=== PATIENT | female | born 1990 | race Caucasian/White ===

== ENCOUNTER 2021-01-26 09:36 | Outpatient (CLI) | payer OTHER, SELFPAY ==
--- NOTE | 2021-01-26 11:30 | NEURO_ITS ---
Impression: # Complains of hand numbness. # Severe right Carpal Tunnel Syndrome. # Mild left Carpal Tunnel Syndrome. # No ulnar neuropathy. # There is cross innervation from ulnar to median noted. # Normal needle/EMG exam. Nerve Conduction Studies Anti Sensory Summary Table Stim Site NR Peak (ms) P-T Amp (?V) Site1 Site2 Delta-P (ms) Dist (cm) Hari (m/s) Left Median Anti Sensory (2-3nd Digit) Wrist 4.1 5.1 Wrist 2-3nd Digit 4.1 14.0 34 Wrist 4.4 15.7 Wrist 2-3nd Digit 4.1 14.0 34 Right Median Anti Sensory (2-3nd Digit) Wrist 4.9 29.6 Wrist 2-3nd Digit 4.9 14.0 29 Wrist 5.6 9.5 Wrist 2-3nd Digit 4.9 14.0 29 Left Radial Anti Sensory (Base 1st Digit) Wrist 1.8 25.2 Wrist Base 1st Digit 1.8 0.0 Right Radial Anti Sensory (Base 1st Digit) Wrist 1.9 41.3 Wrist Base 1st Digit 1.9 0.0 Left Ulnar Anti Sensory (5th Digit) Wrist 1.9 98.4 Wrist 5th Digit 1.9 14.0 74 Right Ulnar Anti Sensory (5th Digit) Wrist 1.8 88.6 Wrist 5th Digit 1.8 14.0 78 Motor Summary Table Stim Site NR Onset (ms) O-P Amp (mV) Site1 Site2 Delta-0 (ms) Dist (cm) Hari (m/s) Left Median Motor (Abd Poll Brev) Wrist 3.8 0.7 Elbow Wrist 4.3 24.0 56 Elbow 8.1 0.5 Right Median Motor (Abd Poll Brev) Wrist 5.7 1.0 Elbow Wrist 5.4 28.0 52 Elbow 11.1 1.1 Left Ulnar Motor (Abd Dig Minimi) Wrist 2.7 4.3 A Elbow Wrist 4.3 24.0 56 A Elbow 7.0 4.7 Right Ulnar Motor (Abd Dig Minimi) Wrist 2.0 7.0 A Elbow Wrist 4.3 25.0 58 A Elbow 6.3 5.8 F Wave Studies NR F-Lat (ms) L-R F-Lat (ms) Left Median (Mrkrs) (Abd Poll Brev) 27.25 0.47 Right Median (Mrkrs) (Abd Poll Brev) 27.72 0.47 Left Ulnar (Mrkrs) (Abd Dig Min) 24.28 0.52 Right Ulnar (Mrkrs) (Abd Dig Min) 24.80 0.52 EMG Side Muscle Nerve Root Ins Act Fibs Amp Dur Recrt Comment Right 1stDorInt Ulnar C8-T1 Nml Nml Nml Nml Nml Right Ext Indicis Radial (Post Int) C7-8 Nml Nml Nml Nml Nml Right Ext Digitorum Radial (Post Int) C7-8 Nml Nml Nml Nml Nml Right BrachioRad Radial C5-6 Nml Nml Nml Nml Nml Right PronatorTeres Median C6-7 Nml Nml Nml Nml Nml Right Abd Poll Brev Median C8-T1 Nml Nml Nml Nml Nml Left 1stDorInt Ulnar C8-T1 Nml Nml Nml Nml Nml Left Ext Indicis Radial (Post Int) C7-8 Nml Nml Nml Nml Nml Left Ext Digitorum Radial (Post Int) C7-8 Nml Nml Nml Nml Nml Left BrachioRad Radial C5-6 Nml Nml Nml Nml Nml Left PronatorTeres Median C6-7 Nml Nml Nml Nml Nml Left Abd Poll Brev Median C8-T1 Nml Nml Nml Nml Nml MTDD
== END 2021-01-26 09:37 | disposition home or self-care (01) ==
PROVIDERS: Family Provider Family Medicine; PCP Nurse Practitioner; Visit Provider Internal Medicine Gastroenterology
DX: R20.2 Paresthesia of skin (principal); G56.03 Carpal tunnel syndrome, bilateral upper limbs
CPT/HCPCS: 95886; 95911

== ENCOUNTER 2021-04-16 17:59 | Emergency (ER) | payer OTHER, SELFPAY ==
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
[2021-04-16 18:11] VITALS: BP 91/75; PULSE 110; RESP 16; TEMP 37.3; O2SAT 100
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
[2021-04-16 18:14] VITALS: BP 91/75; PULSE 110; RESP 16; TEMP 37.3; O2SAT 100
== END 2021-04-16 18:46 | disposition home or self-care (01) ==
PROVIDERS: Emergency Provider Nurse Practitioner; PCP Nurse Practitioner
DX: M25.512 Pain in left shoulder (principal); V49.40XA Driver injured in collision with unspecified motor vehicles in traffic accident, initial encounter
CPT/HCPCS: 73030; 99213; A4565; G0463

== ENCOUNTER 2021-05-29 10:18 | Emergency (ER) | payer OTHER, SELFPAY ==
--- NOTE | 2021-05-29 10:21 | ED.URI ---
HPI - URI/Sore Throat General Chief Complaint: Upper Respiratory Infection Stated Complaint: Coughing, fever, nausea, diarrhea Time Seen by Provider: 05/29/21 10:21 Source: patient and RN notes reviewed History of Present Illness HPI Narrative: Patient is a 30-year-old female who presents the urgent care with complaints of cough, fever, nausea, diarrhea and body aches. Patient states it started on . Patient has been vaccinated for Covid. States that she has been using DayQuil, [id number] antihistamines and ibuprofen for her symptoms. States that the coughing fits have been causing some wheezing and a little bit of shortness of breath. Patient is a current smoker. No other acute complaints. No acute distress noted. Patient aware of the plan of care. Some parts of this dictation were generated by voice recognition software and may contain typographical and/or grammatical inaccuracies. Related Data Home Medications Medication Instructions Recorded Confirmed bupropion HCl 100 mg PO DAILY 04/16/21 05/29/21 escitalopram oxalate 10 mg PO DAILY 04/16/21 05/29/21 hydroxyzine HCl 50 mg PO DAILY 04/16/21 05/29/21 naltrexone microspheres [Vivitrol] 380 mg IM MONTHLY 04/16/21 05/29/21 cetirizine 10 mg PO DAILY 05/29/21 05/29/21 quetiapine 300 mg PO DAILY 05/29/21 05/29/21 Review of Systems Review of Systems: CONSTITUTIONAL: Reports of fever, chills EYES: Denies visual changes, redness, or discharge. ENT: Reports of sore throat, left otalgia, congestion, postnasal drainage CARDIOVASCULAR: Denies chest pain, palpitations, or edema. RESPIRATORY: Reports of cough and wheezing GASTROINTESTINAL: Denies abdominal pain, nausea, vomiting, or diarrhea. GENITOURINARY: Denies dysuria or hematuria. SKIN: Denies rash or itching. MUSCULOSKELETAL: Denies back pain, joint pain. Reports body aches NEUROLOGIC: Denies headache, numbness, or weakness. All other systems reviewed are negative, except as documented in HPI. [facility] Social History Social History Gender identity (if verbalized by the patient): Female Comments At the time of my signature, I reviewed and agree with the nursing past medical, surgical, social, and family history. There is no relevant family history pertinent to the patient complaint. Exam Narrative: GENERAL: This is a well-nourished, well-developed patient, in no apparent distress. HEAD: normocephalic, atraumatic. EYES: PERRL. Sclera clear/white. Vision is grossly intact. EARS: External ears normal, auditory canals clear and without drainage, mild fluid noted behind bilateral TMs, TMs normal without perforation. Hearing grossly intact. NOSE: External nose normal with no obvious nasal discharge, nares without redness, clear rhinorrhea. THROAT: Mucous membranes moist, posterior pharynx clear. Mild postnasal drainage NECK: Neck supple, non-tender without lymphadenopathy CARDIOVASCULAR: Regular rate and rhythm without murmurs, gallops, or rubs. RESPIRATORY: Inspiratory and expiratory wheezes to left upper lobe. Otherwise clear SKIN: warm, intact with no suspicious lesions or rash, good texture and turgor. NEURO: awake, alert, and oriented to person, place and time. There were no obvious focal neurologic abnormalities. EXTREMITIES: No clubbing, cyanosis, or edema. Course Vital Signs Vital signs: Vital Signs Temperature 98.9 F 05/29/21 10:27 Pulse Rate 106 H 05/29/21 10:27 Respiratory Rate 20 05/29/21 10:27 Blood Pressure 125/69 05/29/21 10:27 Pulse Oximetry 100 05/29/21 10:27 Temperature 98.9 F 05/29/21 10:27 Pulse Rate 106 H 05/29/21 10:27 Respiratory Rate 20 05/29/21 10:27 Blood Pressure 125/69 05/29/21 10:27 Pulse Oximetry 100 05/29/21 10:27 Reviewed MDM - URI/Sore Throat MDM Narrative Medical decision making narrative: Reviewed lab results with the patient. Aware that rapid Covid, strep and influenza swabs were all negative. We will culture the strep swab and call y
[2021-05-29 10:27] VITALS: BP 125/69; PULSE 106; RESP 20; TEMP 37.2; O2SAT 100
== END 2021-05-29 10:53 | disposition home or self-care (01) ==
PROVIDERS: Emergency Provider Nurse Practitioner Family; PCP Nurse Practitioner
DX: J40 Bronchitis, not specified as acute or chronic (principal); Z20.822 Contact with and (suspected) exposure to COVID-19; J32.9 Chronic sinusitis, unspecified
CPT/HCPCS: 87081; 87426; 87804; 87880; 99213; C9803; G0463

== ENCOUNTER 2021-06-27 13:33 | Emergency (ER) | payer OTHER, SELFPAY ==
--- NOTE | ~2021-06-27 | CT_ITS ---
EXAMINATION: CT abdomen pelvis w con DATE: 06/28/2021 02:00 INDICATION: Abdominal pain. Nausea and vomiting. TECHNIQUE: Computed tomography (CT) of the abdomen and pelvis was performed with 100 mL Omnipaque 350 intravenous contrast. Automated exposure control and iterative reconstruction technique were employe d. The dose-length product was 599.82 mGy-cm. COMPARISON: Chest CT 12/04/2015 FINDINGS: The visualized portions of the lung bases demonstrate mild atelectasis on the right. No ple ural effusion. The heart size is normal. No pericardial effusion. There is a small sliding hiatal her keyla. The liver is normal. There are changes of cholecystectomy. The spleen, pancreas, adrenal glands, and kidneys are normal. There are no dilated loops of bowel. The appendix is normal. There are no pa thologically enlarged lymph nodes. There is no free intraperitoneal fluid. 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 IMPRESSION: 1. Small sliding hiatal hernia. Reviewed, dictated and finalized at location A.
[2021-06-27 14:32] VITALS: BP 132/107; PULSE 92; RESP 14; TEMP 36.2; O2SAT 99
[2021-06-27 14:59] LABS: Basophils Absolute Auto 0.1 K/mm3 (0.0-0.1); Basophils Percent Auto 0.9 % (0.2-1.2); Eosinophils Absolute Auto 0.2 K/mm3 (0-0.3); Eosinophils Percent Auto 2.5 % (0-4.4); Hematocrit 41.2 % (37.0-47.0); Hemoglobin 13.5 g/dL (12.0-15.0); Immature Granulocyte Absolute 0.02 K/mm3 (0.00-0.031); Immature Granulocyte Percent A 0.3 % (0-0.5); Lymphocytes Absolute Auto 1.81 K/mm3 (0.9-3.2); Lymphocytes Percent Auto 26.5 % (18.3-44.2); Mean Corpuscular HGB Conc 32.8 g/dl (32-36); Mean Corpuscular Hemoglobin 26.8 pg (26-34); Mean Corpuscular Volume 81.9 fl (80-100); Mean Platelet Volume 9.4 fl (7.4-10.4); Monocytes Absolute Auto 0.7 K/mm3 (0.1-0.6); Monocytes Percent Auto 10.7 % (2.6-8.5); Neutrophils Percent Auto 59.1 % (45.5-73.1); Platelet Count Result 415 k/mm3 (150-375); Red Blood Count 5.03 M/mm3 (4.2-5.4); White Blood Count 6.8 K/mm3 (4.5-10.0)
[2021-06-27 15:12] LABS: Alanine Aminotransferase 103 U/L (4-35); Albumin Level 4.8 g/dL (3.5-5.1); Alkaline Phosphatase 71 U/L (38-126); Anion Gap 11 mmol/L (8-16); Aspartate Amino Transferase 67 U/L (14-36); Bilirubin,Total 0.5 mg/dL (0.2-1.3); Blood Urea Nitrogen 18 mg/dL (7-17); Calcium 9.7 mg/dL (8.4-10.2); Carbon Dioxide 29 mmol/L (22-30); Chloride 96 mmol/L (98-107); Estimated Glomerular Filt Rate > 60; Glucose 114 mg/dL (65-110); Lipase 168 U/L (23-300); Potassium 2.9 mmol/L (3.4-5.0); Sodium 136 mmol/L (137-145)
[2021-06-27 16:32] VITALS: BP 135/96; PULSE 110; RESP 18; TEMP 36.7; O2SAT 99
[2021-06-27 16:53] LABS: Add Urine Microscopic? YES; Appearance Urine Clear (Clear); Bilirubin Urine 1+ (Negative); Blood Urine Negative (Negative); Color Urine Amber (Yellow); Glucose Urine UA Negative (Negative); Ketones Urine 1+ mg/dL (Negative); Leukocyte Esterase Ur Negative LEU/UL (Negative); Mucus Urine Heavy /lpf; Nitrate Urine Negative (Negative); Protein Urine 2+ mg/dL (Negative); RBC Urine 0-2 /hpf (0-2); Specific Grav Ur 1.029 (1.001-1.035); Squamous Epithelial Cell Urine Few /hpf (Few)
[2021-06-27 19:45] VITALS: BP 138/91; PULSE 102; RESP 20; TEMP 36.8; O2SAT 99
[2021-06-27 22:35] VITALS: BP 125/95; PULSE 95; RESP 16; TEMP 36.8; O2SAT 97
--- NOTE | 2021-06-27 23:23 | ED.NAVMDI ---
HPI - Nausea/Vomiting/Diarrhea General Chief complaint: Nausea/Vomiting/Diarrhea Stated complaint: n/v, abd pain Time Seen by Provider: 06/27/21 22:42 Source: patient History of Present Illness HPI Narrative: Patient presents with nausea vomiting and abdominal pain. Patient reports her pain is primarily epigastric area described as achy/sharp. Her pain is constant no radiation appears to be exacerbated by eating food. She is attempted Zofran on H2 and PPIs at home without relief of her symptoms so she came in for evaluation. She reports she has not had a bowel movement in few days and she has had decreased urine output. She denies any chest pain, shortness of breath, fevers, recent antibiotics, diarrhea Related Data Home Medications Medication Instructions Recorded Confirmed bupropion HCl 100 mg PO DAILY 04/16/21 05/29/21 escitalopram oxalate 10 mg PO DAILY 04/16/21 05/29/21 hydroxyzine HCl 50 mg PO DAILY 04/16/21 05/29/21 naltrexone microspheres [Vivitrol] 380 mg IM MONTHLY 04/16/21 05/29/21 cetirizine 10 mg PO DAILY 05/29/21 05/29/21 quetiapine 300 mg PO DAILY 05/29/21 05/29/21 Allergies Allergy/AdvReac Type Severity Reaction Status Date / Time No Known Allergies Allergy Verified 06/27/21 22:43 Review of Systems Review of Systems: CONSTITUTIONAL: Denies fever, chills, or sweats. EYES: Denies visual changes, redness, or discharge. ENT: Denies rhinorrhea, congestion, sore throat, or otalgia. CARDIOVASCULAR: Denies chest pain, palpitations, or edema. RESPIRATORY: Denies cough or dyspnea. GASTROINTESTINAL: Denies diarrhea. GENITOURINARY: Denies dysuria or hematuria. SKIN: Denies rash or itching. MUSCULOSKELETAL: Denies back pain, joint pain, or myalgia. NEUROLOGIC: Denies headache, numbness, dizziness, or weakness. PSYCHIATRIC: Denies anxiety or depression. All systems reviewed & are unremarkable except as noted in HPI and below PMFSH Social History Social History Gender identity (if verbalized by the patient): Female Exam Narrative: GENERAL: Well-appearing, well-nourished, and in no acute distress. HEAD: Normocephalic, atraumatic. EYES: PERRLA and EOMI. ENT: Nares clear, no rhinorrhea or epistaxis. Mucous membranes moist. NECK: Supple. No masses. No JVD ABDOMEN: Moderate tenderness in the epigastric area soft, nondistended, normal active bowel sounds. EXTREMITIES: Normal range of motion. No edema. SKIN: Warm, dry, no rash. NEURO: No focal deficits. Alert and oriented x3. PSYCH: Normal mood and affect. Course Reevaluation(s) Reevaluation #1: Patient reports feeling much improved labs and imaging reviewed with patient. Patient comfortable with the outpatient plan. Date: 06/28/21 Time: 04:09 Vital Signs Vital signs: Vital Signs Temperature 36.2 C L 06/27/21 14:32 Pulse Rate 92 06/27/21 14:32 Respiratory Rate 14 06/27/21 14:32 Blood Pressure 132/107 H 06/27/21 14:32 Pulse Oximetry 99 06/27/21 14:32 Temperature 36.8 C 06/27/21 22:35 Pulse Rate 69 06/28/21 04:27 Respiratory Rate 26 H 06/28/21 04:27 Blood Pressure 101/64 06/28/21 04:27 Pulse Oximetry 97 06/28/21 04:27 MDM - Nausea/Vomiting/Diarrhea MDM Narrative Medical decision making narrative: H&P as above, vss, pt looks clinically well, exam with moderate abdominal pain, labs with mild hypokalemia otherwise clinically unremarkable img clinically unremarkable, additional labs/img considered. symptomatic relief available as needed, on reevaluation pt continues to looks clinically well. Symptoms remain of unclear etiology they represent a viral process, dns acute abdomen, bowel obstruction, perforation, pancreatitis. plan to tx/monitor as op w/ pcm f/u findings/plan discussed with pt, pt agree/comfortable with plan, return precautions given Lab Data Result diagrams: 06/27/21 14:39 06/27/21 14:39 Labs: Lab Results 06/27/21
[2021-06-27] MEDS: ONDANSETRON INJ 4 MG/2 ML VIAL IV PUSH (23:47)
[2021-06-27] MEDS: SODIUM CHLORIDE 0.9% IV 2,000 ML 999 ML IV CONT (23:48)
[2021-06-27 23:55] VITALS: BP 124/90; PULSE 73; RESP 11; O2SAT 97
[2021-06-28 01:23] VITALS: BP 99/59; PULSE 65; RESP 13; O2SAT 96
[2021-06-28] MEDS: fentaNYL CITRATE INJ (*CRX) 100 MCG/2 ML VIAL 50 MCG IV PUSH ×2 (01:36→03:57)
[2021-06-28 03:56] VITALS: BP 102/64; PULSE 64; RESP 13; O2SAT 97
[2021-06-28 04:27] VITALS: BP 101/64; PULSE 69; RESP 26; O2SAT 97
== END 2021-06-28 04:34 | disposition home or self-care (01) ==
PROVIDERS: Emergency Medicine; Emergency Provider Emergency Medicine; PCP Nurse Practitioner
DX: E87.6 Hypokalemia (principal); R10.9 Unspecified abdominal pain; R11.2 Nausea with vomiting, unspecified
CPT/HCPCS: 36415; 74177; 80053; 81001; 81025; 83690; 85025; 96361; 96365; 96374; 96375; 99284; J0131; J2405; J3010; J7030; Q9967

== ENCOUNTER 2021-11-01 11:12 | Emergency (ER) | payer OTHER, SELFPAY ==
[2021-11-01 11:25] VITALS: BP 120/74; PULSE 85; RESP 18; TEMP 36.9; O2SAT 100
--- NOTE | 2021-11-01 11:36 | ED.URI ---
HPI - URI/Sore Throat General Chief Complaint: Upper Respiratory Infection Stated Complaint: bodyache,cough,sneezing Time Seen by Provider: 11/01/21 11:58 Source: patient and RN notes reviewed Mode of arrival: ambulatory Limitations: no limitations History of Present Illness HPI Narrative: 31-year-old female presents with concern for 4-day history of body aches, sore throat, cough, runny nose, sneezing. Reports her son has COVID. Reports she has been taking ibuprofen. She denies shortness of breath, fever. MD elicited complaint: cough and sore throat Related Data Home Medications Medication Instructions Recorded Confirmed bupropion HCl 100 mg PO DAILY 04/16/21 11/01/21 escitalopram oxalate 10 mg PO DAILY 04/16/21 11/01/21 quetiapine 300 mg PO DAILY 05/29/21 11/01/21 Allergies Allergy/AdvReac Type Severity Reaction Status Date / Time No Known Allergies Allergy Verified 11/01/21 11:36 Review of Systems Review of Systems: CONSTITUTIONAL: Reports malaise. Denies chills, sweats, or fever. EYES: Denies visual changes, redness, or discharge. ENT: Reports rhinorrhea, congestion, and sore throat. Denies sinus pain, otalgia CARDIOVASCULAR: Denies chest pain, palpitations, or edema. RESPIRATORY: Reports cough. Denies dyspnea. GASTROINTESTINAL: Denies abdominal pain, nausea, vomiting, diarrhea SKIN: Denies rash or itching. MUSCULOSKELETAL: Reports myalgia. NEUROLOGIC: Denies headache. All systems reviewed & are unremarkable except as noted in HPI and below PMFSH Social History Social History Gender identity (if verbalized by the patient): Female Comments At time of signature, agree with nursing past medical, surgical, social and family history. There is no relevant family history pertinent to the presenting complaint Exam Narrative: GENERAL: Well-appearing, well-nourished, and in no acute distress. HEAD: Normocephalic EYES: PERRLA, conjunctivae clear ENT: Nares clear, turbinates edematous and erythematous, clear discharge. Mucous membranes moist. TM pearly muñoz with dull light reflex bilaterally; no tragal tenderness. Oropharynx not erythematous without lesions. Tonsils not enlarged and without exudate, no drooling, no hoarseness, no trismus, uvula midline. NECK: Supple. No lymphadenopathy CHEST: Clear to auscultation, breath sounds equal. No wheezing, rhonchi, rales, or stridor. No respiratory distress, speaks in full sentences. HEART: Regular rate and rhythm. No murmur heard. SKIN: Warm, dry, no rash. NEURO: Alert and oriented x3. PSYCH: Normal mood and affect Course Course Emergency Course: Patient is aware of diagnosis, understands and agrees to treatment plan. Anticipatory guidance given. Patient agrees to follow-up as directed and is aware of reasons to seek care at the emergency department. Portions of this record may have been created with voice recognition software Level of Care: Express Care Visit Vital Signs Vital signs: Vital Signs Temperature 98.4 F 11/01/21 11:25 Pulse Rate 85 11/01/21 11:25 Respiratory Rate 18 11/01/21 11:25 Blood Pressure 120/74 11/01/21 11:25 Pulse Oximetry 100 11/01/21 11:25 Temperature 98.4 F 11/01/21 11:25 Pulse Rate 85 11/01/21 11:25 Respiratory Rate 18 11/01/21 11:25 Blood Pressure 120/74 11/01/21 11:25 Pulse Oximetry 100 11/01/21 11:25 Reviewed. MDM - URI/Sore Throat MDM Narrative Medical decision making narrative: Differential diagnosis considered: Ellis virus, strep pharyngitis, allergic rhinitis, upper respiratory tract infection, sinusitis, rhinosinusitis, nasopharyngitis. viral pharyngitis, otitis media, otitis externa, pneumonia, bronchitis, viral cough syndrome, viral syndrome, and influenza. Exam findings show no acute concerns or changes; patient is non-toxic appearing and is in no distress. Patient is appropriate for outpatient treatment and follow-up. Lab Data Attesta
== END 2021-11-01 12:10 | disposition home or self-care (01) ==
PROVIDERS: Emergency Provider Nurse Practitioner; PCP Nurse Practitioner
DX: U07.1 COVID-19 (principal); F41.9 Anxiety disorder, unspecified
CPT/HCPCS: 87426; 99213; C9803; G0463

== ENCOUNTER 2021-12-13 10:01 | Emergency (ER) | payer OTHER, SELFPAY ==
--- NOTE | ~2021-12-13 | XR_ITS ---
EXAMINATION: XR chest 2V DATE: 12/13/2021 10:23 INDICATION: Cough, COVID TECHNIQUE: PA and lateral views of the chest are obtained. COMPARISON: 12/04/2015 FINDINGS: There are minimal airspace disease of the lung bases. There is no pleural effusion or pneum othorax. The cardiomediastinal silhouette is normal. There is mild thoracic spondylosis. IMPRESSION: 1. Minimal bibasilar airspace opacities, consistent with atelectasis versus pneumonia. Reviewed, dictated and finalized at location A. DIE INSPECTOR IMPRESSION: 1. Minimal bibasilar airspace opacities, consistent with atelectasis versus pne umonia.
[2021-12-13 10:11] VITALS: BP 105/72; PULSE 100; RESP 20; TEMP 36.4; O2SAT 100
--- NOTE | 2021-12-13 10:15 | ED.GENADULT ---
HPI - General Adult General Chief complaint: Upper Respiratory Infection Stated complaint: cough Source: patient Mode of arrival: ambulatory Limitations: no limitations History of Present Illness HPI narrative: 31 y/o female. PMHx MDD. Presents to [facility] today with acute complaints of semi-productive cough, nasal congestion, as well as bilateral otalgia (LT > burdensome than RT). She reports these manifestations to have been worsening in the past 1 week. Serotherapeutic reliefs with home OTC remedies. Additional pertinents include Covid 19 positive 12/02/2021. Denies fever. No chest pain, palpitations, edema. No wheezing, hemopytosis. Client is without additional acute c/o illness upon PE. Related Data Home Medications Medication Instructions Recorded Confirmed bupropion HCl 100 mg PO DAILY 04/16/21 12/13/21 escitalopram oxalate 10 mg PO DAILY 04/16/21 12/13/21 quetiapine 300 mg PO DAILY 05/29/21 12/13/21 pregabalin 75 mg PO BID 12/13/21 12/13/21 Allergies Allergy/AdvReac Type Severity Reaction Status Date / Time No Known Allergies Allergy Verified 12/13/21 10:15 Review of Systems Review of Systems: CONSTITUTIONAL: Denies fever, chills, sweats. EYES: Denies visual changes, redness, discharge. ENT: Positive rhinorrhea, congestion, otalgia. CARDIOVASCULAR: Denies chest pain, palpitations, edema. RESPIRATORY: Denies dyspnea, wheezing. Positive cough GASTROINTESTINAL: Denies abdominal pain, nausea, vomiting, diarrhea. GENITOURINARY: Denies dysuria, hematuria, abnormal discharge SKIN: Denies rash or itching. MUSCULOSKELETAL: Denies acute back pain, joint pain, or myalgia. NEUROLOGIC: Denies numbness, or focal weakness. PSYCHIATRIC: Denies anxiety or depression. All systems reviewed & are unremarkable except as noted in HPI and below PMFSH Social History Social History Gender identity (if verbalized by the patient): Female Exam Narrative: GENERAL: This is a well-nourished, well-developed adult, in no apparent distress. HEAD: normocephalic, atraumatic. EYES: PERRL. EARS: External ears normal, auditory canals clear and without drainage, TMs erythematous. NOSE: External nose normal. Positive Rhinorrhea, no obstruction, nares patent. THROAT: Mucous membranes moist, posterior pharynx erythematous, without exudative burden. NECK: Neck supple, non-tender without lymphadenopathy, masses or thyromegaly. CARDIOVASCULAR: Regular rate and rhythm without murmurs, gallops, or rubs. RESPIRATORY: Upper airway Rhonchi, cleared with cough. No wheezes, rales, or distress. GASTROINTESTINAL: Abdomen soft, non-tender. SKIN: warm, intact. NEURO: Alert, active, and age appropriate. No focal neurologic deficits. Course Course Level of Care: Express Care Visit Vital Signs Vital signs: Vital Signs Temperature 36.4 C 12/13/21 10:11 Pulse Rate 100 12/13/21 10:11 Respiratory Rate 20 12/13/21 10:11 Blood Pressure 105/72 12/13/21 10:11 Pulse Oximetry 100 12/13/21 10:11 Temperature 36.4 C 12/13/21 10:11 Pulse Rate 100 12/13/21 10:11 Respiratory Rate 20 12/13/21 10:11 Blood Pressure 105/72 12/13/21 10:11 Pulse Oximetry 100 12/13/21 10:11 Medical Decision Making MDM Narrative Medical decision making narrative: -Afebrile, No hypoxemia or respiratory distress. -Plain film chest imaging reveals minimal bibasilar airspace opacities, consistent with atelectasis versus pneumonia. -Start Augmentin, Medrol, & Pro-Air HFA PRN (S/S > 5 days consider additional bacterial component following latent viral illness) (Zpack contraindicated-may prolong QT with concurrent SSRI). -May resume additional home OTC remedies as needed for other symptomatic reliefs. -PCP F/U 1 WK. -ER W/Emergent health status changes. -Pt voices no additional questions or concerns, and agrees. Differential Diagnosis Differential Diagnosis: Differ
== END 2021-12-13 10:44 | disposition home or self-care (01) ==
PROVIDERS: Emergency Provider Nurse Practitioner Adult Health; PCP Nurse Practitioner
DX: J40 Bronchitis, not specified as acute or chronic (principal); J06.9 Acute upper respiratory infection, unspecified; Z86.16 Personal history of COVID-19
CPT/HCPCS: 71046; 99213; G0463

== ENCOUNTER 2021-12-29 18:56 | Emergency (ER) | payer OTHER, SELFPAY ==
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
[2021-12-29 18:53] VITALS: BP 134/78; PULSE 112; RESP 22; TEMP 36.7; O2SAT 97
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
[2021-12-29] MEDS: KETOROLAC 30 MG/ML VIAL (*BKC) IM (20:07)
== END 2021-12-29 20:14 | disposition home or self-care (01) ==
LOC: ANHED 20:16
PROVIDERS: Emergency Provider Emergency Medicine; PCP Nurse Practitioner
DX: S93.401A Sprain of unspecified ligament of right ankle, initial encounter (principal); S96.911A Strain of unspecified muscle and tendon at ankle and foot level, right foot, initial encounter; R60.0 Localized edema; T14.90XA Injury, unspecified, initial encounter
CPT/HCPCS: 73610; 96372; 99283; J1885

== ENCOUNTER 2022-05-16 11:22 | Emergency (ER) | payer OTHER, SELFPAY ==
--- NOTE | ~2022-05-16 | CT_ITS ---
EXAMINATION: CT abdomen pelvis w con INDICATION: Flank pain, recent urinary tract infection TECHNIQUE: Computed tomographic images of the abdomen and pelvis were obtained after the administrati on of 100 cc of Omnipaque 300 intravenous contrast. The dose-length product (DLP) was 679.67 mGy-cm. Automated exposure control and iterative reconstruction technique were employed. COMPARISON: 06/28/2021 FINDINGS: The lung bases are clear. The heart size is normal. The gallbladder is surgically absent. T he liver, spleen, pancreas, and adrenal glands are normal. There is mild patchy perfusion of the kidn eys. No pathologically enlarged abdominal or pelvic lymph nodes are identified. There is no free intr aperitoneal gas or evidence of bowel obstruction. There is wall thickening of the urinary bladder whi ch is decompressed. The appendix is normal. There is a tiny fat-containing umbilical hernia. Mild lum bar spondylosis is noted. IMPRESSION: 1. Mild wall thickening of the urinary bladder, consistent with cystitis. Subtle patchy perfusion of the kidneys could reflect pyelonephritis. Reviewed, dictated and finalized at location B. IMPRESSION: 1. Mild wall thickening of the urinary bladder, consistent with cystitis. Subtl e patchy perfusion of the kidneys could reflect pyelonephritis.
[2022-05-16 11:25] VITALS: BP 119/87; PULSE 104; RESP 17; TEMP 36.4; O2SAT 98
[2022-05-16 11:32] VITALS: BP 104/68; O2SAT 96
--- NOTE | 2022-05-16 11:39 | ED.FEMALEGU ---
HPI - Female Genitourinary General Chief complaint: Urogenital-Female Stated complaint: vomiting, UTI Time Seen by Provider: 05/16/22 11:31 History of Present Illness HPI Narrative: 31-year-old female presents the emergency room for evaluation of suprapubic pain and right flank pain. Patient states 4 days ago she was diagnosed with a urinary tract infection and started on Cipro. Patient states that she developed low back pain yesterday and became diaphoretic. Patient is concerned that she might have a kidney infection. Patient also endorses nausea and vomiting Related Data Home Medications Medication Instructions Recorded Confirmed bupropion HCl 100 mg tablet,12 hr 100 mg PO DAILY 04/16/21 12/13/21 sustained-release escitalopram oxalate 10 mg tablet 10 mg PO DAILY 04/16/21 12/13/21 quetiapine 300 mg tablet 300 mg PO DAILY 05/29/21 12/13/21 pregabalin 75 mg capsule 75 mg PO BID 12/13/21 12/13/21 Allergies Allergy/AdvReac Type Severity Reaction Status Date / Time No Known Allergies Allergy Verified 05/16/22 11:29 Review of Systems Review of Systems: CONSTITUTIONAL: Denies fever, chills, or sweats. EYES: Denies visual changes, redness, or discharge. ENT: Denies rhinorrhea, congestion, sore throat, or otalgia. CARDIOVASCULAR: Denies chest pain, palpitations, or edema. RESPIRATORY: Denies cough or dyspnea. GASTROINTESTINAL: Reports right flank pain GENITOURINARY: Reports dysuria or hematuria. SKIN: Denies rash or itching. MUSCULOSKELETAL: Denies back pain, joint pain, or myalgia. NEUROLOGIC: Denies headache, numbness, dizziness, or weakness. PSYCHIATRIC: Denies anxiety or depression. [facility] Social History Social History Gender identity (if verbalized by the patient): Female Exam Narrative: GENERAL: Ill-appearing, well-nourished, no physical limitations, and diaphoretic EYES: Conjunctivae normal, PERRLA and EOMI. CHEST: Clear to auscultation. No respiratory distress. No wheezes rales or rhonchi. No tenderness. HEART: Regular rate and rhythm. No murmur heard. Normal peripheral pulses. ABDOMEN: Soft, nontender, nondistended, normal active bowel sounds. BACK: Right CVA tenderness EXTREMITIES: Normal range of motion. No edema. No clubbing or cyanosis SKIN: Warm, dry, no rash. No noted wounds NEURO: No focal deficits. Alert and oriented x3. MAEW. CN's II-XI intact bilaterally, normal gait PSYCH: Cooperative. Normal mood and affect. Course Vital Signs Vital signs: Vital Signs Temperature 36.4 C L 05/16/22 11:25 Pulse Rate 104 H 05/16/22 11:25 Respiratory Rate 17 05/16/22 11:25 Blood Pressure 119/87 05/16/22 11:25 Pulse Oximetry 98 05/16/22 11:25 Oxygen Delivery Room Air 05/16/22 11:25 Temperature 36.4 C L 05/16/22 11:25 Pulse Rate 104 H 05/16/22 11:25 Respiratory Rate 17 05/16/22 11:25 Blood Pressure 104/73 05/16/22 12:31 Pulse Oximetry 93 05/16/22 12:31 Oxygen Delivery Room Air 05/16/22 11:25 MDM - Female Genitourinary MDM Narrative Medical decision making narrative: 31-year-old female presented emergency room for evaluation of suprapubic pain and right flank pain. Patient was diagnosed with a urinary tract infection 4 days ago and has been on Cipro. Patient states that the dysuria is continued and now is experiencing low back and flank pain. CT scan showed a cystitis with possible early pyelonephritis. No signs of leukocytosis or acidosis. Patient was given a 2 L of fluid and a gram of Rocephin. We will have patient begin taking Keflex and discontinue the Cipro. Lab Data Result diagrams: 05/16/22 11:48 05/16/22 11:48 Labs: Lab Results 05/16/22 05/16/22 05/16/22 Range/Units 11:48 11:48 11:48 WBC 6.0 (4.5-10.0) K/mm3 RBC 4.90 (4.2-5.4) M/mm3 Hgb 12.3 (12.0-15.0) g/dL Hct 39.7 (37.0-47.0) % MCV 81.0 (80-100) fl MCH 25.1 L (26-34) pg M
[2022-05-16 11:55] LABS: Basophils Percent Auto 0.7 % (0.2-1.2); Eosinophils Absolute Auto 0.3 K/mm3 (0-0.3); Eosinophils Percent Auto 4.3 % (0-4.4); Hematocrit 39.7 % (37.0-47.0); Hemoglobin 12.3 g/dL (12.0-15.0); Immature Granulocyte Absolute 0.02 K/mm3 (0.00-0.031); Immature Granulocyte Percent A 0.3 % (0-0.5); Lymphocytes Absolute Auto 2.13 K/mm3 (0.9-3.2); Lymphocytes Percent Auto 35.5 % (18.3-44.2); Mean Corpuscular Hemoglobin 25.1 pg (26-34); Mean Platelet Volume 10.1 fl (7.4-10.4); Monocytes Absolute Auto 0.6 K/mm3 (0.1-0.6); Monocytes Percent Auto 9.8 % (2.6-8.5); Neutrophils Percent Auto 49.4 % (45.5-73.1); Platelet Count Result 404 k/mm3 (150-375)
[2022-05-16] MEDS: SODIUM CHLORIDE 0.9% IV 1,000 ML 999 ML IV CONT ×2 (12:00→13:30)
[2022-05-16] MEDS: ONDANSETRON INJ 4 MG/2 ML VIAL IV PUSH (12:00)
[2022-05-16 12:01] VITALS: BP 100/73; O2SAT 95
[2022-05-16] MEDS: ACETAMINOPHEN 500 MG TABLET 1000 MG PO (12:02)
[2022-05-16 12:03] LABS: Appearance Urine Cloudy (Clear); Bilirubin Urine 1+ (Negative); Blood Urine 3+ (Negative); Color Urine Yellow (Yellow); Glucose Urine UA Negative (Negative); Ketones Urine Negative (Negative); Leukocyte Esterase Ur 1+ LEU/UL (Negative); Nitrate Urine Negative (Negative); Protein Urine 3+ mg/dL (Negative); Specific Grav Ur >= 1.030 (1.001-1.035); Urobilinogen Urine 0.2 mg/dL (<2.0); pH Urine 5.5 (5.0-9.0)
[2022-05-16 12:04] LABS: Alanine Aminotransferase 93 U/L (6-35); Albumin Level 4.9 g/dL (3.5-5.1); Alkaline Phosphatase 83 U/L (38-126); Anion Gap 11 mmol/L (8-16); Aspartate Amino Transferase 70 U/L (14-36); Bilirubin,Total 0.4 mg/dL (0.2-1.3); Blood Urea Nitrogen 24 mg/dL (7-17); Calcium 9.9 mg/dL (8.4-10.2); Carbon Dioxide 26 mmol/L (22-30); Chloride 103 mmol/L (98-107); Estimated Glomerular Filt Rate > 60; Glucose 107 mg/dL (65-110); Lipase 73 U/L (23-300); Potassium 3.9 mmol/L (3.4-5.0); Sodium 140 mmol/L (137-145)
[2022-05-16 12:11] LABS: Bacteria Urine Trace /hpf; Mucus Urine Heavy /lpf; Squamous Epithelial Cell Urine Many /hpf (Few); WBC Urine 31-50 /hpf
[2022-05-16 12:12] LABS: Add Urine Microscopic? YES
[2022-05-16 12:31] VITALS: BP 104/73; O2SAT 93
[2022-05-16] MEDS: KETOROLAC 30 MG/ML VIAL (*BKC) IV PUSH (14:28)
[2022-05-16 15:00] VITALS: BP 100/79; PULSE 85; RESP 16; O2SAT 98
== END 2022-05-16 15:00 | disposition home or self-care (01) ==
PROVIDERS: Emergency Provider Nurse Practitioner Family; PCP Nurse Practitioner
DX: N39.0 Urinary tract infection, site not specified (principal); N12 Tubulo-interstitial nephritis, not specified as acute or chronic
CPT/HCPCS: 36415; 74177; 80053; 81001; 81025; 83605; 83690; 85025; 87077; 87086; 87088; 87186; 96361; 96365; 96375; 99284; A9270; J0696; J1885; J2405; J7030; Q9967

== ENCOUNTER 2022-05-19 18:16 | Emergency (ER) | payer OTHER, SELFPAY ==
[2022-05-19 18:19] VITALS: BP 133/87; PULSE 100; RESP 18; TEMP 36.2; O2SAT 99
[2022-05-19 18:40] LABS: Basophils Absolute Auto 0.1 K/mm3 (0.0-0.1); Basophils Percent Auto 0.8 % (0.2-1.2); Eosinophils Absolute Auto 0.4 K/mm3 (0-0.3); Eosinophils Percent Auto 5.2 % (0-4.4); Hematocrit 38.3 % (37.0-47.0); Hemoglobin 11.7 g/dL (12.0-15.0); Immature Granulocyte Absolute 0.02 K/mm3 (0.00-0.031); Immature Granulocyte Percent A 0.3 % (0-0.5); Lymphocytes Absolute Auto 3.29 K/mm3 (0.9-3.2); Lymphocytes Percent Auto 41.4 % (18.3-44.2); Mean Corpuscular HGB Conc 30.5 g/dl (32-36); Mean Corpuscular Hemoglobin 24.9 pg (26-34); Mean Corpuscular Volume 81.7 fl (80-100); Mean Platelet Volume 9.7 fl (7.4-10.4); Monocytes Absolute Auto 0.8 K/mm3 (0.1-0.6); Monocytes Percent Auto 10.3 % (2.6-8.5); Neutrophils Absolute Auto 3.4 K/mm3 (1.3-6.7); Platelet Count Result 449 k/mm3 (150-375); Red Blood Count 4.69 M/mm3 (4.2-5.4)
[2022-05-19 18:43] LABS: Appearance Urine Cloudy (Clear); Bilirubin Urine 1+ (Negative); Blood Urine Negative (Negative); Color Urine Yellow (Yellow); Glucose Urine UA Negative (Negative); Ketones Urine Trace mg/dL (Negative); Leukocyte Esterase Ur Negative LEU/UL (Negative); Nitrate Urine Negative (Negative); Protein Urine 1+ mg/dL (Negative); Specific Grav Ur >= 1.030 (1.001-1.035); Urobilinogen Urine 0.2 mg/dL (<2.0); pH Urine 5.5 (5.0-9.0)
[2022-05-19 18:47] LABS: Amorphous Sediment Urine Few; Bacteria Urine Trace /hpf; Mucus Urine Heavy /lpf; Squamous Epithelial Cell Urine Moderate /hpf (Few)
[2022-05-19 18:48] LABS: Add Urine Microscopic? YES
[2022-05-19 18:48] LABS: Lactic Acid Reflex 1.4 mmol/L (0.7-2.0)
[2022-05-19 18:50] LABS: Alanine Aminotransferase 60 U/L (6-35); Albumin Level 4.8 g/dL (3.5-5.1); Alkaline Phosphatase 86 U/L (38-126); Anion Gap 11 mmol/L (8-16); Aspartate Amino Transferase 37 U/L (14-36); Bilirubin,Total 0.2 mg/dL (0.2-1.3); Blood Urea Nitrogen 19 mg/dL (7-17); Calcium 9.7 mg/dL (8.4-10.2); Carbon Dioxide 32 mmol/L (22-30); Chloride 99 mmol/L (98-107); Estimated Glomerular Filt Rate > 60; Glucose 93 mg/dL (65-110); Potassium 3.9 mmol/L (3.4-5.0); Sodium 142 mmol/L (137-145)
--- NOTE | 2022-05-19 20:13 | ED.FEMALEGU ---
HPI - Female Genitourinary General Chief complaint: Urogenital-Female Stated complaint: PERSISTENT UTI Time Seen by Provider: 05/19/22 18:21 History of Present Illness HPI Narrative: 31-year-old female presents to the emergency room again for continued dysuria, suprapubic pain and low back pain. Patient was seen here 3 days ago diagnosed with early pyelonephritis. Was given 1 g of IV Rocephin and sent home with Keflex. Urine culture was returned today and patient was found to be resistant to Rocephin and Keflex. Denies abdominal pain or fevers. Related Data Home Medications Medication Instructions Recorded Confirmed bupropion HCl 100 mg tablet,12 hr 100 mg PO DAILY 04/16/21 12/13/21 sustained-release escitalopram oxalate 10 mg tablet 10 mg PO DAILY 04/16/21 12/13/21 quetiapine 300 mg tablet 300 mg PO DAILY 05/29/21 12/13/21 pregabalin 75 mg capsule 75 mg PO BID 12/13/21 12/13/21 Allergies Allergy/AdvReac Type Severity Reaction Status Date / Time No Known Allergies Allergy Verified 05/16/22 11:29 Review of Systems Review of Systems: CONSTITUTIONAL: Denies fever, chills, or sweats. EYES: Denies visual changes, redness, or discharge. ENT: Denies rhinorrhea, congestion, sore throat, or otalgia. CARDIOVASCULAR: Denies chest pain, palpitations, or edema. RESPIRATORY: Denies cough or dyspnea. GASTROINTESTINAL: Reports suprapubic pain GENITOURINARY: Reports dysuria or hematuria. SKIN: Denies rash or itching. MUSCULOSKELETAL: Reports low back pain NEUROLOGIC: Denies headache, numbness, dizziness, or weakness. PSYCHIATRIC: Denies anxiety or depression. [facility] Social History Social History Gender identity (if verbalized by the patient): Female Exam Narrative: GENERAL: Well-appearing, well-nourished, no physical limitations, and in no acute distress. HEAD: Normocephalic, atraumatic. EYES: Conjunctivae normal, PERRLA and EOMI. CHEST: Clear to auscultation. No respiratory distress. No wheezes rales or rhonchi. No tenderness. HEART: Regular rate and rhythm. No murmur heard. Normal peripheral pulses. ABDOMEN: Soft, suprapubic tenderness, nondistended, normal active bowel sounds. BACK: No CVA tenderness; no midline lumbar tenderness, no step-offs, no bony abnormality; FROM. Tenderness over the thoracolumbar fascia EXTREMITIES: Normal range of motion. No edema. No clubbing or cyanosis SKIN: Warm, dry, no rash. No noted wounds NEURO: No focal deficits. Alert and oriented x3. MAEW. CN's II-XI intact bilaterally, normal gait PSYCH: Cooperative. Normal mood and affect. Course Vital Signs Vital signs: Vital Signs Temperature 36.2 C L 05/19/22 18:19 Pulse Rate 100 05/19/22 18:19 Respiratory Rate 18 05/19/22 18:19 Blood Pressure 133/87 05/19/22 18:19 Pulse Oximetry 99 05/19/22 18:19 Oxygen Delivery Room Air 05/19/22 18:19 Temperature 36.2 C L 05/19/22 18:19 Pulse Rate 100 05/19/22 18:19 Respiratory Rate 18 05/19/22 18:19 Blood Pressure 133/87 05/19/22 18:19 Pulse Oximetry 99 05/19/22 18:19 Oxygen Delivery Room Air 05/19/22 18:19 MDM - Female Genitourinary Lab Data Result diagrams: 05/19/22 18:32 05/19/22 18:32 Labs: Lab Results 05/19/22 05/19/22 05/19/22 Range/Units 18:32 18:32 18:32 WBC 8.0 (4.5-10.0) K/mm3 RBC 4.69 (4.2-5.4) M/mm3 Hgb 11.7 L (12.0-15.0) g/dL Hct 38.3 (37.0-47.0) % MCV 81.7 (80-100) fl MCH 24.9 L (26-34) pg MCHC 30.5 L (32-36) g/dl RDW 16.0 H (11.5-14.5) % Plt Count 449 H (150-375) k/mm3 MPV 9.7 (7.4-10.4) fl Immature Gran % (Auto) 0.3 (0-0.5) % Neut % (Auto) 42.0 L (45.5-73.1) % Lymph % (Auto) 41.4 (18.3-44.2) % [place] % (Auto) 10.3 H (2.6-8.5) % Eos % (Auto) 5.2 H (0-4.4) % Baso % (Auto) 0.8 (0.2-1.2) % Lymph # (Auto) 3.29 H (0.9-3.2) K/mm3 [place] # (Auto) 0.8 H (0.1-0.6
[2022-05-19] MEDS: LORazepam INJ (*CRX) 2 MG/ML VIAL 1 MG IM (20:42)
[2022-05-19] MEDS: AMOXICILLIN/CLAVULANATE K 875-125 MG TAB 1 TABLET PO (20:42)
[2022-05-19 21:00] VITALS: BP 132/74; PULSE 90; RESP 16; O2SAT 98
== END 2022-05-19 21:01 | disposition home or self-care (01) ==
PROVIDERS: Emergency Provider Nurse Practitioner Family; PCP Nurse Practitioner
DX: N39.0 Urinary tract infection, site not specified (principal); M54.50 Low back pain, unspecified
CPT/HCPCS: 36415; 80053; 81001; 83605; 85025; 96372; 99283; A9270; J2060

== ENCOUNTER 2022-06-08 14:33 | Emergency (ER) | payer OTHER, SELFPAY ==
--- NOTE | ~2022-06-08 | XR_ITS ---
EXAMINATION: XR foot RT min 3V DATE: 06/08/2022 15:07 INDICATION: Right foot pain TECHNIQUE: Dorsoplantar, lateral, and 2 oblique views of the right foot were obtained. COMPARISON: 12/29/2021 FINDINGS: There are surgical changes of the talus and navicular. There is an age-indeterminate fractu re of the screw coursing from medial to lateral and the talus. No acute fracture is identified. The s oft tissues are unremarkable. IMPRESSION: 1. No acute osseous abnormality. 2. Changes of talar reconstruction with age indeterminate fracture one of the talar stabilization scr ews. Reviewed, dictated and finalized at location A. IMPRESSION: 1. No acute osseous abnormality. 2. Changes of talar reconstruction with age indeterminate fracture one of the t alar stabilization screws.
[2022-06-08 14:40] VITALS: BP 132/86; PULSE 92; RESP 16; TEMP 36.5; O2SAT 99
[2022-06-08 14:58] LABS: Appearance Urine Clear (Clear); Bilirubin Urine Negative (Negative); Blood Urine Negative (Negative); Color Urine Yellow (Yellow); Glucose Urine UA Negative (Negative); Ketones Urine Negative (Negative); Leukocyte Esterase Ur Negative LEU/UL (Negative); Nitrate Urine Negative (Negative); Protein Urine Negative (Negative); Specific Grav Ur >= 1.030 (1.001-1.035); Urobilinogen Urine 0.2 mg/dL (<2.0); pH Urine 5.5 (5.0-9.0)
[2022-06-08 15:08] LABS: Add Urine Microscopic? NO
--- NOTE | 2022-06-08 15:43 | ED.EXTPRO ---
HPI - Extremity Problem General Chief complaint: Extremity Problem,Nontraumatic Stated complaint: right foot and leg pain Time Seen by Provider: 06/08/22 14:57 History of Present Illness HPI Narrative: 31-year-old female history of right foot/ankle ORIF repair at [facility]. Patient states that she was at work earlier today when her foot twisted. Patient's been experiencing pain over the surgical site. States pain is worse when she attempts to ambulate or when pressure is applied. Related Data Home Medications Medication Instructions Recorded Confirmed bupropion HCl 100 mg tablet,12 hr 100 mg PO DAILY 04/16/21 12/13/21 sustained-release escitalopram oxalate 10 mg tablet 10 mg PO DAILY 04/16/21 12/13/21 quetiapine 300 mg tablet 300 mg PO DAILY 05/29/21 12/13/21 pregabalin 75 mg capsule 75 mg PO BID 12/13/21 12/13/21 Allergies Allergy/AdvReac Type Severity Reaction Status Date / Time No Known Allergies Allergy Verified 05/16/22 11:29 Review of Systems Review of Systems: CONSTITUTIONAL: Denies fever, chills, or sweats. EYES: Denies visual changes, redness, or discharge. ENT: Denies rhinorrhea, congestion, sore throat, or otalgia. CARDIOVASCULAR: Denies chest pain, palpitations, or edema. RESPIRATORY: Denies cough or dyspnea. GASTROINTESTINAL: Denies abdominal pain, nausea, vomiting, or diarrhea. GENITOURINARY: Denies dysuria or hematuria. SKIN: Denies rash or itching. MUSCULOSKELETAL: Right foot pain NEUROLOGIC: Denies headache, numbness, dizziness, or weakness. PSYCHIATRIC: Denies anxiety or depression. [facility] Social History Social History Gender identity (if verbalized by the patient): Female Exam Narrative: GENERAL: Well-appearing, well-nourished, no physical limitations, and in no acute distress. HEAD: Normocephalic, atraumatic. EYES: Conjunctivae normal, PERRLA and EOMI. CHEST: Clear to auscultation. No respiratory distress. No wheezes rales or rhonchi. No tenderness. HEART: Regular rate and rhythm. No murmur heard. Normal peripheral pulses. EXTREMITIES: Right foot: Surgical scars present on the medial and lateral sides. Tenderness with no soft tissue swelling or ecchymosis to the anterior talus. Range of motion is limited due to pain. Neurovascular is intact SKIN: Warm, dry, no rash. No noted wounds NEURO: No focal deficits. Alert and oriented x3. MAEW. CN's II-XI intact bilaterally, antalgic gait PSYCH: Cooperative. Normal mood and affect. Course Vital Signs Vital signs: Vital Signs Temperature 36.5 C 06/08/22 14:40 Pulse Rate 92 06/08/22 14:40 Respiratory Rate 16 06/08/22 14:40 Blood Pressure 132/86 06/08/22 14:40 Pulse Oximetry 99 06/08/22 14:40 Temperature 36.5 C 06/08/22 14:40 Pulse Rate 92 06/08/22 14:40 Respiratory Rate 16 06/08/22 14:40 Blood Pressure 132/86 06/08/22 14:40 Pulse Oximetry 99 06/08/22 14:40 MDM - Extremity (Nontraumatic) Lab Data Labs: Lab Results 06/08/22 Range/Units 14:50 Urine Color Yellow (Yellow) Urine Appearance Clear (Clear) Urine pH 5.5 (5.0-9.0) Ur Specific [place] >= 1.030 (1.001-1.035) Urine Protein Negative (Negative) mg/dL Urine Glucose (UA) Negative (Negative) mg/dL Urine Ketones Negative (Negative) mg/dL Ur Blood (Man) Negative (Negative) Urine Nitrate Negative (Negative) Urine Bilirubin Negative (Negative) Urine Urobilinogen 0.2 (<2.0) mg/dL Leukocyte Esterase Rfl Negative (Negative) NAVEED/UL Imaging Data Radiologist's impression: Impressions Foot X-Ray 06/08/22 15:08 IMPRESSION: 1. No acute osseous abnormality. 2. Changes of talar reconstruction with age indeterminate fracture one of the talar stabilization screws. Discharge Plan Discharge Clinical Impression: Talar fracture Patient Disposition: Home, Self-Care Condition: Stable Instructions: Antib
== END 2022-06-08 16:09 | disposition home or self-care (01) ==
PROVIDERS: Emergency Medicine; Emergency Provider Nurse Practitioner Family; PCP Nurse Practitioner
DX: S92.101D Unspecified fracture of right talus, subsequent encounter for fracture with routine healing (principal); X58.XXXD Exposure to other specified factors, subsequent encounter
CPT/HCPCS: 73630; 81003; 99283

== ENCOUNTER 2022-06-11 10:50 | Emergency (ER) | payer OTHER, SELFPAY ==
[2022-06-11 11:03] VITALS: BP 114/80; PULSE 90; RESP 18; TEMP 36.3; O2SAT 98
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
[2022-06-11] MEDS: KETOROLAC (*BKC) 60 MG/2 ML VIAL IM (11:49)
== END 2022-06-11 13:18 | disposition home or self-care (01) ==
PROVIDERS: Emergency Provider Emergency Medicine; PCP Nurse Practitioner
DX: S92.101A Unspecified fracture of right talus, initial encounter for closed fracture (principal); T84.9XXA Unspecified complication of internal orthopedic prosthetic device, implant and graft, initial encounter; F41.9 Anxiety disorder, unspecified; V89.2XXA Person injured in unspecified motor-vehicle accident, traffic, initial encounter
CPT/HCPCS: 29515; 96372; 99284; J1885

== ENCOUNTER 2022-08-18 07:04 | Emergency (ER) | payer OTHER, SELFPAY ==
--- NOTE | ~2022-08-18 | CT_ITS ---
EXAMINATION: CT facial bones w con DATE: 08/18/2022 08:58 INDICATION: Dental infection. TECHNIQUE: Computed tomography (CT) of the facial bones was performed with 100 cc Omnipaque 350 intra venous contrast. The dose-length product was 521.79 mGy-cm. COMPARISON: None FINDINGS: There is mild soft tissue swelling anterior to the maxilla. There are multiple odontogenic caries. No discrete fluid collection to suggest abscess. There are multiple enlarged submandibular ly mph nodes, likely reactive. The coastal space and parapharyngeal spaces are symmetric. There are ayana tional enlarged lymph nodes at the angle of mandible. No significant vascular abnormality. No discret e walled off enhancing fluid collection to suggest abscess. The intracranial structures are unremarka ble. There is mild mucosal thickening of the maxillary and ethmoid sinuses. No significant vascular a bnormality. IMPRESSION: 1. Multiple odontogenic caries with soft tissue swelling anterior to the maxilla and soft tissue infi ltration extending along the left lateral margin of the face. No discrete walled off fluid collection to suggest abscess. 2: Lymphadenopathy, most likely reactive. 3: Mild sinus disease. Reviewed, dictated and finalized at location A. IMPRESSION: 1. Multiple odontogenic caries with soft tissue swelling anterior to the maxill a and soft tissue infiltration extending along the left lateral margin of the f colin. No discrete walled off fluid collection to suggest abscess. 2: Lymphadenopathy, most likely reactive. 3: Mild sinus disease.
[2022-08-18 07:07] VITALS: BP 133/98; PULSE 117; RESP 20; TEMP 36.6; O2SAT 100
--- NOTE | 2022-08-18 07:49 | ED.GENADULT ---
HPI - General Adult General Chief complaint: Dental/Oral Stated complaint: Left sided facial swelling, mouth pain Time Seen by Provider: 08/18/22 07:21 History of Present Illness HPI narrative: This is a 31-year-old female presenting to ED with chief complaint of dental pain and facial swelling. Patient says she was having some dental pain when she went to bed last night. However when she woke up this morning she had significant swelling to the left side of her face. She is having difficulty opening her mouth. She does not have a sensation of throat closure or difficulty breathing. 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 Patient has a dental appointment in October. Patient denies systemic signs of illness such as fever, chills, nausea vomiting or diarrhea. Related Data Home Medications Medication Instructions Recorded Confirmed bupropion HCl 100 mg tablet,12 hr 100 mg PO DAILY 04/16/21 12/13/21 sustained-release escitalopram oxalate 10 mg tablet 10 mg PO DAILY 04/16/21 12/13/21 quetiapine 300 mg tablet 300 mg PO DAILY 05/29/21 12/13/21 pregabalin 75 mg capsule 75 mg PO BID 12/13/21 12/13/21 Allergies Allergy/AdvReac Type Severity Reaction Status Date / Time No Known Allergies Allergy Verified 08/18/22 07:15 Review of Systems Review of Systems: CONSTITUTIONAL: Denies night sweats. EYES: No eye pain ENT: Denies rhinorrhea CARDIOVASCULAR: Denies palpitations RESPIRATORY: Denies hemoptysis GASTROINTESTINAL: Denies hematemesis GENITOURINARY: Denies hematuria. SKIN: Denies rash MUSCULOSKELETAL: Denies myalgia. NEUROLOGIC: Denies weakness. PSYCHIATRIC: Denies delusions PMFSH Past Medical History Medical History Opioid abuse, uncomplicated Other specified anxiety disorders Surgical History Surgical History History of ankle surgery Social History Social History Smoking status: Current every day smoker Alcohol intake: former Substance use: former Gender identity (if verbalized by the patient): Female Exam Narrative: APPEARANCE: Patient appears uncomfortable Head: Patient has significant swelling to the left side of her face. essentially all of the teeth on her upper left side have rotted away.. The stubs that are left are tender to percussion. To the generalizedswelling I am unable to feel any area fluctuance. EYES: PERRLA/EOMI, NOSE: Normal no drainage NECK: Supple, Trachea midline RESPIRATORY: CTAB, No increased work of breathing. CARDIOVASCULAR: S1S2 appreciated ABDOMINAL: Soft, nontender, nondistended, MUSCULOSKELETAl: No obvious deformities NEURO: Alert. Moving 4/4 extremities SKIN:: Warm, dry. Normal color PSYCHIATRIC: Normal affect Course Vital Signs Vital signs: Vital Signs Temperature 97.8 F 08/18/22 07:07 Pulse Rate 117 H 08/18/22 07:07 Respiratory Rate 20 08/18/22 07:07 Blood Pressure 133/98 H 08/18/22 07:07 Pulse Oximetry 100 08/18/22 07:07 Oxygen Delivery Room Air 08/18/22 07:07 Temperature 97.8 F 08/18/22 07:07 Pulse Rate 117 H 08/18/22 07:07 Respiratory Rate 20 08/18/22 07:07 Blood Pressure 133/98 H 08/18/22 07:07 Pulse Oximetry 100 08/18/22 07:07 Oxygen Delivery Room Air 08/18/22 07:07 Medical Decision Making MDM Narrative Medical decision making narrative: This is a 31-year-old female presenting ED a chief complaint of dental pain and facial swelling. Patient has significant swelling to the left side of her face. I am unable to find a focal point fluctuance but I am concerned for abscess. CT of the face has been ordered. She will be given IV fluids and IV antibiotics. CT of the face did not reveal an abscess and it showed diffuse soft tissue swelling. Lab work was within normal limits. Upon re-evaluation patient's
[2022-08-18 07:55] LABS: Basophils Absolute Auto 0.1 K/mm3 (0.0-0.1); Basophils Percent Auto 0.8 % (0.2-1.2); Eosinophils Absolute Auto 0.4 K/mm3 (0-0.3); Eosinophils Percent Auto 3.9 % (0-4.4); Hematocrit 34.4 % (37.0-47.0); Hemoglobin 10.9 g/dL (12.0-15.0); Immature Granulocyte Absolute 0.04 K/mm3 (0.00-0.031); Immature Granulocyte Percent A 0.4 % (0-0.5); Lymphocytes Absolute Auto 2.35 K/mm3 (0.9-3.2); Lymphocytes Percent Auto 20.8 % (18.3-44.2); Mean Corpuscular HGB Conc 31.7 g/dl (32-36); Mean Corpuscular Hemoglobin 26.1 pg (26-34); Mean Corpuscular Volume 82.3 fl (80-100); Mean Platelet Volume 9.7 fl (7.4-10.4); Monocytes Absolute Auto 1.3 K/mm3 (0.1-0.6); Monocytes Percent Auto 11.8 % (2.6-8.5); Neutrophils Percent Auto 62.3 % (45.5-73.1); Platelet Count Result 401 k/mm3 (150-375); Red Blood Count 4.18 M/mm3 (4.2-5.4); Red Cell Distribution Width 16.8 % (11.5-14.5); White Blood Count 11.3 K/mm3 (4.5-10.0)
[2022-08-18] MEDS: HYDROmorphone HCL INJ (*CRX) 1 MG/ML SYR 0.5 MG IV PUSH (07:55)
[2022-08-18] MEDS: SODIUM CHLORIDE 0.9% IV 1,000 ML 999 ML IV CONT (07:55)
[2022-08-18] MEDS: AMPICILLIN SULB 3 GM/NS 100 ML 3 GM/100 ML VIAL IVPB (08:03)
[2022-08-18 08:08] LABS: Glucose Point of Care 108 mg/dl (65-105)
[2022-08-18 08:10] LABS: Anion Gap 11 mmol/L (8-16); Blood Urea Nitrogen 8 mg/dL (7-17); Calcium 8.7 mg/dL (8.4-10.2); Carbon Dioxide 27 mmol/L (22-30); Chloride 102 mmol/L (98-107); Estimated Glomerular Filt Rate > 60; Glucose 99 mg/dL (65-110); Magnesium 1.6 mg/dL (1.6-2.3); Potassium 3.6 mmol/L (3.4-5.0); Sodium 140 mmol/L (137-145)
[2022-08-18] MEDS: LORazepam (*CRX) 1 MG TABLET PO (08:39)
[2022-08-18 09:41] VITALS: BP 145/98; PULSE 99; RESP 18; O2SAT 100
== END 2022-08-18 09:52 | disposition home or self-care (01) ==
PROVIDERS: Emergency Provider Emergency Medicine; PCP Nurse Practitioner
DX: K04.7 Periapical abscess without sinus (principal); F41.8 Other specified anxiety disorders; F17.200 Nicotine dependence, unspecified, uncomplicated
CPT/HCPCS: 36415; 70487; 80048; 81025; 82948; 83735; 85025; 96361; 96365; 96375; 99284; A9270; J0295; J1170; J7030; Q9967

== ENCOUNTER 2022-08-18 22:05 | Emergency (ER) | payer OTHER, SELFPAY ==
[2022-08-18 22:07] VITALS: BP 119/70; PULSE 108; RESP 16; TEMP 37; O2SAT 98
--- NOTE | 2022-08-18 23:36 | PC.NURSE ---
Pt approached triage desk, stating Im just going to go home . Pt advised to come back to ED for any additional concerns. Pt ambulated out of ED, accompanied by family, in no obvious distress.
== END 2022-08-18 23:40 | disposition left against medical advice (07) ==
PROVIDERS: PCP Nurse Practitioner
DX: Z53.21 Procedure and treatment not carried out due to patient leaving prior to being seen by health care provider (principal)
CPT/HCPCS: 99199

== ENCOUNTER 2022-08-20 10:46 | Emergency (ER) | payer OTHER, SELFPAY ==
--- NOTE | 2022-08-20 10:54 | PC.NURSE ---
pt outside smoking
[2022-08-20 11:10] VITALS: BP 121/72; PULSE 109; RESP 18; TEMP 36.6; O2SAT 100
--- NOTE | 2022-08-20 12:09 | ED.GENADULT ---
HPI - General Adult General Chief complaint: Dental/Oral Stated complaint: blisters in mouth Time Seen by Provider: 08/20/22 11:15 History of Present Illness HPI narrative: This is a 31-year-old female with bad dentition presenting ED with dental infection. She was seen [address] days [address] and a [address] scan did not show any evidence of abscess. Today she has a pair of apical abscess over the front left incisor. She has taken all of her pain medication. She has been taking antibiotics as directed. She has had some improvement in the swelling of her face but is still having severe pain. Related Data Home Medications Medication Instructions Recorded Confirmed bupropion HCl 100 mg tablet,12 hr 100 mg PO DAILY 04/16/21 12/13/21 sustained-release escitalopram oxalate 10 mg tablet 10 mg PO DAILY 04/16/21 12/13/21 quetiapine 300 mg tablet 300 mg PO DAILY 05/29/21 12/13/21 pregabalin 75 mg capsule 75 mg PO BID 12/13/21 12/13/21 Allergies Allergy/AdvReac Type Severity Reaction Status Date / Time No Known Allergies Allergy Verified 08/18/22 22:07 Review of Systems Review of Systems: CONSTITUTIONAL: Denies night sweats. EYES: No eye pain ENT: Denies rhinorrhea CARDIOVASCULAR: Denies palpitations RESPIRATORY: Denies hemoptysis GASTROINTESTINAL: Denies hematemesis GENITOURINARY: Denies hematuria. SKIN: Denies rash MUSCULOSKELETAL: Denies myalgia. NEUROLOGIC: Denies weakness. PSYCHIATRIC: Denies delusions PMFSH Past Medical History Medical History Opioid abuse, uncomplicated Other specified anxiety disorders Surgical History Surgical History History of ankle surgery Social History Social History Smoking status: Current every day smoker Alcohol intake: former Substance use: former Gender identity (if verbalized by the patient): Female Exam Narrative: APPEARANCE: No apparent distress. Head atraumatic. EYES: PERRLA/EOMI, Patient has swelling around the left eye which is improving since 2 days ago. NOSE: Normal no drainage Mouth: Patient has numerous rotten teeth that are rotted below the gum line. She has a periapical abscess over the 1st upper left incisor. NECK: Supple, Trachea midline RESPIRATORY: CTAB, No increased work of breathing. CARDIOVASCULAR: S1S2 appreciated ABDOMINAL: Soft, nontender, nondistended, MUSCULOSKELETAl: No obvious deformities NEURO: Alert. Moving 4/4 extremities SKIN:: Warm, dry. Normal color PSYCHIATRIC: Normal affect Course Vital Signs Vital signs: Vital Signs Temperature 98 F 08/20/22 11:10 Pulse Rate 109 H 08/20/22 11:10 Respiratory Rate 18 08/20/22 11:10 Blood Pressure 121/72 08/20/22 11:10 Pulse Oximetry 100 08/20/22 11:10 Oxygen Delivery Room Air 08/20/22 11:10 Temperature 98 F 08/20/22 11:10 Pulse Rate 109 H 08/20/22 11:10 Respiratory Rate 18 08/20/22 11:10 Blood Pressure 121/72 08/20/22 11:10 Pulse Oximetry 100 08/20/22 11:10 Oxygen Delivery Room Air 08/20/22 11:10 Procedures Abscess I/D oral: Side (if applicable): left Local Anesthetic: lidocaine 2% and with epi Technique: incised with #11 blade Amount of fluid expressed (mL): 3 Irrigation: No I&D Results: Pus Medical Decision Making MDM Narrative Medical decision making narrative: This is a 31-year-old female with poor dentition coming to ED with a dental abscess. An I&D was performed the patient noted immediate relief. I will continue to treat the patient with her course of Augmentin. Outside of the abscess the swelling of her face appears to be improving. I encouraged her to continue seeking dental care. The patient was given a another script for [place]. I have informed the patient that I will not be providing her with narcotics past this visit. She
[2022-08-20] MEDS: HYDROcodone/acetaminophen (*CRX) 5-325 MG TABLET 2 TAB PO (12:20)
[2022-08-20] MEDS: LIDO 2%/EPINEPHRINE 1:100,000 50 ML VIAL 10 ML INFILTRATE (12:24)
== END 2022-08-20 13:42 | disposition home or self-care (01) ==
PROVIDERS: Emergency Provider Emergency Medicine; PCP Nurse Practitioner
DX: K04.7 Periapical abscess without sinus (principal); K02.9 Dental caries, unspecified; F41.8 Other specified anxiety disorders; F17.200 Nicotine dependence, unspecified, uncomplicated
CPT/HCPCS: 41800; 99283; A9270

== ENCOUNTER 2023-02-15 17:01 | Emergency (ER) | payer OTHER, SELFPAY ==
[2023-02-15 17:11] VITALS: BP 139/75; PULSE 119; RESP 16; TEMP 36.7; O2SAT 100
[2023-02-15 17:32] LABS: Basophils Percent Auto 0.4 % (0.2-1.2); Eosinophils Percent Auto 0.4 % (0-4.4); Hematocrit 36.4 % (37.0-47.0); Hemoglobin 11.6 g/dL (12.0-15.0); Immature Granulocyte Absolute 0.03 K/mm3 (0.00-0.031); Immature Granulocyte Percent A 0.3 % (0-0.5); Lymphocytes Absolute Auto 2.36 K/mm3 (0.9-3.2); Lymphocytes Percent Auto 23.7 % (18.3-44.2); Mean Corpuscular HGB Conc 31.9 g/dl (32-36); Mean Corpuscular Volume 72.2 fl (80-100); Mean Platelet Volume 10.2 fl (7.4-10.4); Monocytes Absolute Auto 1.1 K/mm3 (0.1-0.6); Monocytes Percent Auto 10.8 % (2.6-8.5); Neutrophils Absolute Auto 6.4 K/mm3 (1.3-6.7); Neutrophils Percent Auto 64.4 % (45.5-73.1); Platelet Count Result 635 k/mm3 (150-375); Red Blood Count 5.04 M/mm3 (4.2-5.4); Red Cell Distribution Width 17.7 % (11.5-14.5)
[2023-02-15 17:40] LABS: Microcytosis 1+ (NORMAL); Ovalocytes 1+ (NORMAL); Platelet Estimate Increased (Adequate); Schistocytes None Seen (NORMAL); Stomatocytes 1+ (NORMAL)
[2023-02-15 17:58] LABS: Alanine Aminotransferase 49 U/L (6-35); Albumin Level 5.1 g/dL (3.5-5.1); Alkaline Phosphatase 115 U/L (38-126); Anion Gap 12 mmol/L (8-16); Aspartate Amino Transferase 46 U/L (14-36); Bilirubin,Total 0.7 mg/dL (0.2-1.3); Blood Urea Nitrogen 14 mg/dL (7-17); Calcium 10.1 mg/dL (8.4-10.2); Carbon Dioxide 30 mmol/L (22-30); Chloride 93 mmol/L (98-107); Estimated Glomerular Filt Rate > 60; Glucose 117 mg/dL (65-110); Lipase 115 U/L (23-300); Potassium 2.5 mmol/L (3.4-5.0); Sodium 135 mmol/L (137-145)
--- NOTE | 2023-02-15 18:13 | PC.NURSE ---
Discussed with EDP Andres patient's potassium level. Patient left department prior to being seen by ED provider. Patient was contacted and made aware of an abnormal blood result and said she would be coming back to the ER for evaluation.
== END 2023-02-15 17:37 | disposition left against medical advice (07) ==
LOC: ANHED 17:36
PROVIDERS: Emergency Provider Emergency Medicine; PCP Nurse Practitioner
DX: R11.2 Nausea with vomiting, unspecified (principal)
CPT/HCPCS: 36415; 80053; 83690; 85025; 99199

== ENCOUNTER 2023-02-15 18:59 | Emergency (ER) | payer OTHER, SELFPAY ==
[2023-02-15] VITALS (13 sets, daily range): BP systolic 122–169; BP diastolic 84–136; PULSE 83–121; RESP 12–27; TEMP 36.8; O2SAT 95–100
--- NOTE | ~2023-02-15 | CT_ITS ---
EXAMINATION: CT abdomen pelvis w con DATE: 02/15/2023 20:50 INDICATION: Right flank pain. TECHNIQUE: Computed tomography (CT) of the abdomen and pelvis was performed with 100 mL Omnipaque 350 intravenous contrast. Automated exposure control and iterative reconstruction technique were employe d. The dose-length product was 1208.14 mGy-cm. COMPARISON: CT abdomen and pelvis 05/16/2022 FINDINGS: The visualized portions of the lung bases are clear without pneumonia or pleural effusion. The heart size is normal. No pericardial effusion. There is a small sliding hiatal hernia. There is m ild intrahepatic biliary duct dilatation, likely secondary to cholecystectomy. The spleen, pancreas, adrenal glands, and kidneys are normal. There are no dilated loops of bowel. The appendix is normal. There are no pathologically enlarged lymph nodes. There is no free intraperitoneal fluid. 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 IMPRESSION: 1. Small sliding hiatal hernia. Reviewed, dictated and finalized at location E.
--- NOTE | 2023-02-15 19:04 | ECG_ITS ---
Measurements Intervals [place] Rate: 108 P: NH: 0 QRS: 76 QRSD: 86 T: 58 QT: 438 QTc: 588 Interpretive Statements SINUS TACHYCARDIA NONSPECIFIC ST AND T WAVE ABNORMALITY NO PREVIOUS ECG AVAILABLE FOR COMPARISON Electronically Signed On 02-16-2023 12:07:48 CDT by Esau Jade M.D.
[2023-02-15] MEDS: SODIUM CHLORIDE 0.9% IV 2,000 ML 999 ML IV CONT (19:44)
[2023-02-15] MEDS: PANTOPRAZOLE SODIUM IV 40 MG VIAL IV PUSH (19:45)
[2023-02-15] MEDS: ONDANSETRON INJ 4 MG/2 ML VIAL IV PUSH (19:45)
[2023-02-15] MEDS: MORPHINE SULFATE (*CRX) 4 MG/ML INJ IV PUSH (19:45)
--- NOTE | 2023-02-15 19:48 | ED.ABDPAIN ---
HPI - Abdominal Pain General Chief Complaint: Abdominal Pain Stated Complaint: abd pain Time Seen by Provider: 02/15/23 19:17 History of Present Illness HPI narrative: This is a 32-year-old female with past history of anxiety, who presents emergency department complaining of diffuse abdominal pain for the past 3 days. She describes the pain as sharp and cramping, rated 10/10, throughout the abdomen and low back. This is associated with nausea and vomiting. She denies any known trauma or other injury to the abdomen. Related Data Home Medications Medication Instructions Recorded Confirmed bupropion HCl 100 mg tablet,12 hr 100 mg PO DAILY 04/16/21 12/13/21 sustained-release escitalopram oxalate 10 mg tablet 10 mg PO DAILY 04/16/21 12/13/21 quetiapine 300 mg tablet 300 mg PO DAILY 05/29/21 12/13/21 pregabalin 75 mg capsule 75 mg PO BID 12/13/21 12/13/21 Allergies Allergy/AdvReac Type Severity Reaction Status Date / Time No Known Allergies Allergy Verified 02/15/23 18:59 Review of Systems Review of Systems: CONSTITUTIONAL: Denies fever, chills, or sweats. CARDIOVASCULAR: Denies chest pain, palpitations, or edema. RESPIRATORY: Denies cough or dyspnea. GASTROINTESTINAL: Diffuse abdominal pain, nausea and vomiting denies or diarrhea. GENITOURINARY: Denies dysuria or hematuria. SKIN: Denies rash or itching. MUSCULOSKELETAL: Bilateral low back pain denies joint pain, or myalgia. NEUROLOGIC: Denies headache, numbness, dizziness, or weakness. PSYCHIATRIC: Anxiety denies depression. PMFSH Past Medical History Medical History (Updated 02/16/23 @ 00:00 by Background Daemon) Dental caries Opioid abuse, uncomplicated Other specified anxiety disorders Surgical History Surgical History History of ankle surgery Social History Social History Smoking status: Current every day smoker Alcohol intake: former Substance use: former Gender identity (if verbalized by the patient): Female Exam Narrative: GENERAL: Well-developed, well-nourished, very anxious appearing, becomes tearful during evaluation HEAD: Normocephalic, atraumatic. EYES: PERRLA and EOMI. ENT: Multiple dental caries nares clear, no rhinorrhea or epistaxis. Mucous membranes moist. Oropharynx without tonsillar hypertrophy exudate or other lesions. NECK: Supple. No adenopathy or masses. No carotid bruits or JVD CHEST: Clear to auscultation. No respiratory distress. No wheezes rales or rhonchi HEART: Tachycardic with regular rhythm. No murmur heard. Normal peripheral pulses. ABDOMEN: Soft, diffuse tenderness to palpation throughout the abdomen, greater in the left upper quadrant, nondistended, normal active bowel sounds. Bilateral CVA tenderness to palpation EXTREMITIES: Normal range of motion. No edema. SKIN: Warm, dry, no rash. NEURO: No focal deficits. Alert and oriented x3. PSYCH: Normal mood and affect. Course Course Emergency Course: 22:30 - CBC demonstrates mild anemia with hemoglobin of 11.2. This appears to be the patient's baseline. CMP demonstrates hypokalemia with potassium of 2.3 but is otherwise unremarkable. test was negative. CT abdomen pelvis demonstrates a hiatal hernia but is otherwise unremarkable. On reevaluation, the patient states her pain is improved though not resolved. UA pending. Pending urinalysis, will discharge with recommendation for primary care follow-up and potassium supplementation. 23:08 - Urinalysis consistent with UTI. I suspect patient may have early pyelonephritis. Will give a first dose of antibiotics and discharged with antibiotics. Discussed return and emergent precautions including signs/symptoms of acute abdomen. The patient voiced understanding and is comfortable with the plan. All questions answered to her satisfaction. Vital Signs Vital signs: Vital Signs T
[2023-02-15 19:56] LABS: Basophils Percent Auto 0.4 % (0.2-1.2); Eosinophils Percent Auto 0.4 % (0-4.4); Hematocrit 35.8 % (37.0-47.0); Hemoglobin 11.2 g/dL (12.0-15.0); Immature Granulocyte Absolute 0.04 K/mm3 (0.00-0.031); Immature Granulocyte Percent A 0.4 % (0-0.5); Lymphocytes Percent Auto 23.6 % (18.3-44.2); Mean Corpuscular HGB Conc 31.3 g/dl (32-36); Mean Corpuscular Hemoglobin 22.9 pg (26-34); Mean Corpuscular Volume 73.1 fl (80-100); Mean Platelet Volume 10.4 fl (7.4-10.4); Monocytes Absolute Auto 1.1 K/mm3 (0.1-0.6); Monocytes Percent Auto 11.9 % (2.6-8.5); Neutrophils Absolute Auto 5.6 K/mm3 (1.3-6.7); Neutrophils Percent Auto 63.3 % (45.5-73.1); Platelet Count Result 576 k/mm3 (150-375); Red Cell Distribution Width 17.7 % (11.5-14.5); White Blood Count 8.9 K/mm3 (4.5-10.0)
[2023-02-15 20:04] LABS: Platelet Estimate Increased (Adequate)
[2023-02-15 20:05] LABS: Microcytosis 1+ (NORMAL); Ovalocytes 1+ (NORMAL); Schistocytes None Seen (NORMAL)
[2023-02-15 20:21] LABS: Alanine Aminotransferase 51 U/L (6-35); Albumin Level 4.9 g/dL (3.5-5.1); Alkaline Phosphatase 108 U/L (38-126); Anion Gap 11 mmol/L (8-16); Aspartate Amino Transferase 45 U/L (14-36); Bilirubin,Total 0.7 mg/dL (0.2-1.3); Blood Urea Nitrogen 14 mg/dL (7-17); Carbon Dioxide 32 mmol/L (22-30); Chloride 91 mmol/L (98-107); Estimated Glomerular Filt Rate > 60; Glucose 116 mg/dL (65-110); Lipase 118 U/L (23-300); Potassium 2.3 mmol/L (3.4-5.0); Sodium 134 mmol/L (137-145)
--- NOTE | 2023-02-15 20:38 | PC.NURSE ---
Pt taken to CAT scan
[2023-02-15] MEDS: POTASSIUM CHLORIDE 20 MEQ PACKET (FOR LIQUID) 40 MEQ PO (20:59)
[2023-02-15] MEDS: KCL 20 MEQ/SW 100 ML 100 ML 50 MEQ IVPB (21:00)
--- NOTE | 2023-02-15 22:05 | PC.NURSE ---
Patient called this nurse into room to state she is in pain. Patient informed she has dicyclomine ordered. Patient states I don't want that, that does not work for me, can I have more morphine? Patient informed that the ERP ordered the dicyclomine for her pain, but I will speak to the physician. ERP notified.
[2023-02-15] MEDS: KETOROLAC 30 MG/ML VIAL (*BKC) IV PUSH (22:22)
[2023-02-15 22:54] LABS: Appearance Urine Turbid (Clear); Bacteria Urine 4+ /hpf; Bilirubin Urine 1+ (Negative); Blood Urine Negative (Negative); Color Urine Dark Yellow (Yellow); Glucose Urine UA Negative (Negative); Ketones Urine 3+ mg/dL (Negative); Leukocyte Esterase Ur 3+ LEU/UL (Negative); Mucus Urine Present /lpf; Nitrate Urine Negative (Negative); Non Pathogenic Casts >20; Protein Urine 2+ mg/dL (Negative); RBC Urine 0-2 /hpf (0-2); Specific Grav Ur 1.026 (1.001-1.035); Squamous Epithelial Cell Urine Many /hpf (Few); WBC Urine 51-100 /hpf; pH Urine >=9.0 (5.0-9.0)
[2023-02-15 22:57] LABS: Add Urine Microscopic? YES
== END 2023-02-15 23:35 | disposition home or self-care (01) ==
PROVIDERS: Emergency Provider Preventive Medicine Aerospace Medicine; PCP Nurse Practitioner
DX: N12 Tubulo-interstitial nephritis, not specified as acute or chronic (principal); F41.8 Other specified anxiety disorders; F17.200 Nicotine dependence, unspecified, uncomplicated; K44.9 Diaphragmatic hernia without obstruction or gangrene
CPT/HCPCS: 36415; 74177; 80053; 81001; 81025; 83605; 83690; 85025; 87077; 87086; 87088; 93005; 96361; 96365; 96366; 96367; 96375; 99199; 99284; A9270; C9113; J0696; J1885; J2270; J2405; J3480; J7030; Q9967

== ENCOUNTER 2023-07-07 13:46 | Emergency (ER) | payer OTHER, SELFPAY ==
--- NOTE | ~2023-07-07 | XR_ITS ---
EXAMINATION: XR chest 2V DATE: 07/07/2023 15:50 INDICATION: Shortness of breath and cough TECHNIQUE: frontal and lateral views of the chest were obtained. COMPARISON: Chest radiograph dated 12/13/[address] dated 12/04/2015 and 02/15/2023 FINDINGS: The lungs remain clear with no focal airspace opacities, pulmonary edema, pleural effusion or pneumot horax. The cardiomediastinal silhouette is normal. Chronic expansile lesion at the anterior left agustina nth rib with central chondroid matrix on recent CT of the abdomen and pelvis consistent with an encho ndroma. IMPRESSION: 1. No acute cardiopulmonary disease. Reviewed, dictated and finalized at location A.
[2023-07-07 13:47] VITALS: BP 125/86; PULSE 90; RESP 18; TEMP 37.1; O2SAT 100
[2023-07-07 14:05] LABS: Basophils Absolute Auto 0.1 K/mm3 (0.0-0.1); Basophils Percent Auto 1.4 % (0.2-1.2); Eosinophils Absolute Auto 0.3 K/mm3 (0-0.3); Eosinophils Percent Auto 4.2 % (0-4.4); Hematocrit 34.6 % (37.0-47.0); Hemoglobin 10.8 g/dL (12.0-15.0); Immature Granulocyte Absolute 0.02 K/mm3 (0.00-0.031); Immature Granulocyte Percent A 0.3 % (0-0.5); Lymphocytes Absolute Auto 2.43 K/mm3 (0.9-3.2); Lymphocytes Percent Auto 33.9 % (18.3-44.2); Mean Corpuscular HGB Conc 31.2 g/dl (32-36); Mean Corpuscular Hemoglobin 24.2 pg (26-34); Mean Corpuscular Volume 77.6 fl (80-100); Mean Platelet Volume 9.9 fl (7.4-10.4); Monocytes Absolute Auto 0.8 K/mm3 (0.1-0.6); Monocytes Percent Auto 11.3 % (2.6-8.5); Neutrophils Absolute Auto 3.5 K/mm3 (1.3-6.7); Neutrophils Percent Auto 48.9 % (45.5-73.1); Platelet Count Result 411 k/mm3 (150-375); Red Blood Count 4.46 M/mm3 (4.2-5.4); Red Cell Distribution Width 17.1 % (11.5-14.5); White Blood Count 7.2 K/mm3 (4.5-10.0)
[2023-07-07 14:15] LABS: Alanine Aminotransferase 56 U/L (6-35); Albumin Level 4.6 g/dL (3.5-5.1); Alkaline Phosphatase 69 U/L (38-126); Anion Gap 8 mmol/L (8-16); Aspartate Amino Transferase 49 U/L (14-36); Bilirubin,Total 0.4 mg/dL (0.2-1.3); Blood Urea Nitrogen 10 mg/dL (7-17); Calcium 9.5 mg/dL (8.4-10.2); Carbon Dioxide 29 mmol/L (22-30); Chloride 100 mmol/L (98-107); Estimated Glomerular Filt Rate > 60; Glucose 94 mg/dL (65-110); Lipase 81 U/L (23-300); Potassium 3.8 mmol/L (3.4-5.0); Sodium 137 mmol/L (137-145)
[2023-07-07 14:40] LABS: Influenza A QL RT-PCR Negative (Negative); Influenza B QL RT-PCR Negative (Negative); SARS-CoV-2 RNA PCR Negative (Negative)
[2023-07-07 14:58] LABS: Appearance Urine Clear (Clear); Bilirubin Urine Negative (Negative); Blood Urine Negative (Negative); Color Urine Yellow (Yellow); Glucose Urine UA Negative (Negative); Ketones Urine Trace mg/dL (Negative); Leukocyte Esterase Ur Negative LEU/UL (Negative); Nitrate Urine Negative (Negative); Protein Urine Negative (Negative)
[2023-07-07 15:05] LABS: Add Urine Microscopic? NO
--- NOTE | 2023-07-07 15:40 | ED.NAVMDI ---
HPI - Nausea/Vomiting/Diarrhea General Chief complaint: Nausea/Vomiting/Diarrhea Stated complaint: nausea Time Seen by Provider: 07/07/23 14:44 History of Present Illness HPI Narrative: Patient is a 32-year-old female presenting with vomiting and diarrhea. Patient states that for the last 4 days she has had persistent vomiting whenever she tries to eat. She has had numerous bouts of diarrhea associated with diffuse abdominal cramping. States that she is also nasal congestion, shortness of breath, and cough. No chest pain, headache, dysuria, hematuria, leg swelling. States that she did have a fever of 101F yesterday. Related Data Home Medications Medication Instructions Recorded Confirmed bupropion HCl 100 mg tablet,12 hr 100 mg PO DAILY 04/16/21 12/13/21 sustained-release escitalopram oxalate 10 mg tablet 10 mg PO DAILY 04/16/21 12/13/21 quetiapine 300 mg tablet 300 mg PO DAILY 05/29/21 12/13/21 pregabalin 75 mg capsule 75 mg PO BID 12/13/21 12/13/21 Allergies Allergy/AdvReac Type Severity Reaction Status Date / Time No Known Allergies Allergy Verified 02/15/23 18:59 Review of Systems Review of Systems: All systems reviewed & are unremarkable except as noted in HPI and below PMFSH Past Medical History Medical History Dental caries Opioid abuse, uncomplicated Other specified anxiety disorders Surgical History Surgical History History of ankle surgery Social History Social History Smoking status: Current every day smoker Alcohol intake: former Substance use: former Gender identity (if verbalized by the patient): Female Exam Narrative: GENERAL: Well-appearing, well-nourished, and in no acute distress. HEAD: Normocephalic, atraumatic. EYES: PERRLA and EOMI. ENT: Nares clear, no rhinorrhea or epistaxis. Mucous membranes moist. NECK: Supple. CHEST: Clear to auscultation. No respiratory distress. HEART: Regular rate and rhythm ABDOMEN: Soft, nontender, nondistended EXTREMITIES: Normal range of motion. No edema. SKIN: Warm, dry, no rash. NEURO: No focal deficits. Alert and oriented x3. PSYCH: Normal mood and affect. Course Vital Signs Vital signs: Vital Signs Temperature 98.7 F 07/07/23 13:47 Pulse Rate 90 07/07/23 13:47 Respiratory Rate 18 07/07/23 13:47 Blood Pressure 125/86 07/07/23 13:47 Pulse Oximetry 100 07/07/23 13:47 Oxygen Delivery Room Air 07/07/23 13:47 Temperature 98.7 F 07/07/23 13:47 Pulse Rate 97 07/07/23 15:55 Respiratory Rate 18 07/07/23 13:47 Blood Pressure 107/76 07/07/23 15:55 Pulse Oximetry 100 07/07/23 13:47 Oxygen Delivery Room Air 07/07/23 13:47 MDM - Nausea/Vomiting/Diarrhea MDM Narrative Medical decision making narrative: 32-year-old female presenting with several days of body aches, nausea, diarrhea. Vitals are stable. Exam unremarkable. Do not feel imaging is warranted given her reassuring exam. Blood work is unremarkable. Patient received fluids, Zofran. On reevaluation, she is sleeping comfortably. No episodes of emesis here. She feels comfortable going home which I think is reasonable. We will send in for some Zofran. Advised PCP follow-up. Appropriate return precautions given. Voiced understanding and is agreeable with plan. Discharged in stable condition. Differential Diagnosis Differential diagnosis: Likely food poisoning, gastroenteritis and dehydration Medical Records Attestation: I reviewed the patient's medical records. Lab Data Attestation: I reviewed the patient's lab results. 07/07/23 13:56 07/07/23 13:56 Labs: Lab Results 07/07/23 07/07/23 07/07/23 Range/Units 13:56 14:36 15:52 WBC 7.2 (4.5-10.0) K/mm3 RBC 4.46 (4.2-5.4) M/mm3 Hgb 10.8 L (12.0-15.0) g/dL Hc
[2023-07-07 15:53] VITALS: BP 103/73; PULSE 97
[2023-07-07 15:54] VITALS: BP 107/80; PULSE 90
[2023-07-07 15:55] VITALS: BP 107/76; PULSE 97
[2023-07-07] MEDS: ONDANSETRON INJ 4 MG/2 ML VIAL IV PUSH (16:15)
[2023-07-07] MEDS: KETOROLAC 30 MG/ML VIAL (*BKC) IV PUSH (16:15)
[2023-07-07] MEDS: SODIUM CHLORIDE 0.9% IV 1,000 ML 999 ML IV CONT (16:16)
[2023-07-07 16:52] LABS: Influenza A QL RT-PCR Negative (Negative); Influenza B QL RT-PCR Negative (Negative); RSV RNA, RT-PCR Negative (Negative); SARS-CoV-2 RNA PCR Negative (Negative)
== END 2023-07-07 18:44 | disposition home or self-care (01) ==
PROVIDERS: Emergency Provider Emergency Medicine; PCP Nurse Practitioner
DX: R11.2 Nausea with vomiting, unspecified (principal); R19.7 Diarrhea, unspecified; F41.8 Other specified anxiety disorders; F17.200 Nicotine dependence, unspecified, uncomplicated; Z20.822 Contact with and (suspected) exposure to COVID-19
CPT/HCPCS: 36415; 71046; 80053; 81003; 81025; 83690; 85025; 87636; 87637; 96361; 96374; 96375; 99284; J1885; J2405; J7030

== ENCOUNTER 2023-07-10 16:30 | Emergency (ER) | payer OTHER, SELFPAY ==
--- NOTE | 2023-07-10 17:51 | PC.NURSE ---
Pt did not answer to call for sales and marketing vice president.
== END 2023-07-10 18:06 | disposition left against medical advice (07) ==
LOC: ANHED 17:58
PROVIDERS: PCP Nurse Practitioner
DX: Z53.21 Procedure and treatment not carried out due to patient leaving prior to being seen by health care provider (principal)
CPT/HCPCS: 99199

== ENCOUNTER 2025-07-19 00:28 | Emergency (ER) | payer OTHER, SELFPAY ==
--- OUTSIDE RECORDS SUMMARY | 2025-05-09 19:00 | XMS_ITS | Continuity of Care Document ---
Author Organization [facility] Address [address] [place] [phone] Phone Care Team Providers Care Positive Printer Operator Name Role Phone Miensh MANZO, FACC, Samantha Unavailable Unavailab le Procedures Procedure Date ELECTROCARDIOGRAM REPORT Advance Directives Directive Yes / No Effective Date File Name No Information Encounters Encounter Description Practice Location Reason(s) For Visit Diagnoses Date Provider Providers Copied on Encounter [facility], [address] [place] [address], [id number], tel:[phone] [facility] ER No Information Minesh Singh. [address] [place] [address], [id number], . tel:[phone] Referring Provider: Samantha Edge, [address] [place] [address], [id number]. tel:[phone] Family History Family Member Type Diagnosis Age At Onset No Information Payers Payer name Insurance type Covered democrat ID Authoriza tion(s) [employer] [id number] Social History Type Description Quantity Date Captured Comments Sex Female Smoking Status No Information Chief Complaint And Reason For Visit No Information Reason For Referral Reason For Referral No Information History Of Present Illness Encounter Date Complaint History Of Prese nt Illness No Information Functional Status Date Functional Assessmen t No Information Instructions Date Instruction Additional Infor mation No Information Assessments Type Assessment Date No Information Patient Care Teams Name Effective Dates (start - stop) Status Members No Information
--- OUTSIDE RECORDS SUMMARY | 2025-05-09 19:00 | XMS_ITS | Continuity of Care Document ---
Author Organization [facility] Address [address] [place] [phone] Phone Care Team Providers Care Literary Writer Name Role Phone Minesh MANZO, FACC, Samantha Unavailable Unavailab le Procedures Procedure Date ELECTROCARDIOGRAM REPORT Advance Directives Directive Yes / No Effective Date File Name No Information Encounters Encounter Description Practice Location Reason(s) For Visit Diagnoses Date Provider Providers Copied on Encounter [facility], [address] [place] [address], [id number], tel:[phone] [facility] ER No Information Minesh Singh. [address] [place] [address], [id number], . tel:[phone] Referring Provider: Samantha Edge, [address] [place] [address], [id number]. tel:[phone] Family History Family Member Type Diagnosis Age At Onset No Information Payers Payer name Insurance type Covered libertarian ID Authoriza tion(s) [employer] [id number] Social History Type Description Quantity Date Captured [...]
--- NOTE | ~2025-07-19 | CT_ITS ---
CT abdomen pelvis w con Clinical History: gen abd pain . Comparison: 02/15/2023 Technique: Axial images lung bases to symphysis pubis 100 mL Omnipaque 350 Coronal, sagittal reformats CT images acquired with automatic exposure control for dose reduction DLP: 272 mGy-cm Findings: Lung bases: Clear. Visualized heart and pericardium: Unremarkable. Liver: Enlarged. Steatosis. Gallbladder: Cholecystectomy. Spleen: Unremarkable. Pancreas: Unremarkable. Adrenal glands: Unremarkable. Kidneys: Right kidney- No hydronephrosis. No renal stones. Left kidney- No hydronephrosis. No renal stones. Distal esophagus/stomach: Unremarkable. Small bowel loops: Normal caliber and wall thickness. Colon: Apparent wall thickening transverse segment but under distended. Normal RLQ appendix. Nodes: No enlarged nodes. Peritoneum: No ascites. No free air. Urinary bladder: Unremarkable. Uterus: Unremarkable. Trace pelvic free fluid. Bones: No acute bony abnormality. Soft tissues: Unremarkable. Aorta: No aneurysm or dissection. IVC: Unremarkable. Main portal vein/SMV/splenic vein: Patent. IMPRESSION: 1. Mild colitis not excluded. 2. Otherwise no acute abnormality. Reviewed, dictated and finalized at location R.
--- OUTSIDE RECORDS SUMMARY | 2025-07-19 00:30 | XMS_ITS | Encounter Summary ---
Author Organization [facility] Address [address] [place] [address] Phone Care Team Providers Care Waterproof Coating Machine Tender Name Role Phone Unknown, Notinfile Primary Care Provider Unavail able Arnulfo Brewer NP Primary Care Provider +1- [phone] Encounter Details Date Type Department Care Team (Latest Contact Info) Description 07/30/2017 Orders Only [facility] CONVERSION Scanning, Provider Social History Tobacco Use Types Packs/Day Years Used Date Smoking Tobacco: Every Day Comments Unknown Sex and Gender Information Value Date Recorded Sex Assigned at Not on file Legal Sex Female 8:52 AM CDT Gender Identity Not on file Sexual Orientation Not on file documented as of this encounter Plan of Treatment Not on file documented as of this encounter Procedures Procedure Name Priority Date/Time Associated Diagnosis Comments OBSTETRIC/GYNECOLOGY ULTRASONOGRAPHY REPORT 07/30/2017 4:59 PM CDT documented in this encounter Results * OBSTETRIC/GYNECOLOGY ULTRASONOGRAPHY REPORT (07/30/2017 4:59 PM CDT) Anatomical Region Laterality Modality Ultrasound us Provider Scanning IMG OB US PROCEDURES Final Res ult documented in this encounter Visit Diagnoses Not on filedocumented in this encounter Care Teams Waterproof Coating Machine Tender Relationship Specialty Start Date End Date Unknown, Notinfile PCP - General 03/27/17 12/28/22 Arnulfo Brewer NP [address] [facility] [address] PCP - General Pain Management 12/29/22 documented as of this encounter
--- OUTSIDE RECORDS SUMMARY | 2025-07-19 00:30 | XMS_ITS | Clinical Summary ---
Author Organization [facility] Address [address] [place] [address] Phone Care Team Providers Care Singing Messenger Name Role Phone Cristino Claire MD Primary Care Provider [phone]- [phone] Allergies No known active allergies Medications No known medications Social History Tobacco Use Types Packs/Day Years Used Date Smoking Tobacco: Every Day Cigarettes Alcohol Use Standard Drinks/Week Comments No 0 (1 standard drink = 0.6 oz pur e alcohol) Comments Unknown Sex and Gender Information Value Date Recorded Sex Assigned at Not on file Legal Sex Female 4:38 PM CDT Gender Identity Not on file Sexual Orientation Not on file Last Filed Vital Signs Vital Sign Reading Time Taken Comments Blood Pressure 111/50 01/14/2017 4:15 AM CDT Pulse 76 01/14/2017 4:45 AM CDT Temperature 36.7 C (98.1 F) 01/14/2017 3:07 AM CDT Respiratory Rate 16 01/14/2017 4:45 AM CDT Oxygen Saturation 99% 01/14/2017 4:45 AM CDT Inhaled Oxygen Concentration - - Weight 81.6 kg (180 lb) 01/14/2017 3:07 AM CDT Height 147.3 cm (4' 10) 01/14/2017 3:07 AM CDT Body Mass Index 37.62 01/14/2017 3:07 AM CDT Plan of Treatment Health Maintenance Due Date Last Done Comments Hepatitis C Virus (HCV) Screening 1990 TdaP Immunization 1990 Hepatitis B Immunization (1 of 3 - 19+ 3-dose series) 2009 Pap Smear 2011 Human Papillomavirus (HPV) Immunization (1 - 3-dose SCDM series) 2017 Cervical Cancer Screening (CCS) 2020 HPV/Cotest 2020 Influenza Immunization (#1) 2025 SARS-COV-2 Immunization ( season) 2025 Respiratory Syncytial Virus (RSV) Immunization (Adult) (1 - 1-dose 75+ series) 2065 Meningococcal Immunization (ACWY) Aged Out No longer eligible based on patient's age to complete this topic Pneumococcal Immunization Combined Aged Out No longer eligible based on patient's age to complete this topic Rotavirus Immunization Aged Out No lo nger eligible based on patient's age to complete this topic Care Teams Singing Messenger Relationship Specialty Start Date End Date Cristino Claire MD [address] [place] [address] PCP - General Family Medicine 01/14/17
--- OUTSIDE RECORDS SUMMARY | 2025-07-19 00:30 | XMS_ITS | Clinical Summary ---
Author Organization [facility] Address [address] [place] [address] Care Team Providers Care Loss Control Consultant Name Role Phone Arnulfo Brewer NP Primary Care Provider +1- [phone] Allergies No known active allergies Medications ondansetron ODT (ZOFRAN-ODT) 4 mg disintegrating tablet Take 1 tablet (4 mg total) by mouth every 8 (eight) hours as needed for nausea or vomiting 20 tablet 1 Active nitrofurantoin monohydrate (MACROBID) 100 mg capsuleIndications :Urinary Tract/Genitourinar y Infection Take 1 capsule (100 mg total) by mouth 2 (two) times a day 10 capsule 1 Active famotidine (PEPCID) 40 mg tablet Take 1 tablet (40 mg total) by mouth nightly as needed for heartburn 20 tablet 1 1 Active Surgical History Surgery Date Site/Laterality Comments SECTION Medical History Medical History Date Comments IBS (irritable bowel syndrome) Depression Seasonal allergies Social History Tobacco Use Types Packs/Day Years Used Date Smoking Tobacco: Every Day Smokeless Tobacco: Never Alcohol Use Standard Drinks/Week Comments Never 0 (1 standard drink = 0.6 oz pur e alcohol) Personal Safety Answer Date Recorded Getting School Help Needed Not on file 01/02 Comments No Sex and Gender Information Value Date Recorded Sex Assigned at Not on file Legal Sex Female 8:52 AM CDT Gender Identity Not on file Sexual Orientation Not on file Obstetrics History Last Filed Vital Signs Vital Sign Reading Time Taken Comments Blood Pressure 111/69 12/29/2022 7:35 PM NURSING RESIDENT Pulse 101 12/29/2022 7:35 PM NURSING RESIDENT Temperature 36.6 C (97.8 F) 12/29/2022 7:35 PM NURSING RESIDENT Respiratory Rate 18 12/29/2022 7:35 PM NURSING RESIDENT Oxygen Saturation 99% 12/29/2022 7:35 PM NURSING RESIDENT Inhaled Oxygen Concentration - - Weight 77.1 kg (170 lb) 02/22/2022 11:52 AM CDT Height 147.3 cm (4' 10) 02/22/2022 11:52 AM CDT Body Mass Index 35.53 02/22/2022 11:52 AM CDT Plan of Treatment Health Maintenance Due Date Last Done Comments Cervical Cancer Screening 1990 Depression Screening 1990 Varicella Vaccines (1 of 2 - 13+ 2-dose series) 2003 Hepatitis B Screening 2008 Regular Well Visit/Exam 18-64 2008 Pneumococcal vaccine <65 (1 of 2 - PCV) 2009 HPV Vaccines (1 - 3-dose SCDM series) 2017 Covid-19 Vaccine ( - 2024- season) 2025 09/07/2021, 03/16/2021, 01/12/2021 Influenza Vaccine (#1) 2025 DTaP/Tdap/Td Vaccine (3 - Td or Tdap) 12/19/202810/2018, 06/17/2017 Hepatitis C Screening Completed 03/27/2017 Procedures Procedure Name Priority Date/Time Associated Diagnosis Comments HEPATITIS C GENOTYPE Routine Gen Lab 03/27/2017 11:35 AM CDT from Last 3 Months or Most Recently Relevant to Health Maintenance Results * Hepatitis C genotype (03/27/2017 11:35 AM CDT) Pathologist [facility] HCV genotype Undetected Undetected [facility] Comment: Assay failed to detect HCV RNA. This assay is not intended for HCV RNA detection purposes. ADDITIONAL INFORMATION This test was performed using the [employer] RealTime HCV Genotype II assay ([employer] [place], [place]). Test Performed by: [facility] - [address] [address] Blood specimen (specimen) 03/27/2017 11:35 AM CDT 03/27/2017 12:55 PM CDT us Lydia Cadena MD LAB MICROBIOLOGY - GENER AL ORDERABLES Final Result Performing Organization Address City/State/[facility] Co de Phone Number [facility] Department [place] [address] from Last 3 Months or Most Recently Relevant to Health Maintenance Insurance [facility] Care Teams Loss Control Consultant Relationship Specialty Start Date End Date Arnulfo Brewer NP [address] [facility] [place] [address] PCP - General Pain Management 12/29/22
--- OUTSIDE RECORDS SUMMARY | 2025-07-19 00:30 | XMS_ITS | Encounter Summary ---
Author Organization [facility] Address [facility] [place] [address] Care Team Providers Care Automobile Painter Name Role Phone Unavailable Primary Care Provider Unavailabl e Reason for Visit * Reason Onset Date Comments MEDICATION REFILL 01/30/2022 Encounter Details Date Type Department Care Team (Late st Contact Info) Description 01/30/2022 Refill [facility] - Orthopedics [address] [place] [address], [facility] [place] [id number] Luis Enrique Friedman MD [address] [place] [address] [place] [address] MEDICATION REFILL Social History Tobacco Use Types Packs/Day Years Used Date Smoking Tobacco: Every Day Cigarettes 1 19.1 Started: 06/02/2006 Smokeless Tobacco: Never Alcohol Use Standard Drinks/Week Comments Not Currently 14 (1 standard drink = 0.6 oz pure alcohol) Patient reports last use 16 months ago (01/17/22) Comments No Sex and Gender Information Value Date Recorded Sex Assigned at Not on file Legal Sex Female 7:44 PM CDT Gender Identity Not on file Sexual Orientation Not on file documented as of this encounter Functional Status * Is person deaf or have serious hearing difficulty? Answer Date of Assessment Author No 06/07/2020 9:54 AM CDT Concepcion Madsen RN * Is person blind or have serious difficulty seeing? Answer Date of Assessment Author No 06/07/2020 9:54 AM Concepcion Kraus RN * Does person have serious difficulty walking/climbing stairs? Answer Date of Assessment Author No 06/07/2020 9:54 AM Concepcion Kraus RN * Does person have difficulty dressing/bathing? Answer Date of Assessment Author No 06/07/2020 9:54 AM Concepcion Kraus RN * Does person have difficulty doing errands alone? Answer Date of Assessment Author No 06/07/2020 9:54 AM Concepcion Kraus RN documented as of this encounter Mental Status * Does person have difficulty concentrating/remembering/making decisions? Answer Entry Date Author No 06/07/2020 9:54 AM Concepcion Kraus RN documented in this encounter Plan of Treatment Not on file documented as of this encounter Visit Diagnoses Not on filedocumented in this encounter
--- OUTSIDE RECORDS SUMMARY | 2025-07-19 00:30 | XMS_ITS | Clinical Summary ---
Author Organization [facility] Address [address] [place] [address] Care Team Providers Care Gaming Dealer Name Role Phone Unavailable Primary Care Provider Unavailabl e Source Comments [facility] [place] [facility],non-owned Affiliates and Associated Physician Practices is amultiple site organization consisting of ambulatory clinics and hospital sitesin [place], [place], [place] and [place]. This disclosure is being madepursuant to the Care Everywhere program and may not contain all information available regarding this patient. Last updated 18.[facility] [place] [facility] Allergies No known active allergies Medications * This document contains information received from the source organization and may not represent a complete record from that organization. * Be aware that medications may not be up to date on this document. Alwaysverify current medications with the patient. 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, subsequent encounter Take 1 (one) tablet by mouth every 6 hours as needed for Pain 40 tablet 05/29/2023 Active Active Problems Problem Noted Date Diagnosed Date Status post surgery 11/08/2022 Breakdown (mechanical) of ot her internal orthopedic devices, implants and grafts, subsequent encounter 10/11/2022 Closed displaced fracture of right talus 022 PTSD (post-traumatic stress disorder) 06/03/2020 Bipolar I disorder, most rec ent episode (or current) depressed, severe, specified as with psychotic behavior 06/02/2020 Amphetamine use disorder, severe, dependence Alcohol use disorder, severe, dependence 020 Post-operative pain Closed displaced fracture of navicular bone of r ight foot Mechanical complication of musculoskeletal impla nt Social History Tobacco Use Types Packs/Day Years Used Date Smoking Tobacco: Every Day Cigarettes 0.5 19.1 Started: 06/02/2006 Smokeless Tobacco: Never Tobacco Cessation:Ready to Q uit: Not Asked; Counseling Given: Not Answered Alcohol Use Standard Drinks/Week Comments Not Currently 14 (1 standard drink = 0.6 oz pure alcohol) Patient reports last use (02/22/22) Comments No Sex and Gender Information Value Date Recorded Sex Assigned at Not on file Legal Sex Female 7:44 PM CDT Gender Identity Not on file Sexual Orientation Not on file Last Filed Vital Signs Vital Sign Reading Time Taken Comments Blood Pressure 115/82 11/10/2022 8:21 AM TRANSFER MACHINE OPERATOR Pulse 83 11/10/2022 8:21 AM TRANSFER MACHINE OPERATOR Temperature 36.9 C (98.5 F) 11/10/2022 8:21 AM TRANSFER MACHINE OPERATOR Respiratory Rate 20 11/10/2022 8:21 AM TRANSFER MACHINE OPERATOR Oxygen Saturation 95% 11/10/2022 8:21 AM TRANSFER MACHINE OPERATOR Inhaled Oxygen Concentration 21% 01/19/2022 5 :30 PM CDT Weight 90.7 kg (200 lb) 06/06/2023 9:46 AM CDT Height 149.9 cm (4' 11) 06/06/2023 9:46 AM CDT Body Mass Index 40.4 06/06/2023 9:46 AM CDT Plan of Treatment Health Maintenance Due Date Last Done Comments HIV SCREENING 2005 DTAP/TDAP/TD VACCINES (1 - Tdap) 2009 HEPATITIS B VACCINE (1 of 3 - 19+ 3-dose series) 2009 PNEUMOCOCCAL VACCINE (1 of 2 - PCV) 2009 PAP SMEAR 2011 HPV VACCINE (1 - 3-dose SCDM series) 2017 COVID-19 VACCINE (4 - 2024-2 6 season) 2025 09/07/2021, 03/16/2021, 01/12/2021 INFLUENZA VACCINE (#1) 2025 ZOSTER VACCINE (1 of 2) 2040 HEPATITIS C SCREENING Completed 06/28/2022 HIB VACCINE Aged Out No longer eligi ble based on patient's age to complete this topic MENINGOCOCCAL (Group B) VACCINE SHARED DECISION-MAKING Aged Out No longer eligible based on patient's age to complete this topic MENINGOCOCCAL GROUPS A/C/Y/W VACCINE Aged Out No longer eligible b ased on patient's age to complete this topic Medical Devices Implanted Type Area Container Filler Device Identifier Shelf Expiration Date Model / Serial / Lot Montage Implanted:Qty: 1 on 01/19/2022 by Luis Enrique Friedman MD at [facility] Right: Foot 05/20/2023 [id number] / / [id number] Screw 2.4mm 36mm T7 Slf-Tap Cortx Vlp Implanted:Qty: 1 on 01/19/2022 by Luis Enrique Friedman MD at [facility] Right: Foot [employer] [id number] / / 3.5mm Cannulated Compression Headless Screw 34mm Implanted:Qty: 1 on 01/19/2022 by Luis Enrique Friedman MD at [facility] Right: Foot [id number] / / 4.0mm Cannulated Compression Headless Screws 28mm Implanted:Qty: 1 on 01/19/2022 by Luis Enrique Friedman MD at [facility] Right: Foot [id number] / / 3 Hole Right Talus Plate Implanted:Qty: 1 on 01/19/2022 by Luis Enrique Friedman MD at [facility] Right: Foot [id number] / / 2.4 Non-Locking Screw 26mm Implanted:Qty: 1 on 01/19/2022 by Luis Enrique Friedman MD at [facility] Right: Foot [id number] / / Screw 2.4mm 30mm T7 Slf-Tap Ft Duy Vlp Implanted:Qty: 1 on 01/19/2022 by Luis Enrique Friedman MD at [facility] Right: Foot [employer] [id number] / / Screw 2.4mm 28mm T7 Lck Slf-Tap Ft Vlp Implanted:Qty: 2 on 01/19/2022 by Luis Enrique Friedman MD at [facility] Right: Foot [employer] [id number] / / Graft Bone Canc 4-9.5mm 15cc Frzdr Chp Implanted:Qty: 1 on 11/08/2022 by Luis Enrique Friedman MD at [facility] Right: Ankle [employer] 06/07/2027 [id number] / / [id number] Graft Bone Trcort Ilium Frzdr Wdg 17-19 Implanted:Qty: 1 on 11/08/2022 by Luis Enrique Friedman MD at [facility] Right: Ankle [employer] 11/22/2025 [id number] / / [id number] Plate 3 Hl Mod Talus Rl Vlp Mini-Mod 2.4 Implanted:Qty: 1 on 11/08/2022 by Luis Enrique Friedman MD at [facility] Right: Ankle [employer] [id number] / / Screw 2.4mm 30mm T7 Slf-Tap Ft Duy Vlp Implanted:Qty: 2 on 11/08/2022 by Luis Enrique Friedman MD at [facility] Right: Ankle [employer] [id number] / / Screw 2.4mm 26mm T7 Slf-Tap Ft Duy Vlp Implanted:Qty: 1 on 11/08/2022 by Luis Enrique Friedman MD at [facility] Right: Ankle [employer] [id number] / / Screw 2.4mm 34mm T7 Slf-Tap Ft Duy Vlp Implanted:Qty: 1 on 11/08/2022 by Luis Enrique Friedman MD at [facility] Right: Ankle [employer] [id number] / / Screw 2.4mm 30mm T7 Lck Slf-Tap Ft Vlp Implanted:Qty: 1 on 11/08/2022 by Luis Enrique Friedman MD at [facility] Right: Ankle [employer] [id number] / / Screw 2.4mm 32mm T7 Lck Slf-Tap Ft Vlp Implanted:Qty: 1 on 11/08/2022 by Luis Enrique Friedman MD at [facility] Right: Ankle [employer] [id number] / / 3.5mm Cannulated Screw Implanted:Qty: 2 on 11/08/2022 by Luis Enrique Friedman MD at [facility] Right: Ankle [employer] Trauma [id number] / / Screw 4.7mm 30mm Ft Evos Strl Osteopenia Implanted:Qty: 1 on 11/08/2022 by Luis Enrique Friedman MD at [facility] Right: Ankle [employer] [id number] / / Explanted Type Area Container Filler Device Identifier Shelf Expiration Date Model / Serial / Lot Screw 2.4mm 30mm T7 Lck Slf-Tap Ft Vlp Explanted:Qty: 1 on 01/19/2022 by Luis Enrique Friedman MD at [facility] Right: Foot [employer] [id number] / / 1.4mm Guidewire, L 150 Mm, Trocar Tip Explanted:Qty: 3 on 01/19/2022 by Luis Enrique Friedman MD at [facility] Right: Foot [id number] / / Wire K 1.6mm 150mm Troc Pnt Ss Fx Strl Explanted:Qty: 2 on 01/19/2022 by Luis Enrique Friedman MD at [facility] Right: Foot [employer] [id number] / / Wire K 1.6mm 150mm Troc Pnt Ss Fx Strl Explanted:Qty: 2 on 11/08/2022 by Luis Enrique Friedman MD at [facility] Right: Ankle [employer] [id number] / / Wire K 2mm 150mm Troc Pnt Ss Fx Strl Explanted:Qty: 3 on 11/08/2022 by Luis Enrique Friedman MD at [facility] Right: Ankle [employer] [id number] / / Screw Explanted:Qty: 1 on 11/08/2022 by Luis Enrique Friedman MD at [facility] Right: Ankle [employer] Trauma [id number] / / Insurance [facility] Advance Directives * Full Code (Latest Code Status on File) Date Activated Date Inactivated Comments 11/08/2022 2:30 PM 11/10/2022 12:00 PM * Full Code Date Activated Date Inactivated Comments 01/19/2022 2:43 PM 01/20/2022 5:30 PM * Full Code Date Activated Date Inactivated Comments 06/02/2020 9:15 PM 06/07/2020 12:08 PM
--- OUTSIDE RECORDS SUMMARY | 2025-07-19 00:30 | XMS_ITS | Encounter Summary ---
Author Organization [facility] Address [address] [place] [address] Phone Care Team Providers Care Human Resources Admin Name Role Phone Unknown, Notinfile Primary Care Provider Unavail able Arnulfo Brewer NP Primary Care Provider +1- [phone] Encounter Details Date Type Department Care Team (Latest Contact Info) Description 06/25/2017 Orders Only [facility] CONVERSION Scanning, Provider Social [...] Date/Time Associated Diagnosis Comments OBSTETRIC/GYNECOLOGY ULTRASONOGRAPHY REPORT 07/23/2017 1:44 PM CDT OBSTETRIC/GYNECOLOGY ULTRASONOGRAPHY REPORT 07/16/2017 3:23 PM CDT OBSTETRIC/GYNECOLOGY ULTRASONOGRAPHY REPORT 07/02/2017 10:40 AM CDT OBSTETRIC/GYNECOLOGY ULTRASONOGRAPHY REPORT 06/25/2017 4:59 PM CDT documented in this encounter Results * OBSTETRIC/GYNECOLOGY ULTRASONOGRAPHY REPORT (07/23/2017 1:44 PM CDT) Anatomical Region Laterality Modality Ultrasound us Provider Scanning IMG OB US PROCEDURES Final Res ult * OBSTETRIC/GYNECOLOGY ULTRASONOGRAPHY REPORT (07/16/2017 3:23 PM CDT) Anatomical Region Laterality Modality Ultrasound us Provider Scanning IMG OB US PROCEDURES Final Res ult * OBSTETRIC/GYNECOLOGY ULTRASONOGRAPHY REPORT (07/02/2017 10:40 AM CDT) Anatomical Region Laterality Modality Ultrasound us Provider Scanning IMG OB US PROCEDURES Final Res ult * OBSTETRIC/GYNECOLOGY ULTRASONOGRAPHY REPORT (06/25/2017 4:59 PM CDT) Anatomical Region Laterality Modality Ultrasound us Provider Scanning IMG OB US PROCEDURES Final Res ult documented in this encounter Visit Diagnoses Not on filedocumented in this encounter Care Teams Human Resources Admin Relationship Specialty Start Date End Date Unknown, Notinfile PCP - General 03/27/17 12/28/22 Arnulfo Brewer, ISAAC [address] [place] [address] [place] [address] PCP - General Pain Management 12/29/22 documented as of this encounter
--- OUTSIDE RECORDS SUMMARY | 2025-07-19 00:30 | XMS_ITS | Patient Health Record ---
Author Organization [facility] Address [address] [place] [address] [place] [address] Care Team Providers Care Continuous Mining Operator Name Role Phone ORIN STEWART, CYNTHIA Primary Care Provider Jeff Alonzo Unavailable [phone] RAMIREZ INIGUEZ JASON Unavailable Unavailable ALLERGIES No Known Allergies REASON FOR REFERRAL No Information MEDICATIONS Medication SIG (Take, Route, Frequency, Duration) Notes Start Date End Date Status Nicotine 21 MG/24HR 1 patch to skin Diaz sdermal Once a day for 30 day(s) Active Lexapro 10 MG 1 tablet Orally Once a day for 30 day(s) Active Wellbutrin XL 150 MG 1 tablet in the mor teresa Orally Once a day for 30 day(s) Active SEROquel 25 MG 1 tablet at bedtime Orally Once a day for 30 day(s) Active hydrOXYzine HCl 50 MG 2 ml as needed Ora lly every 6 hrs Active Vivitrol 380 MG 4 ml Intramuscular f or 30 day(s) Active Xanax 0.25 MG 1-2 tablets Orally 3 0 minutes prior to injection 12/04/2022 Activ e Diclofenac Potassium 50 MG 1 tablet with food or milk as needed Orally Twice a day for 30 days 12/04/2022 Active PROBLEMS Problem Type ICD Code Onset Dates Problem Status W/U Status Risk SNOMED Code Notes Problem Fear of injections and transfusions (F40.231) Active confirmed Fear of medical treatment (998132382) Problem Spondylosis without myelopathy or radiculopathy, cervical region (M47.812) Active confirmed Cervical spondylosis without myelopathy (421554044) Problem Spondylosis without myelopathy or radiculopathy, cervicothoracic region (M47.813) Active confirmed Cervical spondylosis without myelopathy (455733464) Problem Spinal stenosis, cervical region (M48.02) Active confirmed Spinal stenosis in cervical region (81185335) Problem Radiculopathy, cervical region (M54.12) Active confirmed Cervical radiculopathy (89718637) Problem Radiculopathy, cervicothoracic region (M54.13) Active confirmed Cervical radiculopathy (67190867) Problem Cervicalgia (M54.2) Active confirmed Cervicalgia (50675587) Problem 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) Active confirmed Spinal stenosis in cervical region (79293143) Problem Cervical disc disorder at C6-C7 level with radiculopathy (M50.123) Active confirmed Cervical disc disorder with radiculopathy (307996465) Problem Myalgia, other site (M79.18) Active confirmed Muscle pain (28388373) PLAN OF TREATMENT Pending Test Test Name Order Date MRI : Cervical Spine without Contrast (7 0540) 11/14/2021 MRI : Cervical Spine without Contrast (7 0540) 06/21/2022 Insurance Providers Payer Name Payer Address Payer Phone Subscriber Number Group Number Insured Name Patient Relationship to Insured Coverage Start Date Coverage End Date Law office of Justin Mcdonough [address] [place] [place] [phone] ALEXANDRA GARCIA Self - patient is the insured MEDICAL (GENERAL) HISTORY Medical History History ICD Code Headaches Surgical History Surgery Date(Month/Year) Cholecystectomy
--- OUTSIDE RECORDS SUMMARY | 2025-07-19 00:30 | XMS_ITS | Encounter Summary ---
Author Organization [facility] Health Address [facility] [place] [address] Care Team Providers Care Postal Service Window Clerk Name Role Phone Unavailable Primary Care Provider Unavailabl e Reason for Visit * Reason Onset Date Comments MEDICATION REFILL 01/30/2022 Encounter Details Date Type Department Care Team (Late st Contact Info) Description 01/30/2022 Refill [facility] [address] [place] [address], [facility] [place] [id number] Luis Enrique Friedman MD [address] [place] [address] [place] [address] MEDICATION REFILL Social History Tobacco Use Types [...]
[2025-07-19 00:37] VITALS: BP 141/10; PULSE 89; RESP 16; O2SAT 97
--- NOTE | 2025-07-19 00:48 | ED.GENADULT ---
HPI - General Adult General Chief complaint: Nausea/Vomiting/Diarrhea Stated complaint: vomiting Time Seen by Provider: 07/19/25 00:33 History of Present Illness HPI narrative: Patient is a 34-year-old female who presents emergency department this evening complaining of nausea, vomiting and abdominal pain for the past 24 hours. Patient states that she has been unable to keep anything down. Denies any alcohol or drug abuse although patient does have a history of polysubstance abuse. Otherwise denies any recent illness, fevers or chills, chest pain or shortness of breath. There are no additional modifying, alleviating, or precipitating factors at this time. Related Data Home Medications ?Medication ?Instructions ?Recorded ?Confirmed ?Last Taken ?Type bupropion HCl 100 mg tablet,12 hr 100 mg PO DAILY 04/16/21 12/13/21 Unknown History sustained-release escitalopram oxalate 10 mg tablet 10 mg PO DAILY 04/16/21 12/13/21 Unknown History quetiapine 300 mg tablet 300 mg PO DAILY 05/29/21 12/13/21 Unknown History pregabalin 75 mg capsule 75 mg PO BID 12/13/21 12/13/21 Unknown History Allergies Allergy/AdvReac Type Severity Reaction Status Date / Time No Known Allergies Allergy Verified 02/15/23 18:59 Review of Systems Review of Systems: All systems are reviewed and are negative unless stated otherwise in the HPI. [facility] Past Medical History Medical History Dental caries Other specified anxiety disorders Opioid abuse, uncomplicated Surgical History Surgical History History of ankle surgery Social History Social History Smoking status: Current every day smoker Alcohol intake: former Substance use: former Gender identity (if verbalized by the patient): Female Exam Narrative: General: Alert, awake, afebrile, in no acute distress. HEENT: PERRL, no rhinorrhea, no post nasal drip, oropharynx clear. Neck: Trachea midline, no JVD, no lymphadenopathy. Cardiovascular: Regular rate and rhythm, no murmurs, rubs or gallops, no peripheral edema. Respiratory: Clear to auscultation bilaterally, no tachypnea, no wheezing, no rhonchi, no rubs, no respiratory distress. Abdomen: Soft, nontender, nondistended, no rebound, no guarding, no peritoneal signs. Musculoskeletal: No joint swelling or deformity, normal muscle tone. Skin: No rashes or petechia, no signs of infection. Psychiatric: Alert and oriented, normal behavior and judgment for situation. Neurological: Alert and oriented to person, place, and time. Follows all commands. No focal deficits, speech is clear and fluent. Course Vital Signs Vital signs: Vital Signs Pulse Rate 89 07/19/25 00:37 Respiratory Rate 16 07/19/25 00:37 Blood Pressure 141/10 H 07/19/25 00:37 Pulse Oximetry 97 07/19/25 00:37 Oxygen Delivery Room Air 07/19/25 00:37 Pulse Rate 89 07/19/25 00:37 Respiratory Rate 16 07/19/25 00:37 Blood Pressure 141/10 H 07/19/25 00:37 Pulse Oximetry 97 07/19/25 00:37 Oxygen Delivery Room Air 07/19/25 00:37 Medical Decision Making MDM Narrative Medical decision making narrative: The patient was evaluated by myself in the emergency department. History is obtained from patient who is an independent historian and physical exam was performed. External medical records were reviewed at this time. IV was established and pertinent tests were ordered. Patient was administered 2 L IV fluid bolus with normal saline, 4 mg of IV Zofran, 10 mg of IV Reglan, 25 mg of IV Benadryl and 5 mg of IV Haldol with improvement of her nausea/vomiting. Laboratory results obtained revealing AST of 53 and ALT of 70 otherwise unremarkable. Patient liver enzymes are chronically elevated. Urinalysis revealed urinary tract infection. UDS did return back positive for opiates, benzos and cannabinoids. At this time patient was administered 1 g of IV Rocephin. Imaging studies obtained included CT abdomen pelvis with IV contrast which was independently interpreted by me revealing fatty infiltration of the liver otherwise unremarkable, which is pending final radiology interpretation. Differential diagnosis considerations include cyclical vomiting syndrome, dehydration, electrolyte derangements, acute viral syndrome, polysubstance abuse. Comorbidities impacting this visit include history of poly substance/alcohol abuse. I have evaluated and discussed social determinants of health with the patient that could potentially impact subsequent diagnosis and treatment plans. On repeat assessment of the patient, reevaluation revealed that the patient is doing well and is in no acute distress. Patient symptoms have improved since patient arrived to our emergency department. Repeat vital signs were all reviewed and noted to be stable. Differential diagnosis and treatment plan were discussed with the patient at bedside. Patient agrees with discussion and after shared medical decision making agrees with discharge. All questions were answered to the patient's satisfaction. Patient will follow up with her PCP in 3-5 days. For cephalexin and Zofran was sent to patient's pharmacy to use as prescribed. Patient was provided with strict return precautions and instructed to return to the emergency department if any new or worsening symptoms develop. The patient was discharged in stable condition. Vital Signs Vital Signs: Vital Signs Pulse Rate 89 07/19/25 00:37 Respiratory Rate 16 07/19/25 00:37 Blood Pressure 141/10 H 07/19/25 00:37 Pulse Oximetry 97 07/19/25 00:37 Oxygen Delivery Room Air 07/19/25 00:37 Pulse Rate 89 07/19/25 00:37 Respiratory Rate 16 07/19/25 00:37 Blood Pressure 141/10 H 07/19/25 00:37 Pulse Oximetry 97 07/19/25 00:37 Oxygen Delivery Room Air 07/19/25 00:37 Lab Data 07/19/25 01:03 07/19/25 01:32 Labs: Lab Results 07/19/25 07/19/25 07/19/25 Range/Units 00:48 01:03 01:07 WBC 4.8 (4.5-10.0) K/mm3 RBC 4.73 (4.2-5.4) M/mm3 Hgb 11.3 L (12.0-15.0) g/dL Hct 36.4 L (37.0-47.0) % MCV 77.0 L (80-100) fl MCH 23.9 L (26-34) pg MCHC 31.0 L (32-36) g/dl RDW 18.0 H (11.5-14.5) % Plt Count 399 H (150-375) k/mm3 MPV 9.7 (7.4-10.4) fl Immature Gran % (Auto) 0.2 (0-0.5) % Neut % (Auto) 75.0 H (45.5-73.1) % Lymph % (Auto) 17.2 L (18.3-44.2) % Daggett % (Auto) 4.6 (2.6-8.5) % Eos % (Auto) 1.9 (0-4.4) % Baso % (Auto) 1.1 (0.2-1.2) % Lymph # (Auto) 0.82 L (0.9-3.2) K/mm3 Daggett # (Auto) 0.2 (0.1-0.6) K/mm3 Eos # (Auto) 0.1 (0-0.3) K/mm3 Baso # (Auto) 0.1 (0.0-0.1) K/mm3 Abs Immat Gran (auto) 0.01 (0.00-0.031) K/mm3 Absolute Neuts (auto) 3.6 (1.3-6.7) K/mm3 Absolute Nucleated RBC 0.000 (0.0-0.012) K/mm3 Nucleated RBC % 0.0 (0.0-0.2) % Sodium (137-145) mmol/L Potassium (3.4-5.0) mmol/L Chloride (98-107) mmol/L Carbon Dioxide (22-30) mmol/L Anion Gap (4-12) mmol/L BUN (7-17) mg/dL Creatinine (0.7-1.0) mg/dL Estim Creat Clear Calc Estimated GFR (59 - ) Glucose (65-110) mg/dL POC Capillary Glucose 111 H (65-105) mg/dl Calcium (8.4-10.2) mg/dL Magnesium (1.6-2.3) mg/dL Total Bilirubin (0.2-1.3) mg/dL AST (14-36) U/L ALT (6-35) U/L Alkaline Phosphatase (38-126) U/L Total Protein (6.3-8.2) g/dL Albumin (3.5-5.1) g/dL Lipase (23-300) U/L Urine Color (Yellow) Urine Appearance (Clear) Urine pH (5.0-9.0) Ur Specific Newport (1.001-1.035) Urine Protein (Negative) mg/dL Urine Glucose (UA) (Negative) mg/dL Urine Ketones (Negative) mg/dL Ur Blood (Man) (Negative) Urine Nitrate (Negative) Urine Bilirubin (Negative) Urine Urobilinogen (<2.0) mg/dL Add Ur Microanalysis Leukocyte Esterase Rfl (Negative) NAVEED/UL Urine RBC (0-2) /hpf Urine WBC (0-3) /hpf Ur Squamous Epith Cells (Few) /hpf Urine Bacteria /hpf Urine Casts POC Urine HCG, Qual (Negative) Urine Opiates Screen (Negative) Urine Methadone Screen (Negative) Ur Barbiturates Screen (Negative) Ur Phencyclidine Scrn (Negative) Ur Amphetamine Screen U Benzodiazepines Scrn (Negative) Urine Cocaine Screen (Negative) U Cannabinoids Screen (Negative) Influenza A (RT-PCR) Negative (Negative) Influenza B (RT-PCR) Negative (Negative) RSV (RT-PCR) Negative (Negative) SARS-CoV-2 RNA (RT-PCR) Negative (Negative) 07/19/25 07/19/25 07/19/25 Range/Units 01:32 02:50 03:01 WBC (4.5-10.0) K/mm3 RBC (4.2-5.4) M/mm3 Hgb (12.0-15.0) g/dL Hct (37.0-47.0) % MCV (80-100) fl MCH (26-34) pg MCHC (32-36) g/dl RDW (11.5-14.5) % Plt Count (150-375) k/mm3 MPV (7.4-10.4) fl Immature Gran % (Auto) (0-0.5) % Neut % (Auto) (45.5-73.1) % Lymph % (Auto) (18.3-44.2) % Daggett % (Auto) (2.6-8.5) % Eos % (Auto) (0-4.4) % Baso % (Auto) (0.2-1.2) % Lymph # (Auto) (0.9-3.2) K/mm3 Daggett # (Auto) (0.1-0.6) K/mm3 Eos # (Auto) (0-0.3) K/mm3 Baso # (Auto) (0.0-0.1) K/mm3 Abs Immat Gran (auto) (0.00-0.031) K/mm3 Absolute Neuts (auto) (1.3-6.7) K/mm3 Absolute Nucleated RBC (0.0-0.012) K/mm3 Nucleated RBC % (0.0-0.2) % Sodium 135 L (137-145) mmol/L Potassium 4.3 (3.4-5.0) mmol/L Chloride 104 (98-107) mmol/L Carbon Dioxide 25 (22-30) mmol/L Anion Gap 6 (4-12) mmol/L BUN 7 (7-17) mg/dL Creatinine 0.60 L (0.7-1.0) mg/dL Estim Creat Clear Calc Not Reportable Estimated GFR > 60 (59 - ) Glucose 116 H (65-110) mg/dL POC Capillary Glucose (65-105) mg/dl Calcium 8.9 (8.4-10.2) mg/dL Magnesium 1.9 (1.6-2.3) mg/dL Total Bilirubin 0.5 (0.2-1.3) mg/dL AST 53 H (14-36) U/L ALT 70 H (6-35) U/L Alkaline Phosphatase 82 (38-126) U/L Total Protein 7.5 (6.3-8.2) g/dL Albumin 4.0 (3.5-5.1) g/dL Lipase 34 (23-300) U/L Urine Color Yellow (Yellow) Urine Appearance Turbid H (Clear) Urine pH 8.0 (5.0-9.0) Ur Specific Newport 1.021 (1.001-1.035) Urine Protein 1+ H (Negative) mg/dL Urine Glucose (UA) Negative (Negative) mg/dL Urine Ketones 2+ H (Negative) mg/dL Ur Blood (Man) 3+ H (Negative) Urine Nitrate Negative (Negative) Urine Bilirubin Negative (Negative) Urine Urobilinogen 1.0 (<2.0) mg/dL Add Ur Microanalysis Reviewed Leukocyte Esterase Rfl 2+ H (Negative) NAVEED/UL Urine RBC 0-2 (0-2) /hpf Urine WBC 51-100 H (0-3) /hpf Ur Squamous Epith Cells Many H (Few) /hpf Urine Bacteria 3+ H /hpf Urine Casts 0-2 POC Urine HCG, Qual Negative (Negative) Urine Opiates Screen Positive A (Negative) Urine Methadone Screen Negative (Negative) Ur Barbiturates Screen Negative (Negative) Ur Phencyclidine Scrn Negative (Negative) Ur Amphetamine Screen Pending U Benzodiazepines Scrn Positive A (Negative) Urine Cocaine Screen Negative (Negative) U Cannabinoids Screen Positive A (Negative) Influenza A (RT-PCR) (Negative) Influenza B (RT-PCR) (Negative) RSV (RT-PCR) (Negative) SARS-CoV-2 RNA (RT-PCR) (Negative) Discharge Plan Discharge Clinical Impression: Dehydration, Nausea & vomiting, Urinary tract infection, Polysubstance abuse, Abdominal pain Patient Disposition: Home Condition: Improved Instructions: Antibiotic Form, Dehydration (ED), Urinary Tract Infection in Women (DC), Acute Nausea and Vomiting (ED), Polysubstance Use Disorder (ED) Additional Instructions: Please follow-up with your family doctor within the next 3-5 days. Take the prescribed antibiotic as instructed for UTI. Use the prescribed Zofran as needed for nausea/vomiting. Maintain your oral hydration by drinking lots of water. Return to the ED if any new or worsening symptoms develop. Patient Language: Yi Prescriptions: New cephalexin 500 mg capsule 500 mg PO Q12H 7 Days Qty: 14 0RF ondansetron 4 mg tablet,disintegrating 4 mg PO Q8H PRN (Reason: nausea and vomiting) Qty: 10 0RF No Action quetiapine 300 mg tablet 300 mg PO DAILY pregabalin 75 mg capsule 75 mg PO BID methylprednisolone [Medrol (Semaj)] 4 mg tablets,dose pack See Rx Instructions .ROUTE .COMPLEX Qty: 21 0RF Rx Instructions: orally per package directions albuterol sulfate [ProAir HFA] 90 mcg/actuation HFA aerosol inhaler 1 inh inhalation QID PRN (Reason: shortness of breath or wheezing) Qty: 8.5 0RF amoxicillin-pot clavulanate [Augmentin] 500-125 mg tablet 1 tablet PO Q12H 10 Days Qty: 20 0RF bupropion HCl 100 mg tablet sustained-release 12 hr 100 mg PO DAILY escitalopram oxalate 10 mg tablet 10 mg PO DAILY naproxen 500 mg tablet 500 mg PO BID PRN (Reason: pain) Qty: 20 0RF cephalexin 500 mg capsule 500 mg PO Q8H 7 Days Qty: 21 0RF amoxicillin-pot clavulanate 875-125 mg tablet 1 tablet PO Q12H 7 Days Qty: 14 0RF methocarbamol 500 mg tablet 500 mg PO TID Qty: 21 0RF hydrocodone-acetaminophen 5-325 mg tablet 1 tablet PO Q8H PRN (Reason: pain) Qty: 20 0RF ibuprofen 800 mg tablet 800 mg PO TID PRN (Reason: pain) 7 Days Qty: 21 0RF hydrocodone-acetaminophen 5-325 mg tablet 1 tablet PO Q4H PRN (Reason: pain) Qty: 6 0RF acetaminophen 500 mg tablet 1,000 mg PO TID PRN (Reason: tip) 7 Days Qty: 42 0RF amoxicillin-pot clavulanate 875-125 mg tablet 1 tablet PO Q12H Qty: 20 0RF hydrocodone-acetaminophen 5-325 mg tablet 1 tablet PO Q4H Qty: 20 0RF cefpodoxime 200 mg tablet 200 mg PO BID Qty: 28 0RF Rx Instructions: must administer with a meal/food prochlorperazine maleate 5 mg tablet 5 mg PO Q8H PRN (Reason: nausea and vomiting) Qty: 10 0RF ondansetron HCl 4 mg tablet 4 mg PO Q8H PRN (Reason: nausea and vomiting) 5 Days Qty: 20 0RF Follow-up/Referrals: Osman,Arnulfo Coburn APRN [Primary Care Provider, Unknown] - 3 Days Time of Disposition: 04:05
[2025-07-19 01:07] LABS: Hematocrit 36.4 % (37.0-47.0); Hemoglobin 11.3 g/dL (12.0-15.0); Immature Granulocyte Percent A 0.2 % (0-0.5); Lymphocytes Absolute Auto 0.82 K/mm3 (0.9-3.2); Mean Corpuscular HGB Conc 31.0 g/dl (32-36); Mean Corpuscular Hemoglobin 23.9 pg (26-34); Mean Corpuscular Volume 77.0 fl (80-100); Nucleated Red Blood Cells Absolute Auto 0.000 K/mm3 (0.0-0.012); Nucleated Red Blood Cells Perc 0.0 % (0.0-0.2); Platelet Count Result 399 k/mm3 (150-375); Red Blood Count 4.73 M/mm3 (4.2-5.4); White Blood Count 4.8 K/mm3 (4.5-10.0)
[2025-07-19] MEDS: ONDANSETRON INJ 4 MG/2 ML VIAL IV PUSH (01:08)
[2025-07-19] MEDS: SODIUM CHLORIDE 0.9% IV 1,000 ML 999 ML IV CONT ×2 (01:08→03:06)
--- OUTSIDE RECORDS SUMMARY | 2025-07-19 01:18 | XMS_ITS | Clinical Summary ---
Author Organization [facility] Address [address] [place] [address] Phone Care Team Providers Care Boarding Mother Name Role Phone KAROLINA GilbertSANDRA [phone] Reason for Visit and Chief Complaint The Chief Complaint is: post ltcs 11-11-10 Plan of Treatment - OTHER - Last Documented On 12/01/2010 10:27AM ; [facility] Follow-up about 3 weeks (6 week after C/S please) for PP and IUD insertion PHY ORDER/COMMENT please check insurance benefits for Mirena IUD and order if she agrees to applicable charges - Last Documented On 12/01/2010 10:27AM ; [facility] Assessments Includes: Assessments from this encounter No Assessments Recorded Medical Equipment - Implanted Devices Includes: Current Devices No Medical Equipment Recorded Medications Includes: Medications discussed during this encounter and other current Medications Current Medications (continue as prescribed) Mirena (52 MG) 20 MCG/24HR IU IUD 01/18/2011 Provide r: Diagnosis: Inserted 01-18-11 Last Documented On 01/18/2011 3:52PM By SIMEON HA ; [facility] Past Medications on file Promethazine HCl 25 MG OR TABS 09/28/2010 - 10/12/2010 Provider: FATIMAH TALBERT MD Diagnosis: Last Documented On 09/28/2010 9:59AM By FATIMAH TALBERT MD ; [facility] Ondansetron HCl 8 MG OR TABS 09/28/2010 - 10/18/2010 P rovider: FATIMAH TALBERT MD Diagnosis: i po Q8 hours prn nausea Last Documented On 09/28/2010 9:59AM By FATIMAH TALBERT MD ; [facility] Wrist Brace Ultra-Lite MISC 08/17/2010 - 11/15/2010 Pr ovider: FATIMAH TALBERT MD Diagnosis: i right and i left wrist bra ce for carpal tunnel syndrome please Last Documented On 08/17/2010 9:24AM By FATIMAH TALBERT MD ; [facility] 19 OR TABS 03/31/2010 - 03/26/2011 Provider: CHAS HUGGINS Diagnosis: Last Documented On 0 9:44AM By CHAS HUGGINS ; [facility] Medications Administered Includes: Administered Medications from this encounter No Administered Medications Recorded Vital Signs Includes: Vital Signs from this encounter Vital Name 12/01/2010 10:00A Blood Pressure Sitting (mmHg) 110/70 Weight (lb) 152 Last Documented: On 12/01/2010 10:06A M ; [facility] Results Includes: Results discussed during this encounter No Results Recorded For Specified Dates History of Present Illness Includes: History of Present Illness from this encounter CARMEN GARCIA is a 20 year old female. - Patient is no longer taking pain medication - Bleeding has stopped - No pain - Normal appetite - No nausea - Bowel movement frequency has not recently changed - No urinary symptoms - Date of last menstruation was unknown - No depression Social History Description Last Updated Not sexually active 1 Last Documented On 1 10:27AM ; [facility] Smoking Status Unknown Medical History Includes: Medical History addressed during this encounter Description Last Updated Infant is not breast-feeding 12/01/2010 Last Documented On 1 10:27AM ; [facility] Baby thriving boy-lani 12/01/2010 Last Documented On 1 10:27AM ; [facility] Contraception: mirena, but not inserting today 12/01/2010 Last Documented On 1 10:27AM ; [facility] Infant is bottle-feeding 12/01/2010 Last Documented On 1 10:27AM ; [facility] Last pap smear date 03/31/2010 12/01/2010 Last Documented On 1 10:27AM ; [facility] Family History Includes: Family History addressed during this encounter No Family History Recorded Review of Systems Includes: Review of Systems from this encounter No Review of Systems Recorded Mental Status Includes: Mental Status from this encounter No Mental Status Recorded Functional Status Includes: Functional Status from this encounter No Functional Status Recorded Physical Exam Includes: Physical Exam from this encounter Allergies Includes: Active Allergies No Known Allergies Encounters Encounter Provider Location Date Check-In Time Check- Out Time Diagnosis POST VISIT FATIMAH TALBERT MD [facility] [employer] [facility] 1 9:54AM 10:33AM Clinical Notes Includes: Clinical Notes from this encounter No Clinical Notes Recorded
--- OUTSIDE RECORDS SUMMARY | 2025-07-19 01:18 | XMS_ITS | Encounter Summary ---
Author Organization [facility] Address [facility] [place] [address] Care Team Providers Care Grooming Assistant Name Role Phone Unavailable Primary Care Provider Unavailabl e Reason for Visit * Reason Onset Date Comments MEDICATION REFILL 08/02/2022 Encounter Details Date Type Department Care Team (Late st Contact Info) Description 08/02/2022 Refill [facility] [address] [place] [address], [facility] [place] [id number] Luis Enrique Friedman MD [address] [place] [address] OF [place] [address] MEDICATION REFILL Social History Tobacco Use Types Packs/Day Years Used Date Smoking Tobacco: Every Day Cigarettes 0.5 19.1 Started: 06/02/2006 Smokeless Tobacco: Never Alcohol [...]
--- OUTSIDE RECORDS SUMMARY | 2025-07-19 01:18 | XMS_ITS | Encounter Summary ---
Author Organization [facility] Address [address] [place] [address] Phone Care Team Providers Care Office Administrative Assistant Name Role Phone Unknown, Notinfile Primary Care Provider Unavail able Arnulfo Brewer NP Primary Care Provider [phone] Encounter Details Date Type Department Care Team [...] on filedocumented in this encounter Care Teams Office Administrative Assistant Relationship Specialty Start Date End Date Unknown, Notinfile PCP - General 03/27/17 12/28/22 Arnulfo Brewer, ISAAC [address] [place] [address] [place] [address] PCP - General Pain Management 12/29/22 documented as of this encounter
--- OUTSIDE RECORDS SUMMARY | 2025-07-19 01:18 | XMS_ITS | Encounter Summary ---
Author Organization [facility] Health Address [facility] [place] [address] Care Team Providers Care Pallet Rectifier Name Role Phone Unavailable Primary Care Provider Unavailabl e Reason for Visit * Reason Onset Date Comments MEDICATION REFILL 01/30/2022 Encounter Details Date Type Department Care Team (Late st Contact Info) Description 01/30/2022 Refill [facility] [address] [place] [address], [facility] [place] [phone] Luis Enrique Friedman MD [address] [place] [address] OF [place]OPEDIC [place] [address] MEDICATION REFILL Social History Tobacco Use Types [...]
--- OUTSIDE RECORDS SUMMARY | 2025-07-19 01:19 | XMS_ITS ---
Care Plan - [facility] Created on: July 19, 2025 ALEXANDRA GARCIA : 1990 Sex: Female Author Organization [facility] Address [address] [place] [address] Phone Care Team Providers Care Batching Operator Name Role Phone SANDRA TURCIOS M.D. Unavailable [phone]
--- OUTSIDE RECORDS SUMMARY | 2025-07-19 01:19 | XMS_ITS | Clinical Summary ---
Author Organization [facility] Address [address] [place] [address] Phone Care Team Providers Care Burglar Alarm Installer Name Role Phone KAROLINA HuntSANDRA [phone] Reason for Visit and Chief Complaint visit for: IUD Insertion - The Chief Complaint is: from LTCS 11-11-10 and Mirena IUD insertion Plan of Treatment - OTHER - Last Documented On 01/18/2011 3:54PM ; [facility] Follow-up 1 month IUD check - Last Documented On 01/18/2011 3:54PM ; [facility] ? Gynecologic Services Intrauterine Device (IUD) InsertionIn office procedures/OB: IUD Insertion - Last Documented On 01/18/2011 3:54PM ; [facility] Pending Tests Order Diagnosis Results Due Ordering Manisha grewal In office procedures - OB IUD Insertion INSERTION OF IUD 02/01/11 FATIMAH Benavides Last Documented On 1 3:53PM ; [facility] Assessments Includes: Assessments from this encounter Findings - Contraceptive management: Insertion of IUD - Last Documented On 01/18/2011 3:54PM ; [facility] Medical Equipment - Implanted Devices Includes: Current Devices No Medical Equipment Recorded Medications Includes: Medications discussed during this encounter and other current Medications Current Medications (continue as prescribed) Mirena (52 MG) 20 MCG/24HR IU IUD 01/18/2011 Provide r: Diagnosis: Inserted 01-18-11 Last Documented On 01/18/2011 3:52PM By SIMEON HA ; [facility] Past Medications on file Promethazine HCl 25 MG OR TABS 09/28/2010 - 10/12/2010 Provider: FATIMAH TALBERT MD Diagnosis: Last Documented On 09/28/2010 9:59AM By FATIMAH TALBERT MD ; [facility] Ondansetron HCl 8 MG OR TABS 09/28/2010 - 10/18/2010 P rovider: FATIMAH TALBERT MD Diagnosis: i po Q8 hours prn nausea Last Documented On 09/28/2010 9:59AM By FATIMAH TALBERT MD ; [facility] Wrist Brace Ultra-Lite MISC 08/17/2010 - 11/15/2010 Pr ovider: FATIMAH TALBERT MD Diagnosis: i right and i left wrist bra ce for carpal tunnel syndrome please Last Documented On 08/17/2010 9:24AM By FATIMAH TALBERT MD ; [facility] 19 OR TABS 03/31/2010 - 03/26/2011 Provider: CHAS HUGGINS Diagnosis: Last Documented On 0 9:44AM By CHAS HUGGINS ; [facility] Medications Administered Includes: Administered Medications from this encounter No Administered Medications Recorded Results Includes: Results discussed during this encounter No Results Recorded For Specified Dates History of Present Illness Includes: History of Present Illness from this encounter CARMEN GARCIA is a 20 year old female. - Patient is no longer taking pain medication - Bleeding has stopped - Pain only cramping with menses - No problems with nursing - Normal appetite - No nausea - Bowel movement frequency has not recently changed - Date of last menstruation 01/14/2011 - No urinary symptoms - No depression Social History Description Last Updated Sexually active a few days ag o and used condoms 01/18/2011 Last Documented On 1 3:54PM ; [facility] Smoking Status Unknown Procedures and Surgical History Includes: Procedures from this encounter Procedures Code Diagnosis Performing Provider Service L ocation Service Date insertion of intrauterine device (IUD) .Risks versus benefits discussed. Consent signed [id number] Last Documented On 1 3:53PM ; [facility] Sterile speculum inserted Last Documented On 1 3:53PM ; [facility] Cervix easily visualized , cervix swabbe d with Betadine Last Documented On 1 3:53PM ; [facility] Tenaculum applied to anterior cervix. Last Documented On 1 3:53PM ; [facility] Uterus sounded to 9 cm Last Documented On 1 3:54PM ; [facility] Mirena buttonhole tacker introduced through cervi x to 8 cm Last Documented On 1 3:54PM ; [facility] Mirena released and buttonhole tacker advanced to 9 cm Last Documented On 1 3:54PM ; [facility] Funeral Driver removed. Last Documented On 1 3:53PM ; [facility] Tenaculum removed and pressu re applied to tenaculum sites with cotton swabs until hemostatis obtained. Last Documented On 1 3:53PM ; [facility] IUD strings trimmed to 3-4 cm. Last Documented On 1 3:53PM ; [facility] Patient tolerated procedure well Last Documented On 1 3:53PM ; [facility] Instructed to use non-hormonal, back-up method of control x 1 month Last Documented On 1 3:53PM ; [facility] Patient verbalizes understanding Last Documented On 1 3:53PM ; [facility] RTO in month for IUD check. Last Documented On 1 3:53PM ; [facility] Encouraged to call office with any IUD c oncerns Last Documented On 1 3:53PM ; [facility] Medical History Includes: Medical History addressed during this encounter Description Last Updated Baby thriving Sarpy 01/18/2011 Last Documented On 1 3:54PM ; [facility] Contraception: Mirena IUD 01/18/2011 Last Documented On 1 3:54PM ; [facility] Infant is bottle-feeding 01/18/2011 Last Documented On 1 3:54PM ; [facility] Infant is not breast-feeding 01/18/2011 Last Documented On 1 3:54PM ; [facility] Last pap smear date 03/31/2010 WNL 2010 Last Documented On 1 3:54PM ; [facility] Family History Includes: Family History addressed during [...] Encounters Encounter Provider Location Date Check-In Time Check-Out Time Diagnosis POST VISIT FATIMAH TALBERT MD [facility] LEAD INFORMATICA DEVELOPER 01/19/20 11 3:23PM 3:57PM Contraceptive Management: Insertion of Iud Clinical Notes Includes: Clinical Notes from this encounter No Clinical Notes Recorded
--- OUTSIDE RECORDS SUMMARY | 2025-07-19 01:19 | XMS_ITS | Encounter Summary ---
Author Organization [facility] Health Address [facility] [facility] [place] [address] Care Team Providers Care Beauty Sales Consultant Name Role Phone Unavailable Primary Care Provider Unavailabl e Reason for Visit * Reason Onset Date Comments MEDICATION REFILL 01/30/2022 Encounter Details Date Type Department Care Team (Late st Contact Info) Description 01/30/2022 Refill [facility] - Orthopedics [address] [place] [address], [place] [id number] Luis Enrique Friedman MD [address] [place] [address] [place] [address] MEDICATION REFILL Social History Tobacco Use Types [...]
--- OUTSIDE RECORDS SUMMARY | 2025-07-19 01:19 | XMS_ITS | Encounter Summary ---
Author Organization [facility] Address [address] [place] [address] Phone Care Team Providers Care Flexographic Press Operator Name Role Phone Unknown, Notinfile Primary Care Provider Unavail able Arnulfo Brewer NP Primary Care Provider [phone] Encounter Details Date Type Department Care Team [...] on filedocumented in this encounter Care Teams Flexographic Press Operator Relationship Specialty Start Date End Date Unknown, Notinfile PCP - General 03/27/17 12/28/22 Arnulfo Brewer NP [address] [facility] [place] [address] PCP - General Pain Management 12/29/22 documented as of this encounter
--- OUTSIDE RECORDS SUMMARY | 2025-07-19 01:19 | XMS_ITS | Clinical Summary ---
Author Organization [facility] Address [address] [place] [address] Care Team Providers Care Security Shift Supervisor Name Role Phone Arnulfo Brewer NP Primary Care Provider [phone] Allergies No known active allergies Medications ondansetron [...] Comments Blood Pressure 111/69 12/29/2022 7:35 PM ROTARY SWAGING MACHINE OPERATOR Pulse 101 12/29/2022 7:35 PM ROTARY SWAGING MACHINE OPERATOR Temperature 36.6 C (97.8 F) 12/29/2022 7:35 PM ROTARY SWAGING MACHINE OPERATOR Respiratory Rate 18 12/29/2022 7:35 PM ROTARY SWAGING MACHINE OPERATOR Oxygen Saturation 99% 12/29/2022 7:35 PM ROTARY SWAGING MACHINE OPERATOR Inhaled Oxygen Concentration - - Weight 77.1 [...] C genotype (03/27/2017 11:35 AM CDT) Pathologist [facility] HCV genotype Undetected Undetected [facility] Comment: Assay failed to detect HCV RNA. This assay is not intended for HCV RNA detection purposes. ADDITIONAL INFORMATION This test was performed using the [employer] RealTime HCV Genotype II assay ([employer] [place], [place]). Test Performed by: [facility] - [address] [address] Blood specimen (specimen) 03/27/2017 11:35 AM CDT 03/27/2017 12:55 PM CDT us Lydia Cadena MD LAB MICROBIOLOGY - GENER AL ORDERABLES Final Result Performing Organization Address City/State/[facility] Co de Phone Number [facility] Department [place] [address] from Last 3 Months or Most Recently Relevant to Health Maintenance Insurance [facility] Care Teams Security Shift Supervisor Relationship Specialty Start Date End Date Arnulfo Brewer NP [address] [facility] [place] [address] PCP - General Pain Management 12/29/22
--- OUTSIDE RECORDS SUMMARY | 2025-07-19 01:20 | XMS_ITS | Clinical Summary ---
Author Organization [facility] Address [address] [place] [address] Care Team Providers Care Learning And Development Manager Name Role Phone Unavailable Primary Care Provider Unavailabl e Source Comments [facility],non-owned Affiliates and Associated Physician Practices is amultiple site organization consisting of ambulatory clinics and hospital sitesin [place], [place], [place] and [place]. This disclosure is being madepursuant to the Care Everywhere program and may not contain all information available regarding this patient. Last updated 18.[facility] Allergies No known active allergies Medications * [...] Comments Blood Pressure 115/82 11/10/2022 8:21 AM DRAG OUT MAN Pulse 83 11/10/2022 8:21 AM DRAG OUT MAN Temperature 36.9 C (98.5 F) 11/10/2022 8:21 AM DRAG OUT MAN Respiratory Rate 20 11/10/2022 8:21 AM DRAG OUT MAN Oxygen Saturation 95% 11/10/2022 8:21 AM DRAG OUT MAN Inhaled Oxygen Concentration 21% 01/19/2022 5 :30 [...] this topic Medical Devices Implanted Type Area Tear Down Man Device Identifier Shelf Expiration Date Model / Serial / Lot Montage Implanted:Qty: 1 on 01/19/2022 by Luis Enrique Friedman MD at [facility] Right: Foot 05/20/2023 [id number] / / [id number] Screw 2.4mm 36mm T7 Slf-Tap Cortx Vlp Implanted:Qty: 1 on 01/19/2022 by Luis Enrique Friedman MD at [facility] Right: Foot [employer] [id number] / / 3.5mm Cannulated Compression Headless Screw 34mm Implanted:Qty: 1 on 01/19/2022 by Luis Enrique Friedman MD at [facility] Right: Foot [id number] / / 4.0mm Cannulated Compression Headless Screws 28mm Implanted:Qty: 1 on 01/19/2022 by Luis Enrique Friedman MD at [facility] Right: Foot [id number] / / 3 Hole Right Talus Plate Implanted:Qty: 1 on 01/19/2022 by Luis Enrique Friedman MD at [facility] Right: Foot [id number] / / 2.4 Non-Locking Screw 26mm Implanted:Qty: 1 on 01/19/2022 by Luis Enrique Friedman MD at [facility] Right: Foot [id number] / / Screw 2.4mm 30mm T7 Slf-Tap Ft Duy Vlp Implanted:Qty: 1 on 01/19/2022 by Luis Enrique Friedman MD at [facility] Right: Foot [employer] [id number] / / Screw 2.4mm 28mm T7 Lck Slf-Tap Ft Vlp Implanted:Qty: 2 on 01/19/2022 by Luis Enrique Friedman MD at [facility] Right: Foot [employer] [id number] / / Graft Bone Canc 4-9.5mm 15cc Frzdr Chp Implanted:Qty: 1 on 11/08/2022 by Luis Enrique Friedman MD at [facility] Right: Ankle [employer] 06/07/2027 [id number] / / [id number] Graft Bone Trcort Ilium Frzdr Wdg 17-19 Implanted:Qty: 1 on 11/08/2022 by Luis Enrique Friedman MD at [facility] Right: Ankle [employer] 11/22/2025 [id number] / / [id number] Plate 3 Hl Mod Talus Rl Vlp Mini-Mod 2.4 Implanted:Qty: 1 on 11/08/2022 by Luis Enrique Friedman MD at [facility] Right: Ankle [employer] [id number] / / Screw 2.4mm 30mm T7 Slf-Tap Ft Duy Vlp Implanted:Qty: 2 on 11/08/2022 by Luis Enrique Friedman MD at [facility] Right: Ankle [employer] [id number] / / Screw 2.4mm 26mm T7 Slf-Tap Ft Duy Vlp Implanted:Qty: 1 on 11/08/2022 by Luis Enrique Friedman MD at [facility] Right: Ankle [employer] [id number] / / Screw 2.4mm 34mm T7 Slf-Tap Ft Duy Vlp Implanted:Qty: 1 on 11/08/2022 by Luis Enrique Friedman MD at [facility] Right: Ankle [employer] [id number] / / Screw 2.4mm 30mm T7 Lck Slf-Tap Ft Vlp Implanted:Qty: 1 on 11/08/2022 by Luis Enrique Friedman MD at [facility] Right: Ankle [employer] [id number] / / Screw 2.4mm 32mm T7 Lck Slf-Tap Ft Vlp Implanted:Qty: 1 on 11/08/2022 by Luis Enrique Friedman MD at [facility] Right: Ankle [employer] [id number] / / 3.5mm Cannulated Screw Implanted:Qty: 2 on 11/08/2022 by Luis Enrique Friedman MD at [facility] Right: Ankle [employer] Trauma [id number] / / Screw 4.7mm 30mm Ft Evos Strl Osteopenia Implanted:Qty: 1 on 11/08/2022 by Luis Enrique Friedman MD at [facility] Right: Ankle [employer] [id number] / / Explanted Type Area Tear Down Man Device Identifier Shelf Expiration Date Model / Serial / Lot Screw 2.4mm 30mm T7 Lck Slf-Tap Ft Vlp Explanted:Qty: 1 on 01/19/2022 by Luis Enrique Friedman MD at [facility] Right: Foot [employer] [id number] / / 1.4mm Guidewire, L 150 Mm, Trocar Tip Explanted:Qty: 3 on 01/19/2022 by Luis Enrique Friedman MD at [facility] Right: Foot [id number] / / Wire K 1.6mm 150mm Troc Pnt Ss Fx Strl Explanted:Qty: 2 on 01/19/2022 by Luis Enrique Friedman MD at [facility] Right: Foot [employer] [id number] / / Wire K 1.6mm 150mm Troc Pnt Ss Fx Strl Explanted:Qty: 2 on 11/08/2022 by Luis Enrique Friedman MD at [facility] Right: Ankle [employer] [id number] / / Wire K 2mm 150mm Troc Pnt Ss Fx Strl Explanted:Qty: 3 on 11/08/2022 by Luis Enrique Friedman MD at [facility] Right: Ankle [employer] [id number] / / Screw Explanted:Qty: 1 on 11/08/2022 by Luis Enrique Friedman MD at [facility] Right: Ankle [employer] Trauma [id number] / / Insurance [facility] Advance Directives * Full Code (Latest Code Status on File) Date Activated Date Inactivated Comments 11/08/2022 2:30 PM 11/10/2022 12:00 PM * Full Code Date Activated Date Inactivated Comments 01/19/2022 2:43 PM 01/20/2022 5:30 PM * Full Code Date Activated Date Inactivated Comments 06/02/2020 9:15 PM 06/07/2020 12:08 PM
--- OUTSIDE RECORDS SUMMARY | 2025-07-19 01:20 | XMS_ITS | Clinical Summary ---
Author Organization [facility] Address [address] [place] [address] Phone Care Team Providers Care Client Services Analyst Name Role Phone KAROLINA HuntSANDRA [phone] Reason for Visit and Chief Complaint SLEEVE PRESSER OPERATOR EXAM Plan of Treatment No Plan of Treatment Recorded Assessments Includes: Assessments from this encounter No Assessments Recorded Medical Equipment - Implanted Devices Includes: Current Devices No Medical Equipment Recorded Medications Includes: Medications discussed during this encounter and other current Medications Current Medications (continue as prescribed) Mirena (52 MG) 20 MCG/24HR IU IUD 01/18/2011 Provide r: Diagnosis: Inserted 01-18-11 Last Documented On 01/18/2011 3:52PM By SIMEON HA ; [facility] Medications Administered Includes: Administered Medications from this encounter No Administered Medications Recorded Results Includes: Results discussed during this encounter No Results Recorded For Specified Dates History of Present Illness Includes: History of Present Illness from this encounter No History of Present Illness Recorded Social History No Social History Recorded - Smoking Status Unknown Medical History Includes: Medical History addressed during this encounter No Medical History Recorded Family History Includes: Family History addressed during this encounter No Family History Recorded Review of Systems Includes: Review of Systems from this encounter No Review of Systems Recorded Mental Status Includes: Mental Status from this encounter No Mental Status Recorded Functional Status Includes: Functional Status from this encounter No Functional Status Recorded Physical Exam Includes: Physical Exam from this encounter No Physical Exam Recorded Allergies Includes: Active Allergies No Known Allergies Clinical Notes Includes: Clinical Notes from this encounter No Clinical Notes Recorded
--- OUTSIDE RECORDS SUMMARY | 2025-07-19 01:20 | XMS_ITS | Clinical Summary ---
Author Organization [facility] Address [address] [place] [address] Phone Care Team Providers Care Area Captain Name Role Phone KAROLINA HuntSANDRA [phone] Reason for Visit and Chief Complaint The Chief Complaint is: 1 month IUD check, inserted 01-18-11. Pt c/o N/V, states that she feels likeshe's Plan of Treatment - MENOMETRORRHAGIA - Last Documented On 02/22/2011 3:39PM ; [facility] In office procedures/*Clia Waived Labs: Urine Test - Last Documented On 02/22/2011 3:39PM ; [facility] ? OTHERFollow-up 03/31 or after for annual w/CE or SC - Last Documented On 02/22/2011 3:39PM ; [facility] Pending Tests Order Diagnosis Results Due Ordering Provider In office procedures - *Clia Waived Labs Urine Test Excessive Menstruation 03/08/11 FATIMAH TALBERT MD Last Documented On 1 3:37PM ; [facility] Assessments Includes: Assessments from this encounter Findings - Contraceptive management - Last Documented On 02/22/2011 3:39PM ; [facility] - Menometrorrhagia - Last Documented On 02/22/2011 3:39PM ; [facility] Medical Equipment - Implanted Devices Includes: Current Devices No Medical Equipment Recorded Medications Includes: Medications discussed during this encounter and other current Medications Current Medications (continue as prescribed) Mirena (52 MG) 20 MCG/24HR IU IUD 01/18/2011 Provide r: Diagnosis: Inserted 01-18-11 Last Documented On 01/18/2011 3:52PM By SIMEON HA ; [facility] Past Medications on file Promethazine HCl 25 MG OR TABS 09/28/2010 - 10/12/2010 Provider: FATIMAH TALBERT MD Diagnosis: Last Documented On 09/28/2010 9:59AM By FATIMAH TALBERT MD ; [facility] Ondansetron HCl 8 MG OR TABS 09/28/2010 - 10/18/2010 Manisha robertoder: FATIMAH TALBERT MD Diagnosis: i po Q8 hours prn nausea Last Documented On 09/28/2010 9:59AM By FATIMAH TALBERT MD ; [facility] Wrist Brace Ultra-Lite MISC 08/17/2010 - 11/15/2010 Pr ovider: FATIMAH TALBERT MD Diagnosis: i right and i left wrist bra ce for carpal tunnel syndrome please Last Documented On 08/17/2010 9:24AM By FATIMAH TALBERT MD ; [facility] 19 OR TABS 03/31/2010 - 03/26/2011 Provider: CHAS HUGGINS Diagnosis: Last Documented On 0 9:44AM By CHAS HUGGINS ; [facility] Medications Administered Includes: Administered Medications from this encounter No Administered Medications Recorded Vital Signs Includes: Vital Signs from this encounter Vital Name 02/22/2011 03:15P Blood Pressure Sitting R 108/60 BP Cuff Size Regular Pulse Rate-Sitting (bpm) 72 Weight (lb) 154 Last Documented: On 02/22/2011 3:28PM ; [facility] Results Includes: Results discussed during this encounter No Results Recorded For Specified Dates History of Present Illness Includes: History of Present Illness from this encounter CARMEN GARCIA is a 20 year old female. 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 - No pelvic pain - No vaginal discharge She reports feeling queasy at times, no emesis. No breast tenderness. She says she's used a condom every time she's had sex since baby was born Social History No Social History Recorded - Smoking Status Unknown Procedures and Surgical History Includes: Procedures from this encounter Procedures Code Diagnosis Performing Provider Service L ocation Service Date follow-up visit for annual exam Last Documented On 1 3:38PM ; [facility] Patient reassured IUD in cor rect position and she may rely on it for contraception Last Documented On 1 3:38PM ; [facility] Medical History Includes: Medical History addressed [...] Location Date Check-In Time Check-Out Time Diagnosis 1 MONTH CHECK FATIMAH TALBERT MD [facility] LITIGATION DOCKET MANAGER 02/23/20 11 3:23PM 3:38PM Menometrorrhag ia,Contracepti ve Management Clinical Notes Includes: Clinical Notes from this encounter No Clinical Notes Recorded
--- OUTSIDE RECORDS SUMMARY | 2025-07-19 01:20 | XMS_ITS | Data Portability ---
[facility] Address [address] [place] [address] Care Team Providers Care Support Clerk Name Role Phone KAYLEIGH FRANCIS Dehydrator [phone] Assessment No assessment recorded. Plan of Treatment Reminders Order Date Submit Date Provider Last Modified By Organization Details Last Modified Time Details Appointments None recorded. Lab vitamin B12 + folate, serum or blood 2020 021 [facility] [address], [address], [place], [address], 1 08:18:49 vitamin D, 25-hydroxy , total, serum 2020 021 [facility] [address], [address], [place], [address], 1 08:18:50 CMP, serum or plasma 2020 021 [facility], [address], [address], [place], [address], 1 08:18:49 glucose tolerance test, post-50G, 1-hour 2016 017 [facility], [address], [address], [place], [address], 7 14:14:12 test, urine 2016 017 clau In-Office Order, Internal Use Only DO Not Attach Compendium DO Not Attach Compendium, Do Not Delete/merge, [id number] 7 16:34:02 RPR (rapid plasma reagin), serum - Please fax results to [facility] 2016 017 [facility], [address] [facility], [place], [address], 7 14:14:10 culture, urine - Please fax results to [facility] 2016 017 [facility], [address] [place] [address] [address], [address], [place], [address], 7 06:06:25 HCG, intact + beta subunit, quant, serum or plasma - Please fax results to [facility] 2016 017 NIRU LABMIKE, [facility], [address], [place], [address], 7 14:14:09 HSV (1+2) DNA, qual, PCR, unspecifie d specimen - Please fax results to [facility] 2016 017 [facility], [address] [place] [address] [address], [address], [place], [address], 7 14:14:07 culture, vaginal/re ctal, streptococ cus group B - Please fax results to [facility] 2016 017 [facility], [address] [facility], [address], [place], [address], 7 14:14:13 varicella- zoster igg Ab screen, serum - Fax results to [facility] 2016 017 [facility], [address] [place] [address], [address], [place], [address], 7 14:14:12 HbA1c (hemoglobi n A1c), blood - Please fax to [facility] 2016 017 [facility], [address] [place] [address], [address], [place], [address], 7 14:14:08 vitamin D3, 25-hydroxy , serum - [id number] Please fax results to [facility] 2016 017 [facility], [address] [place] [address], [address], [place], [address], 7 09:50:54 CBC w/ auto diff - Please fax results to [facility] 2016 017 [facility], [address] [place] [address], [address], [place], [address], 7 14:14:06 hsv-2 (herpes simplex virus type 2) igg Ab, serum - Please fax results to [facility] 2016 017 [facility], [address] [place] [address], [address], [place], [address], 7 14:14:13 HBsAg (hepatitis B surface Ag), EIA, serum - Please fax results to [facility] 2016 017 [facility], [address], [address], [place], [address], 7 14:14:14 cf (cystic fibrosis) profile - Please fax results to [facility] 2016 017 roz [facility], [address] [facility] [address] [facility] [address], [address], [place], [address], 7 09:50:54 rubella IgG Ab, quant immunoassa y, serum or plasma - Please fax results to [facility] 2016 017 [facility], [address] [facility] [address], [address], [place], [address], 7 14:14:10 pap, IG + HPV, cervical - Please also use Code Z11.51 for HPV screening off of the pap 2016 017 [facility], [address] [facility] [address], [address], [place], [address], 7 06:05:56 type + screen, serum - Please fax results to [facility] 2016 017 [facility], [address] [facility] [address] [facility], [address], [place], [address], 7 14:14:07 HIV 1+2 AB + HIV 1 p24 Ag, qualitativ e immunoassa y, serum - please fax results to [facility] 2016 017 [facility], 20[address] Joana Correa, [address], [address], 7 14:14:11 unlisted lab - toxassure select 13 (mw) 2016 017 NIR[facility], [address], [address], [place], [address], 7 14:14:04 bacterial vaginosis + vaginitis panel, vaginal - Please fax results to [facility] 2016 017 [facility], [facility] [address], [address], [place], [address], 7 14:14:05 hemoglobin S (hbs), presence, blood - Please fax results to [facility] 2016 017 [facility], [facility] [address], [address], [place], [address], 7 14:14:09 TSH, 2nd Generation , QN, serum or plasma - [id number] 2016 017 [facility], [address], [address], [place], [address], 7 09:50:54 afp (alpha-fet oprotein) panel, maternal screen, serum 2016 017 NIRU JAMA, [facility] [address], [address], [place], [address], 7 14:14:05 cf (cystic fibrosis) profile 2016 017 NIRU LUU, [facility] [address], [address], [place], [address], 7 14:14:08 urinalysis , dipstick 2016 017 clau In-Office Order, Internal Use Only DO Not Attach Compendium DO Not Attach Compendium, Do Not Delete/merge, [id number] 7 13:27:49 Referral counseling referral 2016 017 Bobby (), [address] [place], [address], 7 10:18:28 maternal & medicine referral 2016 017 [facility], [address] [place], [address], 7 11:38:42 Procedures nerve conduction study/EMG, upper extremity (PROC) 2020 021 [facility] (Cardiology & Emg), [address], [address], 1 16:34:37 Surgeries None recorded. Imaging US, obstetric, 1st trimester - Z34.9, Z36, Z34 2016 017 bmoser Not available 7 09:42:30 Medication Orders gabapentin 100 mg capsule 2020 021 [id number], [address] [place], [id number], 1 12:07:16 Calcium with Vitamin D3 600 mg (carbonate )-10 mcg (400 unit) capsule 2016 017 [id number], [address] [place], [id number], 1 10:15:47 Gummy 400 mcg-35 mg-25 mg-5 mg chewable tablet 2016 017 [id number], [address], [place], [id number], 1 10:16:48 Zoloft 50 mg tablet 2016 017 [facility], [address], [place], [id number], 1 10:17:16 Patient TargetsNo targets recorded. Patient Instructions Encounter Date Encounter Id Patient Instructions Last Modified By Organization Details Last Modified Time 03/12/2017 [id number] When You Want to Lose Weight: Care Instructions clau Not available 03/12/2017 16:44:06 learning about depression during [email or web address] Not available 03/12/2017 17:53:20 The following is a list of safe medications which you can use during . Be sure to let your physician know if you are starting or have started a new medication. Pain Medication: Tylenol (acetaminophen) for minor aches and pains Decongestants/Co h Medicine: Sudafed (pseudoephedrine ) avoid if you have high blood pressure Robitussin CF, DM Tavist D [place] Mist Nasal [place] Antihistamines: Claritin and Claritin D Benadryl Dimetapp Lani and Lani D Zyrtec Heartburn/Indige stion: Tums Rolaids Gas X Mylanta Maalox Pepcid Zantac *DO NOT USE PEPTO BISMOL* Nausea: Small, frequent meals of bland foods such as dry toast, dry cereal, saltine crackers Vitamin B6 Doxylamine (unisom) Sea Bands Diarrhea: Imodium/Imodium AD Constipation: Colace Metamucil Miralax FiberCon Citrucel Milk of Magnesium Hemorrhoids: Preparation H Tucks Anusol Yeast Infections: Monistat Gyne-Lotrimin Toothaches: Orajel sdevriesma Not available 03/12/2017 15:56:01 Reason for Referral Counseling Referral for Posi tive screening for depression on PHQ-9 (Patient Health Questionnaire 9) Referring Physician: Kayleigh Francis SPLICER APPRENTICE, Encounter Date: 03/12/2017 Maternal & Medicine Re ferral for Depressive disorder Referring Physician: Kayleigh Francis SPLICER APPRENTICE, Encounter Date: 03/12/2017 Results Created Date Observation Date Name Description Value Unit Range Abnormal Flag Note LastModifiedBy Organization Detail LastModifiedTime 03/13/20 17 03/13/2017 urina lysis , dipst ick Leukocytes Negati ve Not Available In-Office Order Internal Use Only DO Not Attach Compendium DO Not Attach Compendium, Do Not Delete/merge, 03/13/2017 12:58:31 03/13/20 17 03/13/2017 urina lysis , dipst ick Nitrite negati ve Not Available In-Office Order Internal Use Only DO Not Attach Compendium DO Not Attach Compendium, Do Not Delete/merge, 03/13/2017 12:58:31 03/13/20 17 03/13/2017 urina lysis , dipst ick Urobilinogen 4 Not Available In-Of fice Order Internal Use Only DO Not Attach Compendium DO Not Attach Compendium, Do Not Delete/merge, 03/13/2017 12:58:31 03/13/2003/13/2017 urina lysis , dipst ick Protein 30 Not Available In-Office Order Internal Use Only DO Not Attach Compendium DO Not Attach Compendium, Do Not Delete/merge, 03/13/2017 12:58:31 03/13/2003/13/2017 urina lysis , dipst ick pH 7.0 Not Available In-Office Order Internal Use Only DO Not Attach Compendium DO Not Attach Compendium, Do Not Delete/merge, 03/13/2017 12:58:31 03/13/2003/13/2017 urina lysis , dipst ick Blood Non-He molyze d: Trace Not Available In-Office Order Internal Use Only DO Not Attach Compendium DO Not Attach Compendium, Do Not Delete/merge, 03/13/2017 12:58:31 03/13/2003/13/2017 urina lysis , dipst ick Specific [place] 1.020 Not Available In-Off ice Order Internal Use Only DO Not Attach Compendium DO Not Attach Compendium, Do Not Delete/merge, 03/13/2017 12:58:31 03/13/2003/13/2017 urina lysis , dipst ick Ketone Trace Not Available In-Office Order Internal Use Only DO Not Attach Compendium DO Not Attach Compendium, Do Not Delete/merge, [id number] 03/13/2017 12:58:31 03/13/20 17 03/13/2017 urina lysis , dipst ick Bilirubin Modera te Not Available In-Office Order Internal Use Only DO Not Attach Compendium DO Not Attach Compendium, Do Not Delete/merge, [id number] 03/13/2017 12:58:31 03/13/20 17 03/13/2017 urina lysis , dipst ick Glucose 100 Not Available In-Office Order Internal Use Only DO Not Attach Compendium DO Not Attach Compendium, Do Not Delete/merge, [id number] 03/13/2017 12:58:31 03/12/20 17 03/12/2017 pregn ruben test, urine HCG positi ve Not Available In-Office Order Internal Use Only DO Not Attach Compendium DO Not Attach Compendium, Do Not Delete/merge, [id number] 03/12/2017 16:23:57 03/12/20 17 03/14/2017 cultu re, urine urine culture, routine FINAL REPORT Not Available [facility] ([facility]) [address] [facility], [place], [address], 03/14/2017 06:06:25 03/12/20 17 03/14/2017 cultu re, urine result 1 COMMEN T MIXED UROGE NITAL LEAH LESS THAN 10,00 0 COLON IES/M L Not Available [facility] ([facility]) [address] [place], [address], 03/14/2017 06:06:25 03/12/20 17 03/14/2017 pap, IG + HPV, cervi am[place] diagnosis: COMMEN T NEGAT GUSTAVO FOR INTRA EPITH ELIAL LESIO N AND [place] . PREDO MINAN CE OF [place]CC[place] BACIL LI CONSI STENT WITH SHIFT IN VAGIN AL LEAH IS PRESE NT. Not Available [facility] ([facility]) [address] [facility], [place], [address], 03/15/2017 06:05:55 03/12/20 17 03/14/2017 pap, IG + HPV, cervi [place] specimen adequacy: GUERO Poole SATIS FACTO RY FOR EVALU ATION . NO ENDOC ERVIC AL COMPO NENT IS IDENT IFIED . Not Available [facility] ([facility]) [address] [place], [address], 03/15/2017 06:05:55 03/12/20 17 03/14/2017 pap, IG + HPV, cervi [place] clinician provided ICD10: GUERO Poole Z34.9 1 E66.9 Not Available [facility] ([facility]) [address] [place], [address], 03/15/2017 06:05:55 03/12/20 17 03/14/2017 pap, IG + HPV, cervi amer[place] performed by: JEFF SUAREZ Not Available [facility] ([facility]) [address] [place], [address], 03/15/2017 06:05:55 03/12/20 17 03/14/2017 pap, IG + HPV, cervi amer[place] . . Not Available [facility] ([facility]) [address] [place], [address], 03/15/2017 06:05:55 03/12/20 17 03/14/2017 pap, IG + HPV, cervi [place] pathologist provided ICD10: GUERO Poole R87.5 Not Available [facility] ([facility]) [address] [place], [address], 03/15/2017 06:05:55 03/12/20 17 03/14/2017 pap, IG + HPV, cervi amer[place] note: GUERO Poole THE PAP SMEAR IS A SCREE GEORGINA TEST DESIG CHARLENE TO AID IN THE DETEC TION OF MIKA LIGNA NT AND MALIG NANT CONDI TIONS OF THE UTERI NE CERVI X. IT IS NOT A DIAGN OSTIC PROCE DURE AND SHOUL D NOT BE USED THE SOLE MEANS OF DETEC TING CERVI [place] CANCE R. BOTH FALSE -POSI TIVE AND FALSE -NEGA TIVE REPOR TS DO OCCUR . Not Available [facility] ([facility]) [address] [facility], [place], [address], 03/15/2017 06:05:55 03/12/20 17 03/14/2017 pap, IG + HPV, cervi amer[place] HPV aptima NEGATI VE negati ve THIS TEST DETEC TS FOURT EEN HIGH- RISK HPV TYPES (16/1 8/31/ 33/35 /39/4 5/ 51/52 /56/5 8/59/ 66/68 ) WITHO UT DIFFE RENTI ATION . Not Available [facility] ([facility]) [address] [facility], [place], [address], 03/15/2017 06:05:55 03/12/20 17 03/13/2017 toxas sure selec t 13 () report summary TNP NO SPECI MEN RECEI HARESH. Not Available [facility] [address], [place], [address], 03/15/2017 14:14:04 03/12/20 17 03/13/2017 toxas sure selec t 13 () pdf CERTIFIED PROFESSIONAL MIDWIFE Not Available [facility] [address], [place], [address], 03/15/2017 14:14:04 03/12/20 17 03/14/2017 bacte rial vagin osis + vagin itis panel , vagin al atopobium vaginae HIGH - 2 score abnormal Not Available [facility] ([facility]) [address] [facility], [place], [address], 03/15/2017 14:14:05 03/12/20 17 03/14/2017 bacte rial vagin osis + vagin itis panel , vagin al bvab 2 MODERA TE - 1 score Not Available [facility] ([facility]) [address] [facility], [place], [address], 03/15/2017 14:14:05 03/12/20 17 03/14/2017 bacte rial vagin osis + vagin itis panel , vagin al megasphaera 1 HIGH - 2 score abnormal CALCU LATE TOTAL SCORE BY DONNA Oneill THE 3 INDIV IDUAL BACTE RIAL VAGIN OSIS (BV) MARKE R SCORE S TOGET HER. TOTAL SCORE IS INTER PRETE D FOLLO WS: TOTAL SCORE 0-1: INDIC ATES THE ABSEN CE OF BV. TOTAL SCORE 2: INDET ERMIN ATE FOR BV. ADDIT IONAL CLINI [place] DATA SHOUL D BE EVALU ATED TO ESTAB SHASTA A DIAGN OSIS. TOTAL SCORE 3-6: INDIC ATES THE PRESE NCE OF BV. THIS TEST WAS DEVEL OPED AND ITS PERFO RMANC E BREANA CTERI STICS DETER MINED BY [employer]. IT HAS NOT BEEN CLEAR ED OR APPRO HARESH BY THE FOOD AND DRUG ADMIN ISTRA TION. THE FDA HAS DETER MINED THAT SUCH CLEAR ANCE OR APPRO KAREN IS NOT NECES TALIA. Not Available [facility] ([facility]) [address] [place], [address], 03/15/2017 14:14:05 03/12/20 17 03/15/2017 bacte rial vagin osis + vagin itis panel , vagin al richar albicans, JEFFERSON NEGATI VE negati ve Not Available [facility] ([facility]) [address] [place], [address], 03/15/2017 14:14:05 03/12/20 17 03/15/2017 bacte rial vagin osis + vagin itis panel , vagin al richar glabrata, JEFFERSON NEGATI VE negati ve THIS TEST WAS DEVEL OPED AND ITS PERFO RMANC E BREANA CTERI STICS DETER MINED BY [employer]. IT HAS NOT BEEN CLEAR ED OR APPRO HARESH BY THE FOOD AND DRUG ADMIN ISTRA TION. THE FDA HAS DETER MINED THAT SUCH CLEAR ANCE OR APPRO KAREN IS NOT NECES TALIA. Not Available [facility] ([facility]) [address] [place], [address], 03/15/2017 14:14:05 03/12/20 17 03/15/2017 bacte rial vagin osis + vagin itis panel , vagin al trich vag by JEFFERSON NEGATI VE negati ve Not Available [facility] ([facility]) [address] [place], [address], 03/15/2017 14:14:05 03/12/20 17 03/15/2017 bacte rial vagin osis + vagin itis panel , vagin al chlamydia trachomatis, JEFFERSON NEGATI VE negati ve Not Available [facility] ([facility]) [address] [place], [address], 03/15/2017 14:14:05 03/12/20 17 03/15/2017 bacte rial vagin osis + vagin itis panel , vagin al neisseria gonorrhoeae, JEFFERSON NEGATI VE negati ve Not Available [facility] ([facility]) [address] [place], [address], 03/15/2017 14:14:05 03/12/20 17 03/12/2017 afp (alph a-fet oprot ein) panel , mater nal scree n, serum results COMMEN T Not Available [facility] ([facility]) [address] [place] [address], [address], 03/15/2017 14:14:05 03/12/20 17 03/12/2017 afp (alph a-fet oprot ein) panel , mater nal scree n, serum comments: COMMEN T MIKKI BERUMEN, PH.D. , FACMG PRINC IPAL LIZETH ICS TECHN ICAL DIREC TOR REFER ENCES : AVAIL ABLE UPON REQUE ST. MULTI PLES OF MEDIA N CUTOF FS ABBRE VIATI ON DEFIN ITION S FOR AFP ELEVA TIONS IDD- INSUL IN DEP DIABE KATHERINE SINGL ETON 2.5 BLACK 2.8 OSBR- OPEN SPINA BIFID A IDD 2.0 TWINS 4.5 RISK DSR CUTOF F 1:270 DSR- DOWN SYNDR OME RISK T18 CUTOF F 1:100 T18- TRISO MY 18 DOWN SYNDR OME AND TRISO MY 18 SCREE GEORGINA ARE CONSI DERED INVES TIGAT IONAL FOR [facility] ER INQUI SUDHA CONTA CT [facility] RP LIZETH ICS SERVI RYAN AT [phone] -[phone]- GENE. Not Available [facility] ([facility]) [address] [place], [address], 03/15/2017 14:14:05 03/12/20 17 03/13/2017 afp (alph a-fet oprot ein) panel , mater nal scree n, serum test results: TNP NO SPECI MEN RECEI HARESH. Not Available [facility] ([facility]) [address] [place], [address], 03/15/2017 14:14:05 03/12/20 17 03/13/2017 afp (alph a-fet oprot ein) panel , mater nal scree n, serum gest. age on collection date CERTIFIED PROFESSIONAL MIDWIFE Not Available [facility] ([facility]) [address] [place], [address], 03/15/2017 14:14:05 03/12/20 17 03/13/2017 afp (alph a-fet oprot ein) panel , mater nal scree n, serum gestat. age based on CERTIFIED PROFESSIONAL MIDWIFE Not Available [facility] ([facility]) [address] [place], [address], 03/15/2017 14:14:05 03/12/20 17 03/13/2017 afp (alph a-fet oprot ein) panel , mater nal scree n, serum maternal age at king CERTIFIED PROFESSIONAL MIDWIFE Not Available [facility] ([facility]) [address] [place], [address], 03/15/2017 14:14:05 03/12/20 17 03/13/2017 afp (alph a-fet oprot ein) panel , mater nal scree n, serum race CERTIFIED PROFESSIONAL MIDWIFE Not Available [facility] ([facility]) [address] [place], [address], 03/15/2017 14:14:05 03/12/20 17 03/13/2017 afp (alph a-fet oprot ein) panel , mater nal scree n, serum weight CERTIFIED PROFESSIONAL MIDWIFE Not Available [facility] ([facility]) [address] [place], [address], 03/15/2017 14:14:05 03/12/20 17 03/13/2017 afp (alph a-fet oprot ein) panel , mater nal scree n, serum insulin dep diabetes CERTIFIED PROFESSIONAL MIDWIFE Not Available [facility] ([facility]) [address] [place], [address], 03/15/2017 14:14:05 03/12/20 17 03/13/2017 afp (alph a-fet oprot ein) panel , mater nal scree n, serum multiple gestation CERTIFIED PROFESSIONAL MIDWIFE Not Available [facility] ([facility]) [address] [place], [address], 03/15/2017 14:14:05 03/12/20 17 03/13/2017 afp (alph a-fet oprot ein) panel , mater nal scree n, serum AFP value TNP TEST NOT PERFO RMED Not Available [facility] ([facility]) [address] [place], [address], 03/15/2017 14:14:05 03/12/20 17 03/13/2017 afp (alph a-fet oprot ein) panel , mater nal scree n, serum AFP MOM CERTIFIED PROFESSIONAL MIDWIFE Not Available [facility] ([facility]) [address] [place], [address], 03/15/2017 14:14:05 03/12/20 17 03/13/2017 afp (alph a-fet oprot ein) panel , mater nal scree n, serum HCG value TNP TEST NOT PERFO RMED Not Available [facility] ([facility]) [address] [place], [address], 03/15/2017 14:14:05 03/12/20 17 03/13/2017 afp (alph a-fet oprot ein) panel , mater nal scree n, serum HCG MOM CERTIFIED PROFESSIONAL MIDWIFE Not Available [facility] ([facility]) [address] [place], [address], 03/15/2017 14:14:05 03/12/20 17 03/13/2017 afp (alph a-fet oprot ein) panel , mater nal scree n, serum UE3 value TNP TEST NOT PERFO RMED Not Available [facility] ([facility]) [address] [place], [address], 03/15/2017 14:14:05 03/12/20 17 03/13/2017 afp (alph a-fet oprot ein) panel , mater nal scree n, serum UE3 MOM CERTIFIED PROFESSIONAL MIDWIFE Not Available [facility] ([facility]) [address] [place], [address], 03/15/2017 14:14:05 03/12/20 17 03/13/2017 afp (alph a-fet oprot ein) panel , mater nal scree n, serum MARIA L value TNP TEST NOT PERFO RMED Not Available [facility] ([facility]) [address] [place], [address], 03/15/2017 14:14:05 03/12/20 17 03/13/2017 afp (alph a-fet oprot ein) panel , mater nal scree n, serum MARIA L MOM CERTIFIED PROFESSIONAL MIDWIFE Not Available [facility] ([facility]) [address] [place], [address], 03/15/2017 14:14:05 03/12/20 17 03/13/2017 afp (alph a-fet oprot ein) panel , mater nal scree n, serum OSBR risk 1 in CERTIFIED PROFESSIONAL MIDWIFE Not Available [facility] ([facility]) [address] [place], [address], 03/15/2017 14:14:05 03/12/20 17 03/13/2017 afp (alph a-fet oprot ein) panel , mater nal scree n, serum DSR (second trimester) 1 in CERTIFIED PROFESSIONAL MIDWIFE Not Available [facility] ([facility]) [address] [facility], [place], [address], 03/15/2017 14:14:05 03/12/20 17 03/13/2017 afp (alph a-fet oprot ein) panel , mater nal scree n, serum DSR (by age) 1 in CERTIFIED PROFESSIONAL MIDWIFE Not Available [facility] ([facility]) [address] [place], [address], 03/15/2017 14:14:05 03/12/20 17 03/13/2017 afp (alph a-fet oprot ein) panel , mater nal scree n, serum T18 risk CERTIFIED PROFESSIONAL MIDWIFE Not Available [facility] ([facility]) [address] [place], [address], 03/15/2017 14:14:05 03/12/20 17 03/13/2017 afp (alph a-fet oprot ein) panel , mater nal scree n, serum T18 (by age) CERTIFIED PROFESSIONAL MIDWIFE Not Available [facility] ([facility]) [address] [place], [address], 03/15/2017 14:14:05 03/12/20 17 03/13/2017 afp (alph a-fet oprot ein) panel , mater nal scree n, serum interpretati on CERTIFIED PROFESSIONAL MIDWIFE Not Available [facility] ([facility]) [address] [place], [address], 03/15/2017 14:14:05 03/12/20 17 03/13/2017 afp (alph a-fet oprot ein) panel , mater nal scree n, serum pdf CERTIFIED PROFESSIONAL MIDWIFE Not Available [facility] ([facility]) [address] [place], [address], 03/15/2017 14:14:05 03/12/20 17 03/13/2017 CBC w/ auto diff WBC TNP x10e3 /uL NO SPECI MEN RECEI HARESH. Not Available [facility] ([facility]) [address] [place], [address], 03/15/2017 14:14:06 03/12/20 17 03/13/2017 CBC w/ auto diff RBC TNP TEST NOT PERFO RMED Not Available [facility] ([facility]) [address] [place], [address], 03/15/2017 14:14:06 03/12/20 17 03/13/2017 CBC w/ auto diff hemoglobin TNP TEST NOT PERFO RMED Not Available [facility] ([facility]) [address] [place], [address], 03/15/2017 14:14:06 03/12/20 17 03/13/2017 CBC w/ auto diff hematocrit TNP TEST NOT PERFO RMED Not Available [facility] ([facility]) [address] [place], [address], 03/15/2017 14:14:06 03/12/20 17 03/13/2017 CBC w/ auto diff MCV CERTIFIED PROFESSIONAL MIDWIFE Not Available [facility] ([facility]) [address] [place], [address], 03/15/2017 14:14:06 03/12/20 17 03/13/2017 CBC w/ auto diff MCH CERTIFIED PROFESSIONAL MIDWIFE Not Available [facility] ([facility]) [address] [place], [address], 03/15/2017 14:14:06 03/12/20 17 03/13/2017 CBC w/ auto diff [facility] CERTIFIED PROFESSIONAL MIDWIFE Not Available [facility] ([facility]) [address] [place], [address], 03/15/2017 14:14:06 03/12/20 17 03/13/2017 CBC w/ auto diff RDW CERTIFIED PROFESSIONAL MIDWIFE Not Available [facility] ([facility]) [address] [facility], [place], [address], 03/15/2017 14:14:06 03/12/20 17 03/13/2017 CBC w/ auto diff platelets TNP TEST NOT PERFO RMED Not Available [facility] ([facility]) [address] [facility], [place], [address], 03/15/2017 14:14:06 03/12/20 17 03/13/2017 CBC w/ auto diff neutrophils TNP TEST NOT PERFO RMED Not Available [facility] ([facility]) [address] [place], [address], 03/15/2017 14:14:06 03/12/20 17 03/13/2017 CBC w/ auto diff lymphs TNP TEST NOT PERFO RMED Not Available [facility] ([facility]) [address] [facility], [place], [address], 03/15/2017 14:14:06 03/12/20 17 03/13/2017 CBC w/ auto diff monocytes TNP TEST NOT PERFO RMED Not Available [facility] ([facility]) [address] [place], [address], 03/15/2017 14:14:06 03/12/20 17 03/13/2017 CBC w/ auto diff eos TNP TEST NOT PERFO RMED Not Available [facility] ([facility]) [address] [place], [address], 03/15/2017 14:14:06 03/12/20 17 03/13/2017 CBC w/ auto diff basos CERTIFIED PROFESSIONAL MIDWIFE Not Available [facility] ([facility]) [address] [place], [address], 03/15/2017 14:14:06 03/12/20 17 03/13/2017 CBC w/ auto diff immature cells CERTIFIED PROFESSIONAL MIDWIFE Not Available [facility] ([facility]) [address] [place], [address], 03/15/2017 14:14:06 03/12/20 17 03/13/2017 CBC w/ auto diff neutrophils (absolute) CERTIFIED PROFESSIONAL MIDWIFE Not Available [facility] ([facility]) [address] [place], [address], 03/15/2017 14:14:06 03/12/20 17 03/13/2017 CBC w/ auto diff lymphs (absolute) TNP TEST NOT PERFO RMED Not Available [facility] ([facility]) [address] [place], [address], 03/15/2017 14:14:06 03/12/20 17 03/13/2017 CBC w/ auto diff monocytes(ab solute) CERTIFIED PROFESSIONAL MIDWIFE Not Available [facility] ([facility]) [address] [place], [address], 03/15/2017 14:14:06 03/12/20 17 03/13/2017 CBC w/ auto diff eos (absolute) TNP TEST NOT PERFO RMED Not Available [facility] ([facility]) [address] [place], [address], 03/15/2017 14:14:06 03/12/20 17 03/13/2017 CBC w/ auto diff baso (absolute) TNP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 TO 2021 (MEDICAID REPLACEMENT - HMO) Yadira Freire [id number] Yadira Freire 02/22/2021 1 [facility] (O) Yadira Freire [id number] Yadira Freire 11/04/2020 2 [facility] [place] ([place]) Yadira Freire [id number] Yadira Freire 02/22/2021 1 [place] [facility] Yadira Freire [id number] Yadira Freire Notes Date Note Type Note Provider Name and Address Organization Details Recorded Time 03/12/2017 text/html OB ProblemReport ed by PatientHPIFor associated symptoms, patient reportsno abdominal pain,no cramping,no contractions,normal movement,no bleeding,no rom,no vaginal discharge,no vaginal/vulvar itching or irritation,no dysuria,no frequency,no urgency,no hematuria,no fever,no nausea,no emesis,no constipation,no diarrhea/loose stool,no edema,no visual changes,no headache, andno dizziness. SHE WAS ADMITTED IN [facility] FOR HYPEREMESIS AND WAS GIVEN IV FLUIDS. SHE SAY HER NAUSEA AND VOMITING IMPROVED. Herlinda Olivares MA [facility], [facility] 03/13/2017 13:00:04 10/31/2020 text/html Has had burning sensation in her hands for the past year. 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 Blaine Herrera MD Attn: Accounting[address] [place], [address], [facility] 10/31/2020 12:02:55 OBGyn Episode Ob Episode Information Episode Created Date Number of Fetuses Patient Bloodtype Patient rh Status Prepregnancy Weight lbs Domestic Partner Domestic Partner Phone Father Name Fish Dressing Machine Feeder Status 03/12/20 17 1 CLOSED Fetus Data First Name Last Name Admitted to NICU Weight (g) Sex Living Outcome Pediatric Complications Fetus ID Race Codes Race Delivery Type 3146.56 [id number] M Full Term [id number] King Calculation Initial King Date Initial Exam Date Initial Exam Provider Initial Ultrasound Date Last Menstrual Period Date Ultra Sound Weeks Gestation 0 Eighteen To Twenty Week King Update Ultra Sound Date Fundal Height At Umbil Quickening Date Ultra Sound Latest Weeks Gestation Final King Confirmed By Final King Confirmed Date Final King Date Ultra Sound Latest Days Gestation 0 0 Menstrual History Last Menstrual Date Menses Monthly On Bcp Conception Prior Menses Frequency Hcg Plus Date Menarche Onset Age Delivery Information Delivery Date Delivery Type Labor Anesthesia Weeks Gestation Incision Type Labor Labor Length Hrs Delivered By Post Complications Tubal Sterilization Discharge Date Comments 1 Regional-Sp inal [address] Quiñonez delivered baby miguel 7 Discharge Information Feeding Method Contraceptive Method Maternal HG B and HCT Levels Ob Episode Information Episode Created Date Number of Fetuses Patient Bloodtype Patient rh Status Prepregnancy Weight lbs Domestic Partner Domestic Partner Phone Father Name Fish Dressing Machine Feeder Status 03/12/20 17 1 CLOSED Fetus Data First Name Last Name Admitted to NICU Weight (g) Sex Living Outcome Pediatric Complications Fetus ID Race Codes Race Delivery Type [id number] King Calculation Initial King Date Initial Exam Date Initial Exam Provider Initial Ultrasound Date Last Menstrual Period Date Ultra Sound Weeks Gestation 08/21/2017 03/12/2017 [email or web address] 03/01/2017 11/21/2016 15 Eighteen To Twenty Week King Update Ultra Sound Date Fundal Height At Umbil Quickening Date Ultra Sound Latest Weeks Gestation Final King Confirmed By Final King Confirmed Date Final King Date Ultra Sound Latest Days Gestation 0 [email or web address] 03/12/2017 08/21/20 17 0 Pre- Flowsheet Flowsheet Date 03/12/2017 Morrison Score Blood Edema Fundus Height Fundus Units Glucose Ketones Leukocytes Nitrite Labor Signs Protein Cervic Dilation Cervic Effacement Cervic Station trace none 15 wks 1+ small none 1+ 0cm 0% -4 Type Weight in lbs Pre/Post Dialysis Refused [id number] BP Diastolic BP Location Tested BP Systolic BP Type 88 98 sitting Fetus Heart Rate Present A 145 Present Fetus Movement A Yes Comments U A positive glucose. since she is obese and positive glucose will check 1 hr GTT.SHE WAS ADMITTED IN [facility] FOR HYPEREMESIS AND WAS GIVEN IV FLUIDS. SHE HAD PICC LINE PLACED AND REMOVED RECENTLY.SHE SAY HER NAUSEA AND VOMITING IMPROVED.SHE SAY SHE HAS H/O DEPRESSION. SHE SAY SHE WAS ON ZOLOFT FOR DEPRESSION BEFORE AND SHE STOPPED WHEN SHE FOUND THAT SHE IS . WILL START HER ON 50 MG OF ZOLOFT. COUNSELED ABOUT RISKS AND BENEFITS AND EFFECT ON FETUS. SHE VERBALIZED UNDERSTANDING. Menstrual History Last Menstrual Date Menses Monthly On Bcp Conception Prior Menses Frequency Hcg Plus Date Menarche Onset Age 0211/21/2016 true false 28 7 15 Genetic Screening And Infection History Question Response Note Patient's Age Will Be 35 Years Or Older At Estim ated Date of Delivery false Thalassemia (Peruvian, Frisian, Mediterranean, Or Background): MCV < 80 false Neural Tube Defect (Meningomyelocele, Spina Bifi da, Or Anencephaly) false Congenital Heart Defect false Down Syndrome false Joo-Sachs (eg, Quaker, Cajun, British-Orleans) f alse Alex Disease false Sickle Cell Disease Or Trait () false Hemophilia Or Other Blood Disorders false Muscular Dystrophy false Cystic Fibrosis false [place]'s Chorea false Mental Retardation/Autism false If Yes, Was Person Tested For Fragile X? false Other Inherited Genetic Or Chromosomal Disorder false Maternal Metabolic Disorder (eg, Type 1 Diabetes , PKU) false Patient Or Baby's Father Had A Child With Defects Not Listed Above false Recurrent Loss, Or A Stillbirth false Medications (including Suppl ements, Vitamins, Herbs, OTC Drugs), Illicit/Recreational Drugs, Alcohol false If Yes, Agent(s) And Strength/Dosage false Any Other Genetic History false Live With Someone With TB Or Exposed To TB false Patient Or Partner Has History Of Genital Herpes false Rash Or Viral Illness Since Last Menstrual Perio d false History Of STD, Gonorrhea, Chlamydia, HPV, Syphi lis false Other Infection History false Plans and Education First Trimester Discussed Date Discussion Item Discussion Note Discuss ed By 03/12/2017 [facility] 03/12/2017 Environmental/work hazards s 03/12/2017 Screening for aneuploidy [facility] 03/12/2017 Nutrition counseling ; special diet; dietary precautions (mercury, listeriosis) [facility] 03/12/2017 Childbirth classes/h [facility]spital facilities [facility] 03/12/2017 HIV and other routin e tests [facility] 03/12/2017 Risk factors identif ied by history [facility] 03/12/2017 [facility] 03/12/2017 Exercise Occasional mievriesnd 03/12/2017 Teratogens [facility] 03/12/2017 Use of any medicatio ns (including supplements, vitamins, herbs, or OTC drugs) [facility] 03/12/2017 try breastfeed mievriesnd 03/12/2017 Sexual activity yes [facility] 03/12/2017 Tobacco/smoking cess ation counseling (ask, advise, assess, assist, and arrange) [facility] 03/12/2017 Illicit/recreational drugs yes c lean 3 days sd-ma 03-12-2017 sdevriesnd 03/12/2017 [facility] 03/12[facility]2017 [facility] 03/12/[address] [facility] [address] [facility] 03/12/2017 Indications for ultrasonography [facility] 03/12/2017 Avoidance of saunas or hot tubs [facility] 03/12/2017 Toxoplasmosis precau tions (cats/raw meat) [facility] Second Trimester Discussed Date Discussion Item Discussion Note Discuss ed By Third Trimester Discussed Date Discussion Item Discussion Note Discuss ed By Delivery Information Delivery Date Delivery Type Labor Anesthesia Weeks Gestation Incision Type Labor Labor Length Hrs Delivered By Post Complications Tubal Sterilization Discharge Date Comments 7 43 Transfer Discharge Information Feeding Method Contraceptive Method Maternal HG B and HCT Levels Ob Episode Information Episode Created Date Number of Fetuses Patient Bloodtype Patient rh Status Prepregnancy Weight lbs Domestic Partner Domestic Partner Phone Father Name Fish Dressing Machine Feeder Status 03/12/20 17 1 CLOSED Fetus Data First Name Last Name Admitted to NICU Weight (g) Sex Living Outcome Pediatric Complications Fetus ID Race Codes Race Delivery Type , Spontane ous [id number] King Calculation Initial King Date Initial Exam Date Initial Exam Provider Initial Ultrasound Date Last Menstrual Period Date Ultra Sound Weeks Gestation 0 Eighteen To Twenty Week King Update Ultra Sound Date Fundal Height At Umbil Quickening Date Ultra Sound Latest Weeks Gestation Final King Confirmed By Final King Confirmed Date Final King Date Ultra Sound Latest Days Gestation 0 0 Menstrual History Last Menstrual Date Menses Monthly On Bcp Conception Prior Menses Frequency Hcg Plus Date Menarche Onset Age Delivery Information Delivery Date Delivery Type Labor Anesthesia Weeks Gestation Incision Type Labor Labor Length Hrs Delivered By Post Complications Tubal Sterilization Discharge Date Comments 5 5 false Discharge Information Feeding Method Contraceptive Method Maternal HG B and HCT Levels
--- OUTSIDE RECORDS SUMMARY | 2025-07-19 01:20 | XMS_ITS | Clinical Summary ---
Author Organization [facility] Address [address] [place] [address] Phone Care Team Providers Care Lathe Set Up Operator Name Role Phone Cristino Claire MD Primary Care Provider [phone] Allergies No known active allergies Medications No [...] age to complete this topic Care Teams Lathe Set Up Operator Relationship Specialty Start Date End Date Cristino Claire MD [address] [place] [address] PCP - General Family Medicine 01/14/17
--- OUTSIDE RECORDS SUMMARY | 2025-07-19 01:20 | XMS_ITS | Clinical Summary ---
Author Organization [facility] Address [address] [place] [address] Phone Care Team Providers Care Specifications Writer Name Role Phone KAROLINA GilbertSANDRA [phone] Reason for Visit and Chief Complaint * PHONE CALL Problems Includes: Problems addressed during this encounter and other active Problems All Visits Onset Date Resolved Date Provider Condition S tatus Tobacco Use 05/02/2010 Unknown FATIMAH TALBERT MD Resolve d Last Documented On 01/01/2011 8:57AM ; [facility] Note: was Closed. Plan of Treatment No Plan of Treatment Recorded Assessments Includes: Assessments from this encounter Findings - Normal checkup (6 - 42 wk) - Last Documented On 11/10/2010 3:23PM ; [facility] Medical Equipment - Implanted Devices Includes: Current Devices No Medical Equipment Recorded Medications Includes: Medications discussed during this encounter and other current Medications Current Medications (continue as prescribed) Mirena (52 MG) 20 MCG/24HR IU IUD 01/18/2011 Provide r: Diagnosis: Inserted 01-18-11 Last Documented On 01/18/2011 3:52PM By SIMEON HA ; [facility] Past Medications on file Promethazine HCl 25 MG OR TABS 09/28/2010 - 10/12/2010 Provider: FATIMAH TALBERT MD Diagnosis: Last Documented On 09/28/2010 9:59AM By FATIMAH TALBERT MD ; [facility] Ondansetron HCl 8 MG OR TABS 09/28/2010 - 10/18/2010 P rovider: FATIMAH TALBERT MD Diagnosis: i po Q8 hours prn nausea Last Documented On 09/28/2010 9:59AM By FATIMAH TALBERT MD ; [facility] Wrist Brace Ultra-Lite MISC 08/17/2010 - 11/15/2010 Pr ovider: FATIMAH TALBERT MD Diagnosis: i right and i left wrist bra ce for carpal tunnel syndrome please Last Documented On 08/17/2010 9:24AM By FATIMAH TALBERT MD ; [facility] 19 OR TABS 03/31/2010 - 03/26/2011 Provider: CHAS HUGGINS Diagnosis: Last Documented On 0 9:44AM By CHAS HUGGINS ; [facility] Medications Administered Includes: Administered Medications from this [...] Location Date Check-In Time Check-Out Time Diagnosis * PHONE CALL FATIMAH TALBERT MD [facility] CLOTH FOLDER HAND 11/10/19 11 3:13PM 11:59PM Routine Checkup (6 - 42 Wk) Clinical Notes Includes: Clinical Notes from this encounter No Clinical Notes Recorded
--- OUTSIDE RECORDS SUMMARY | 2025-07-19 01:20 | XMS_ITS ---
Author Organization [facility] Address [address] [place] [address] Phone Care Team Providers Care Drug Room Operator Name Role Phone KAROLINA HuntSANDRA [phone] Problems Includes: Active, inactive, and resolved Problems All Visits Onset Date Resolved Date Provider Condition S tatus Tobacco Use 05/02/2010 Unknown FATIMAH TALBERT MD Resolve d Last Documented On 01/01/2011 8:57AM ; [facility] Note: was Closed. Plan of Treatment Findings Encounter Date Advised pt. to contact fob ( not involved) to see if he would be willing to be tested for cf screen MISSED MENSES with CHAS CASTILLO [facility]- 03/31/2010 Last Documented On 0 10:02AM ; [facility] Education and Decision Aids were provided during visit for: Smoking cessation advised Last Documented On 0 9:38AM ; [facility] New OB form given to patient SAB precautions reviewed and pnv samples given. Advised H1N1 and seasonal flu vaccine Last Documented On 0 9:36AM ; [facility] Assessments Includes: Assessments for all patient encounters Findings Encounter Date Contraceptive management 1 MONTH CHECK with FATIMAH TALBERT MD 02/22/2011 Last Documented On 1 3:39PM ; [facility] Menometrorrhagia 1 MONTH CHECK with FATIMAH Malik MD 02/22/2011 Last Documented On 1 3:39PM ; [facility] Contraceptive management: In sertion of IUD POST VISIT with FATIMAH TALBERT MD 01/18/2011 Last Documented On 1 3:54PM ; [facility] Normal checkup (6 - 42 wk) * PHONE CALL with FATIMAH TALBERT MD 11/10/2010 Last Documented On 1 3:23PM ; [facility] Normal checkup (6 - 42 wk) RETURN OB EX AM with FATIMAH TALBERT MD 11/09/2010 Last Documented On 1 10:06AM ; [facility] Normal checkup (6 - 42 wk) [Pat ient Encounter] with FATIMAH TALBERT MD 11/06/2010 Last Documented On 1 2:53PM ; [facility] Normal checkup (6 - 42 wk) RETURN OB EX AM with FATIMAH TALBERT MD 11/02/2010 Last Documented On 1 2:05PM ; [facility] Normal checkup (6 - 42 wk) RETURN OB EX AM with FATIMAH TALBERT MD 10/27/2010 Last Documented On 1 10:42AM ; [facility] Normal checkup (6 - 42 wk) RETURN OB EX AM with FATIMAH TALBERT MD 10/19/2010 Last Documented On 0 10:05AM ; [facility] Normal checkup (6 - 42 wk) [Pat ient Encounter] with FATIMAH TALBERT MD 10/12/2010 Last Documented On 0 10:15AM ; [facility] Normal checkup (6 - 42 wk) RETU RN OB EXAM with CHAS HUGGINS 10/11/2010 Last Documented On 0 10:30AM ; [facility] Normal checkup (6 - 42 wk) RETURN OB EX AM with FATIMAH TALBERT MD 09/28/2010 Last Documented On 0 9:57AM ; [facility] Normal checkup (6 - 42 wk) * PHONE CALL with FATIMAH TALBERT MD 09/25/2010 Last Documented On 0 12:48PM ; [facility] Normal checkup (6 - 42 wk) RETU RN OB EXAM with CHAS HUGGINS 09/11/2010 Last Documented On 0 3:16PM ; [facility] Normal checkup (6 - 42 wk) * PHONE CALL with FATIMAH TALBERT MD 09/05/2010 Last Documented On 0 1:39PM ; [facility] Normal checkup (6 - 42 wk) RETURN OB EX AM with FATIMAH TALBERT MD 08/17/2010 Last Documented On 0 9:24AM ; [facility] Normal checkup (6 - 42 wk) RETU RN OB EXAM with CHAS CASTILLO [facility] 07/27/2010 Last Documented On 0 9:39AM ; [facility] Normal checkup (6 - 42 wk) RETURN OB EX AM with FATIMAH TALBERT MD 06/27/2010 Last Documented On 0 1:54PM ; [facility] Normal checkup (6 - 42 wk) RETU RN OB EXAM with CHAS A [facility] 05/29/2010 Last Documented On 0 3:19PM ; [facility] Normal checkup (6 - 42 wk) NEW OB EXAM with FATIMAH TALBERT MD 05/02/2010 Last Documented On 0 3:00PM ; [facility] Amenorrhea + ucg - 8 02/24 darek ks - edc 11-05-2010 MISSED MENSES with CHAS Jalloh [facility] 03/31/2010 Last Documented On 0 10:02AM ; [facility] Instructions Includes: Instructions for all patient encounters Education and Decision Aids were provided during visit for: Smoking cessation advised Last Documented On 0 9:38AM ; [facility] New OB form given to patient SAB precautions reviewed and pnv samples given. Advised H1N1 and seasonal flu vaccine Last Documented On 0 9:36AM ; [facility] Medical Equipment - Implanted Devices Includes: Current and historical Devices No Medical Equipment Recorded Medications Includes: Current and historical Medications Current Medications (continue as prescribed) Mirena (52 MG) 20 MCG/24HR IU IUD 01/18/2011 Provide r: Diagnosis: Inserted 01-18-11 Last Documented On 01/18/2011 3:52PM By SIMEON HA ; [facility] Past Medications on file Promethazine HCl 25 MG OR TABS 09/28/2010 - 10/12/2010 Provider: FATIMAH TALBERT MD Diagnosis: Last Documented On 09/28/2010 9:59AM By FATIMAH TALBERT MD ; [facility] Ondansetron HCl 8 MG OR TABS 09/28/2010 - 10/18/2010 P rovider: FATIMAH TALBERT MD Diagnosis: i po Q8 hours prn nausea Last Documented On 09/28/2010 9:59AM By FATIMAH TALBERT MD ; [facility] Wrist Brace Ultra-Lite MISC 08/17/2010 - 11/15/2010 Pr ovider: FATIMAH TALBERT MD Diagnosis: i right and i left wrist bra ce for carpal tunnel syndrome please Last Documented On 08/17/2010 9:24AM By FATIMAH TALBERT MD ; [facility] 19 OR TABS 03/31/2010 - 03/26/2011 Provider: CHAS HUGGINS Diagnosis: Last Documented On 0 9:44AM By CHAS HUGGINS ; [facility] Medications Administered Includes: Administered Medications in patient's chart No Administered Medications Recorded Results Includes: Results from 07/19/2024 through 07/19/2025 No Results Recorded For Specified Dates History of Present Illness History of Present Illness not supported for this document type No History of Present Illness Recorded Social History Description Last Updated Sexually active a few days ag o and used condoms 01/18/2011 Last Documented On 1 3:54PM ; [facility] Tobacco use 05/02/2010 Last Documented On 0 3:00PM ; [facility] Caffeine use 03/31/2010 Last Documented On 0 10:02AM ; [facility] Daily cola consumption 03/31/2010 Last Documented On 0 10:02AM ; [facility] Drug use by a sexual partner does not in clude intravenous drug use 03/31/2010 Last Documented On 0 10:02AM ; [facility] Educational level: grade 1 yr of college 03/31/2010 Last Documented On 0 10:02AM ; [facility] Not using condoms 03/31/2010 Last Documented On 0 10:02AM ; [facility] Not using intravenous drugs 03/31/2010 Last Documented On 0 10:02AM ; [facility] Partner has not had a STD in the past ye ar 03/31/2010 Last Documented On 0 10:02AM ; [facility] Patient does not report having sex when she didn't want to 03/31/2010 Last Documented On 0 10:02AM ; [facility] Patient has not had sex unde r the influence of alcohol or drugs in the last year 03/31/2010 Last Documented On 0 10:02AM ; [facility] Sexual partner has not had o ther partners while in relationship with patient 03/31/2010 Last Documented On 0 10:02AM ; [facility] Sexual partner has not had sex with pros titutes 03/31/2010 Last Documented On 0 10:02AM ; [facility] Sexually active with 1 partners in the l ast year 03/31/2010 Last Documented On 0 10:02AM ; [facility] Single 03/31/2010 Last Documented On 0 10:02AM ; [facility] The racial background white 03/31/2010 Last Documented On 0 10:02AM ; [facility] Cigarette smoking 03/31/2010 Last Documented On 0 10:02AM ; [facility] Cigarette smoking 0.1 pack-years 010 Last Documented On 0 10:02AM ; [facility] Sexually active 03/31/2010 Last Documented On 0 10:02AM ; [facility] Smoking Status Unknown Procedures and Surgical History Surgical History Last Updated No history of appendectomy 03/31/2010 Last Documented On 0 10:02AM ; [facility] No history of cholecystectomy 03/31/2010 Last Documented On 0 10:02AM ; [facility] No history of Loop electrode excision of cervix (LEEP) 03/31/2010 Last Documented On 0 10:02AM ; [facility] No history of total abdominal hysterecto my 03/31/2010 Last Documented On 0 10:02AM ; [facility] No history of tubal ligation 03/31/2010 Last Documented On 0 10:02AM ; [facility] No history of vaginal hysterectomy 03/31 Last Documented On 0 10:02AM ; [facility] Medical History Includes: Medical History in patient's chart Description Last Updated Baby thriving [place] 01/18/2011 Last Documented On 1 3:54PM ; [facility] Contraception: Mirena IUD 01/18/2011 Last Documented On 1 3:54PM ; [facility] Infant is bottle-feeding 01/18/2011 Last Documented On 1 3:54PM ; [facility] is not breast-feeding 01/18/2011 Last Documented On 1 3:54PM ; [facility] Last pap smear date 03/31/2010 WNL 2010 Last Documented On 1 3:54PM ; [facility] LMP: 02/22/2010 04/13/2010 Last Documented On 0 4:50PM ; [facility] A Pap smear was performed 03/31/2010 Last Documented On 0 10:02AM ; [facility] An HIV test was not performed 03/31/2010 Last Documented On 0 10:02AM ; [facility] Not previously diagnosed with a STD 03/21 Last Documented On 0 10:02AM ; [facility] 1 03/31/2010 Last Documented On 0 10:02AM ; [facility] No history of cervical dysplasia 010 Last Documented On 0 10:02AM ; [facility] No history of dysfunctional uterine blee ding 03/31/2010 Last Documented On 0 10:02AM ; [facility] No history of human papilloma virus infe ction 03/31/2010 Last Documented On 0 10:02AM ; [facility] No history of urinary tract infection Last Documented On 0 10:02AM ; [facility] No history of vaginitis 03/31/2010 Last Documented On 0 10:02AM ; [facility] Result: normal 03/31/2010 Last Documented On 0 10:02AM ; [facility] Family History Includes: Family History in patient's chart Description Last Updated Family medical history of high blood pre ssure 03/31/2010 Last Documented On 0 10:02AM ; [facility] Heart disease 03/31/2010 Last Documented On 0 10:02AM ; [facility] No family history of diabetes mellitus 0 03/31/2010 Last Documented On 0 10:02AM ; [facility] No family history of malignant female br east neoplasm 03/31/2010 Last Documented On 0 10:02AM ; [facility] No family history of malignant neoplasm of the large intestine 03/31/2010 Last Documented On 0 10:02AM ; [facility] No family history of malignant neoplasm of the ovary 03/31/2010 Last Documented On 0 10:02AM ; [facility] Review of Systems Review of Systems not supported for this document type No Review of Systems Recorded Mental Status No Mental Status Recorded Functional Status No Functional Status Recorded Physical Exam Physical Exam not supported for this document type No Physical Exam Recorded Allergies Includes: Active, inactive, and resolved Allergies No Known Allergies Clinical Notes Includes: Signed Clinical Notes starting from 11/09/2022 No Clinical Notes Recorded
[2025-07-19] MEDS: METOCLOPRAMIDE HCL INJ 10 MG/2 ML VIAL IV PUSH (01:48)
[2025-07-19 01:55] LABS: Alanine Aminotransferase 70 U/L (6-35); Albumin Level 4.0 g/dL (3.5-5.1); Alkaline Phosphatase 82 U/L (38-126); Anion Gap 6 mmol/L (4-12); Aspartate Amino Transferase 53 U/L (14-36); Bilirubin,Total 0.5 mg/dL (0.2-1.3); Blood Urea Nitrogen 7 mg/dL (7-17); Calcium 8.9 mg/dL (8.4-10.2); Carbon Dioxide 25 mmol/L (22-30); Chloride 104 mmol/L (98-107); Estimated Glomerular Filt Rate > 60; Glucose 116 mg/dL (65-110); Lipase 34 U/L (23-300); Magnesium 1.9 mg/dL (1.6-2.3); Potassium 4.3 mmol/L (3.4-5.0); Sodium 135 mmol/L (137-145); Total Protein 7.5 g/dL (6.3-8.2)
[2025-07-19 01:55] LABS: Influenza A QL RT-PCR Negative (Negative); Influenza B QL RT-PCR Negative (Negative); RSV RNA, RT-PCR Negative (Negative); SARS-CoV-2 RNA PCR Negative (Negative)
[2025-07-19 03:02] LABS: BEDSIDEPREGUCG Negative (Negative)
[2025-07-19] MEDS: HALOPERIDOL LACTATE 5 MG/ML VIAL IV PUSH (03:05)
[2025-07-19 03:58] LABS: Add Urine Microscopic? YES; Appearance Urine Turbid (Clear); Glucose Urine UA Negative (Negative); Leukocyte Esterase Ur 2+ LEU/UL (Negative); Need Manual Microscopic Reviewed; Nitrate Urine Negative (Negative); Non Pathogenic Casts 0-2; Specific Grav Ur 1.021 (1.001-1.035)
[2025-07-19 04:18] LABS: Cannabinoid Screen Urine Positive (Negative)
[2025-07-19] MEDS: cefTRIAXone 1 GM in SODIUM CHLORIDE 0.9% IV 50 ML 100 ML IVPB (04:26)
[2025-07-19 04:36] VITALS: BP 119/91; PULSE 96; RESP 16; O2SAT 97
== END 2025-07-19 04:36 | disposition home or self-care (01) ==
PROVIDERS: Emergency Provider Emergency Medicine; PCP Nurse Practitioner
DX: R11.2 Nausea with vomiting, unspecified (principal); E86.0 Dehydration; N39.0 Urinary tract infection, site not specified; R10.9 Unspecified abdominal pain; F19.10 Other psychoactive substance abuse, uncomplicated; F17.200 Nicotine dependence, unspecified, uncomplicated; Z20.822 Contact with and (suspected) exposure to COVID-19
CPT/HCPCS: 36415; 74177; 80053; 80307; 81001; 81025; 82948; 83690; 83735; 85025; 87637; 96361; 96365; 96375; 99284; J0696; J1200; J1630; J2405; J2765; J7030; Q9967